=== PATIENT | male | born 1930 | race Caucasian/White ===

== ENCOUNTER 2016-09-18 09:52 | Inpatient (IN) | payer OTHER, MEDICARE ==
[~2016-09-18] VITALS: Ht 182.9 cm; Wt 139.9 kg
[~2016-09-18 09:52] MED LIST: ADVAIR 250-501 EACH INH; ALBUTEROL 3 ML3 ML INH; ASPIRIN EC81 M1 PO; ATROVENT HFA 121 PUF INH; AZITHROMYCIN500 MG PO; CALCIPOTRIENE60 G1 TOP; CLARITIN10 MG PO; DOVONEX0.0051 TD; FOLIC ACID1 M1 PO; HALOBETASOL PRO PO; HYDROXYZINE HCL25 M2 PO; LASIX20 MG PO; LASIX40 MG PO; MAGNESIUM OXID400 M1 PO; MEDROL4 M2 PO; MELOXICAM15 M1 PO; MELOXICAM15 MG PO; METHOTREXATE2.5 M1 PO; MOBIC 15MG15 MG PO; NAPROXEN500 MG PO; PREDNISONE10 MG PO; SIMVASTATIN40 M1 PO; TOPROL XL25 M1 PO; TOPROL XL50 MG PO; TRIAMCINOL0.1 %/453 TOP; TRIAMCINOLONE A15 G3 TOP; VENTOLIN HFA18 GM INH; VITAMIN D50000 IU PO; [UNRECOGNIZED DRUG - OTHER] PO
--- NOTE | 2016-09-18 10:16 | ED INFLUENZA/URI COMPLAINT ---
History of Present Illness General Chief Complaint: Upper Respiratory Sx/Fever Stated Complaint: URI Source: patient, family Exam Limitations: no limitations Vital Signs & Intake/Output Vital Signs & Intake/Output Vital Signs Date Time Temp Pulse Resp B/P Pulse O2 O2 Flow FiO2 Ox Delivery Rate 09/18 1431 120/84 09/18 1250 96.3 70 18 124/86 97 Room Air 09/18 1107 95 09/18 1015 98 09/18 1000 96.0 74 20 129/93 98 Room Air Allergies Coded Allergies: NO KNOWN ALLERGIES (12/23/15) Reconcile Medications Albuterol Sulfate (Ventolin Hfa) 18 GM HFA.AER.AD 2 PUF INH Q4-6 PRN PRN ASTHMA (Reported) Aspirin (Ecotrin) 81 MG TABLET.DR 1 TAB PO DAILY HEART HEALTH (Reported) Calcipotriene 60 GM CREAM..G. 1 CED TOP AD SKIN (Reported) FLUTICASONE/SALMETEROL (Advair 250-50 Diskus) 1 DSK DSK 1 PUFF INH BID BREATHING PROBLEMS (Reported) Folic Acid 1 MG TABLET 1 MG PO DAILY FOLIC ACID SUPPLEMENT (Reported) Furosemide (Lasix) 20 MG TAB 1 TAB PO DAILY CHF (Reported) Hydroxyzine HCl 25 MG TABLET 1 TAB PO Q8H itch Magnesium Oxide 400 MG TABLET 400 MG PO DAILY supplement Meloxicam 15 MG TABLET 1 TAB PO DAILY PAIN (Reported) Metoprolol Succ XL (Toprol XL) 25 MG TAB 25 MG PO DAILY heart Simvastatin 40 MG TABLET 1 TAB PO QPM CHOLESTEROL (Reported) Triamcinolone Acetonide 15 GM OINT...G. 1 CED TOP AD SKIN (Reported) apply to affected area(s) Triage Note: TRIAGE; PT TO ED C/O TIGHTNESS TO MIDSTERNAL REGION. HAS A HX OF ASTHMA. WENT TO PCP THE OTHER DAY AND TOLD IT MAY BE THE START OF A CHEST COLD. RA SAT 98% IN TRIAGE. PAIN IS NONRADIATING, FEELS SOB UPON EXERTION. USED NEBULIZER AT HOME TUBE MOLDER FIBERGLASS WITH SOME RELIEF. Triage Nurses Notes Reviewed? yes HPI: 85-year-old male arrives through triage to room 2 for evaluation of a cough that started last night. He has a history of asthma and has been using his inhalers since last night with no relief. He denies any fever or chills but definitely complains of chest pain, tightness and shortness of breath. He denies any abdominal pain, nausea, vomiting or diarrhea. He reports he has been eating and drinking well. He reports his cough is productive green sputum and he denies any recent illness or being around anybody that has been sick. He reports the chest pain is a tightness sensation around the top of his chest. Mild at this time. (TYSON TUCKER APRN) Past History Travel History Traveled to [place] past 21 day No Medical History Any Pertinent Medical History? see below for history Neurological: NONE EENT: PSORIASIS Cardiovascular: CAD, mitral stenosis Respiratory: asthma Gastrointestinal: NONE Hepatic: NONE Renal: NONE Musculoskeletal: gout, OSTEOARTHRITIS Psychiatric: NONE Endocrine: NONE Blood Disorders: NONE Cancer(s): NONE RECOVERY ADVOCATE/Reproductive: NONE Other Medical Hx: Psoriasis History of MRSA: No History of VRE: No History of CDIFF: No Influenza Vaccine: 05/08/16 Surgical History Surgical History: CABG Psychosocial History Who do you live with Patient/Self Services at Home Home Health Aide, Nursing What is your primary language Serbian Tobacco Use: Never used Family History Family History, If Any: SISTER FH: diabetes mellitus Hx Contributory? No ECHO Results (as available) EF% 55 (TYSON TUCKER APRN) Review of Systems Review of Systems Constitutional: Denies: no symptoms. EENTM: Denies: no symptoms. Respiratory: Reports: cough, short of breath, sputum production. Cardiovascular: Reports: see HPI, chest pain, edema. GI: Denies: no symptoms. Genitourinary: Denies: no symptoms. Musculoskeletal: Denies: no symptoms. Skin: Denies: no symptoms. Neurological/Psychological: Denies: no symptoms. Hematologic/Endocrine: Denies: no symptoms. Immunologic/Allergic: Denies: no symptoms. (TYSON TUCKER APRN) Physical Exam Physical Exam General Appearance: well developed/nourished, no apparent distress, alert, awake Head: atraumatic, normal appearance Eyes: Bilateral: normal appearance, PERRL, EOMI. Ears, Nose, Throat: normal ENT inspection, moist mucous membrane Neck: normal inspection, supple, full range of motion Respiratory: wheezing Cardiovascular: irregularly irregular Peripheral Pulses: 2+ radial (R), 2+ radial (L) Gastrointestinal: normal bowel sounds, soft, non-tender Back: normal inspection, normal range of motion Extremities: swelling (BILATERAL LOWER EXTREMITY SOFY) Neurologic/Psych: no motor/sensory deficits, awake, alert, oriented x 3, normal gait, normal mood/affect Skin: intact, normal color, warm/dry Core Measures Severe Sepsis Present: No Septic Shock Present: No (TYSON TUCKER APRN) Progress Differential Diagnosis: pneumonia, ami, copd EXACERBATION, ASTHMA EXACERBATION, BRONCHITIS, NEW ONSET a. FIB OR a. FIB Plan of Care: Orders Procedure Date/time Status CBC WITHOUT DIFFERENTIAL 09/19 0600 Active BASIC ELECTROLYTES PLUS BUN&CR 09/19 0600 Active Regular Diet 09/18 L Active LACTIC ACID 09/18 1732 Active TROPONIN LEVEL 09/18 1700 Active TROPONIN LEVEL 09/18 1432 Active LACTIC ACID 09/18 1432 Active CULTURE,URINE 09/18 1425 Active LOWER RESPIRATORY CULTURE 09/18 1425 Active URINALYSIS 09/18 1425 Active Vital Signs 09/18 1420 Active Teach/Educate 09/18 1420 Active Nutritional Intake, Monitor 09/18 1420 Active Isolation 09/18 1420 Active Intake & Output 09/18 1420 Active Patient Care Conference 09/18 1420 Active Activity/Ambulation 09/18 1420 Active TRC EVALUATION (GEN) 09/18 1328 Active Pathway - chart 09/18 1328 Active House Staff 09/18 1328 Active Patient Data 09/18 1328 Active Code Status 09/18 1328 Active Intake & Output 09/18 1248 Active Patient Data 09/18 1225 Active OXYGEN SETUP (GEN) 09/18 1222 Active Saline Lock 09/18 1222 Active Admit to inpatient 09/18 1222 Active Vital Signs 09/18 1222 Active Activity/Ambulation 09/18 1222 Active Code Status 09/18 1222 Complete Add-on Test (ER Only) 09/18 1055 Active AEROSOL (GEN) 09/18 1047 Complete Saline Lock 09/18 1026 Active Telemetry/District Wire Chief 09/18 1026 Active BLOOD CULTURE 09/18 1026 Active TROPONIN LEVEL 09/18 1026 Complete PARTIAL THROMBOPLASTIN TIME 09/18 1026 Complete PROTHROMBIN TIME 09/18 1026 Complete COMPREHENSIVE METABOLIC PANEL 09/18 1026 Complete CBC WITHOUT DIFFERENTIAL 09/18 1026 Complete B-TYPE NATRIURETIC PEP (BNP) 09/18 1026 Complete EKG 09/18 1026 Active Weight 09/18 UNK Active VTE Mechanical Prophylaxis 09/18 UNK Active Vital Signs 09/18 UNK Complete Telemetry/District Wire Chief 09/18 UNK Active Intake & Output 09/18 UNK Complete Current Medications Sig/Lissa Start time Last Medication Dose Stop Time Status Admin Azithromycin 500 MG DAILY@1230 09/19 1230 AC (Zithromax) Dextrose/Water 250 ML (D5W) Ceftriaxone Sodium 1,000 MG DAILY@1230 09/19 1230 AC (Rocephin) Prednisone 60 MG DAILY 09/19 1000 AC Acetaminophen 650 MG Q6 PRN 09/18 1330 AC (Tylenol) Oxycodone HCl 5 MG Q6P PRN 09/18 1330 AC (Roxicodone) Oxycodone/ 2 TAB Q6P PRN 09/18 1330 AC Acetaminophen (Percocet) Laboratory Tests 09/18/16 1444: Lactic Acid Pending, Troponin I Pending 09/18/16 1111: PT 11.5, INR 1.10, APTT 34 09/18/16 1100: Anion Gap 8, Estimated GFR > 60, BUN/Creatinine Ratio 19.0, Glucose 85, Calcium 8.2 L, Total Bilirubin 0.7, AST 35, ALT 44, Alkaline Phosphatase 76, Troponin I 0.04, Lcg-S-Bjfilwnxgoc Pept 4390 H, Total Protein 6.2 L, Albumin 3.5, Globulin 2.7, Albumin/Globulin Ratio 1.3, CBC w Diff NO MAN DIFF REQ, RBC 4.58 L, MCV 86.8, MCH 28.7, RDW 14.6 H, MPV 8.3, Gran % 69.6, Lymphocytes % 17.1 L, Monocytes % 9.2, Eosinophils % 4.0, Basophils % 0.1, Absolute Granulocytes 2.7, Absolute Lymphocytes 0.7 L, Absolute Monocytes 0.4, Absolute Eosinophils 0.2, Absolute Basophils 0, PUBS MCHC 33.1 Microbiology 09/18 1425 URINE ROUT: Urine Culture - ORD 09/18 1425 LOWER RESP: Respiratory Culture - ORD 09/18 1425 LOWER RESP: Gram Stain - ORD 09/18 1100 BLOOD: Blood Culture - RECD 09/18 1054 BLOOD: Blood Culture - RECD Diagnostic Imaging: Viewed by Me: Radiology Read. Discussed w/RAD: Radiology Read. 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 TECHNIQUE: 2 views of the chest were obtained. FINDINGS: Low lung volume is present bilaterally. Subtle airspace opacity is noted at right lung base likely represents hypoventilatory, atelectatic changes or subtle developing pneumonia. The remainder of the lung wells otherwise appear clear. The cardiomediastinal silhouette is mildly enlarged. Postop changes of sternotomy are present. Multilevel degenerative changes are noted in the spine. There is a prosthetic, likely aortic valve, visualized. There is no pleural effusion present. IMPRESSION: Low lung volume bilaterally with interval development of subtle airspace disease at right lung base, may represent hypoventilatory, atelectatic changes versus subtle developing pneumonia. Followup radiograph to resolution is recommended. No other significant change since 07/20/2016. DICTATED BY: GERALD TAMEZ MD DATE/TIME DICTATED:09/18/161111 GREEN BUILDING MATERIALS DESIGNER:JOAQUIN DATE/TIME TRANSCRIBED:09/18/161111 CONFIDENTIAL, DO NOT COPY WITHOUT APPROPRIATE AUTHORIZATION. <Electronically signed in Other Vendor System> SIGNED BY: GERALD TAMEZ MD 09/18/16 1125 12:16 PM spoke to patient and family about blood work, chest x-ray results and do ECG finding. Discussed the case with Dr. Diallo. Hospitalist was notified and will admit to telemetry for pneumonia with new onset atrial flutter. Did not start anticoagulation at this time, rate controlled and will discuss further with Dr. Lopez. 1:[address] Lopez we will start heparin drip with a bolus. Rectal exam negative. (GARRETT GRIMALDO,TYSON) Departure Departure Time of Disposition: 1217 Disposition: STILL A PATIENT Condition: Stable Clinical Impression Primary Impression: New onset atrial flutter Secondary Impressions: Pneumonia Qualifiers: Pneumonia type: due to unspecified organism Laterality: right Lung location: lower lobe of lung Qualified Code: J18.1 - Lobar pneumonia, unspecified organism Referrals: MARCELLA ENGLAND (PCP/Family) Departure Forms: Customer Survey General Discharge Information Admission Note Spoke With: DANNY MENDES MD Documentation of Exam: Documentation of any treatments & extenuating circumstances including Concerns Regarding Discharge (functional status, medication knowledge or non-compliance, living conditions, etc.) that warrant an admission rather than observation: Admission to telemetry for new onset atrial flutter, cardiology consult to Dr. Lopez. Also admission for pneumonia will need respiratory treatments, IV antibiotics, steroids. (TYSON TUCKER APRN) PA/NEWS PHOTOGRAPHER Co-Sign Statement Statement: ED Attending supervision documentation- x I saw and evaluated the patient. I have also reviewed all the pertinent lab results and diagnostic results. I agree with the findings and the plan of care as documented in the PA's/NEWS PHOTOGRAPHER's documentation. [] I have reviewed the ED Record and agree with the PA's/NEWS PHOTOGRAPHER's documentation. [] Additions or exceptions (if any) to the PAs/NEWS PHOTOGRAPHER's note and plan are summarized below: [] (DEB GAO,STEVE)
[2016-09-18 11:18] LABS: ABSOLUTE BASOPHIL COUNT 0 /CUMM (0.0-0.2); ABSOLUTE EOSINOPHIL COUNT 0.2 /CUMM (0.0-0.7); ABSOLUTE GRANULOCYTE CT 2.7 /CUMM (1.4-6.5); ABSOLUTE LYMPH COUNT 0.7 /CUMM (1.2-3.4); ABSOLUTE MONOCYTE COUNT 0.4 /CUMM (0.10-0.60); BASOPHIL % 0.1 % (0.0-2.0); GRANULOCYTE % 69.6 % (42.2-75.2); HEMATOCRIT 39.8 % (42-52); MEAN CORPUSCULAR HGB 28.7 PG (27.0-31.0); MEAN CORPUSCULAR HGB CONC 33.1 G/DL (33.0-37.0); MEAN CORPUSCULAR VOLUME 86.8 FL (80.0-94.0); MEAN PLATELET VOLUME 8.3 FL (7.4-10.4); PLATELET COUNT 115 /CUMM (130-400); RBC DISTRIBUTION WIDTH 14.6 % (11.5-14.5); RED BLOOD CELL CT 4.58 /CUMM (4.70-6.10)
--- NOTE | 2016-09-18 11:25 | RADIOLOGY REPORT ---
EXAMINATION: XR CHEST CLINICAL INFORMATION: Pneumonia COMPARISON: Chest done on 07/20/2016. TECHNIQUE: 2 views of the chest were obtained. FINDINGS: Low lung volume is present bilaterally. Subtle airspace opacity is noted at right lung base likely represents hypoventilatory, atelectatic changes or subtle developing pneumonia. The remainder of the lung wells otherwise appear clear. The cardiomediastinal silhouette is mildly enlarged. Postop changes of sternotomy are present. Multilevel degenerative changes are noted in the spine. There is a prosthetic, likely aortic valve, visualized. There is no pleural effusion present. IMPRESSION: Low lung volume bilaterally with interval development of subtle airspace disease at right lung base, may represent hypoventilatory, atelectatic changes versus subtle developing pneumonia. Followup radiograph to resolution is recommended. No other significant change since 07/20/2016.
[2016-09-18 11:28] LABS: PT 11.5 SEC (9.4-12.5); PTT 34 SEC (25-37)
[2016-09-18 16:21] VITALS: BP 126/70
--- NOTE | 2016-09-18 17:11 | History & Physical ---
CEM CHARLES 09/18/16 1710: General Information and HPI MD Statement: I have seen and personally examined LIZ PARSON and documented this H&P. The patient is a 85 year old M who presented with a patient stated chief complaint of [DYSPNEA]. Source of Information: patient Exam Limitations: no limitations History of Present Illness: This is 85 YO male with past medical history of CAD S/P CABG, aortic stenosis, psoriasis, osteoarthritis, gout came in today from home after chief complaints of shortness of breath and cought with greenish sputum. Apparently the patient was doing okay untill since last few days and especially since today mrmegan he started feeling shortenss of breath and productive cough with greenish sputum.He denied any chest pain, PND,fever, chiils, recent illness , any sick contact. He lives by himself and normally walks with a canem does all his IALDS himself. Allergies/Medications Allergies: Coded Allergies: NO KNOWN ALLERGIES (12/23/15) Home Med list Albuterol Sulfate (Ventolin Hfa) 18 GM HFA.AER.AD 2 PUF INH Q4-6 PRN PRN ASTHMA (Reported) Aspirin (Ecotrin) 81 MG TABLET.DR 1 TAB PO DAILY HEART HEALTH (Reported) Calcipotriene 60 GM CREAM..G. 1 CED TOP AD SKIN (Reported) FLUTICASONE/SALMETEROL (Advair 250-50 Diskus) 1 DSK DSK 1 PUFF INH BID BREATHING PROBLEMS (Reported) Folic Acid 1 MG TABLET 1 MG PO DAILY FOLIC ACID SUPPLEMENT (Reported) Furosemide (Lasix) 20 MG TAB 1 TAB PO DAILY CHF (Reported) Hydroxyzine HCl 25 MG TABLET 1 TAB PO Q8H itch Magnesium Oxide 400 MG TABLET 400 MG PO DAILY supplement Meloxicam 15 MG TABLET 1 TAB PO DAILY PAIN (Reported) Metoprolol Succ XL (Toprol XL) 25 MG TAB 25 MG PO DAILY heart Simvastatin 40 MG TABLET 1 TAB PO QPM CHOLESTEROL (Reported) Triamcinolone Acetonide 15 GM OINT...G. 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 Home Who Do You Live With? self Services at Home: Home Health Aide, Nursing Smoking Status: Never Smoked ETOH Use: occasional use Illicit Drug Use: denies illicit drug use Functional Ability ADLs Independent: dressing, eating, toileting, bathing. Ambulation: independent IADLs Independent: shopping, housework, finances, food prep, telephone, transportation , medication admin. Review of Systems Review of Systems Constitutional: Denies: chills, diaphoresis, fever, malaise, weakness. EENTM: Reports: no symptoms. Respiratory: Reports: cough, sputum production, wheezing. Denies: hemoptysis, orthopnea, short of breath. GI: Denies: abdominal pain, bloating, constipation, diarrhea, distention. Genitourinary: Denies: discharge, dysuria, frequency, hematuria. Musculoskeletal: Denies: back pain, gout, joint pain, joint swelling. Skin: Denies: cysts, change in skin color, change in hair/nails, dryness. Neurological/Psychological: Reports: no symptoms. Hematologic/Endocrine: Reports: no symptoms. Immunologic/Allergic: Reports: no symptoms. All Other Systems: Reviewed and Negative Exam & Diagnostic Data Last 24 Hrs of Vital Signs/I&O Vital Signs Date Time Temp Pulse Resp B/P Pulse O2 O2 Flow FiO2 Ox Delivery Rate 09/18 1621 97.5 72 18 126/70 95 Room Air 09/18 1511 97 Nasal 2.0L Cannula 09/18 1431 120/84 09/18 1250 96.3 70 18 124/86 97 Room Air 09/18 1107 95 09/18 1015 98 09/18 1000 96.0 74 20 129/93 98 Room Air Intake & Output 09/18 1600 09/18 0800 09/18 0000 Intake Total 250 Output Total 400 Balance -150 Intake, Oral 250 Output, Urine 400 Patient 144.696 kg Weight Physical Exam General Appearance Alert, Oriented X3, Cooperative, No Acute Distress Skin No Rashes, No Breakdown, No Significant Lesion HEENT Atraumatic, PERRLA, EOMI Neck Supple, No JVD, No thryomegaly Lymphatic B/L LOWER EXTREMITY EDEMA Cardiovascular Normal S1, Normal S2, No Murmurs Lungs B/L WHEEZING PRESENT Abdomen Normal Bowel Sounds, Soft, No Tenderness Neurological Strength at 5/5 X4 Ext, Normal Tone, Sensation Intact, Cranial Nerves 3-12 NL Extremities No Clubbing, No Cyanosis, No Edema, Normal Pulses Vascular Normal Pulses Last 24 Hrs of Labs/Harsh: Laboratory Tests 09/18/16 1815: Troponin I Pending 09/18/16 1815: Lactic Acid Pending 09/18/16 1455: Urine Color STRAW, Urine Clarity CLEAR, Urine pH 6.0, Ur Specific [place] <= 1.005, Urine Protein NEG, Urine Ketones NEG, Urine Nitrite NEG, Urine Bilirubin NEG, Urine Urobilinogen 1.0, Ur Leukocyte Esterase TRACE H, Ur Microscopic SEDIMENT EXAMINED, Urine WBC RARE, Ur Epithelial Cells RARE, Urine Hemoglobin NEG, Urine Glucose NEG 09/18/16 1444: Lactic Acid 1.5, Troponin I 0.04 09/18/16 1111: PT 11.5, INR 1.10, APTT 34 09/18/16 1100: Anion Gap 8, Estimated GFR > 60, BUN/Creatinine Ratio 19.0, Glucose 85, Calcium 8.2 L, Total Bilirubin 0.7, AST 35, ALT 44, Alkaline Phosphatase 76, Troponin I 0.04, Jav-P-Revmmnzxwjd Pept 4390 H, Total Protein 6.2 L, Albumin 3.5, Globulin 2.7, Albumin/Globulin Ratio 1.3, CBC w Diff NO MAN DIFF REQ, RBC 4.58 L, MCV 86.8, MCH 28.7, RDW 14.6 H, MPV 8.3, Gran % 69.6, Lymphocytes % 17.1 L, Monocytes % 9.2, Eosinophils % 4.0, Basophils % 0.1, Absolute Granulocytes 2.7, Absolute Lymphocytes 0.7 L, Absolute Monocytes 0.4, Absolute Eosinophils 0.2, Absolute Basophils 0, PUBS MCHC 33.1 Microbiology 09/18 1454 URINE ROUT: Urine Culture - RECD 02/11 1455 LOWER RESP: Respiratory Culture - RES 09/18 1455 LOWER RESP: Gram Stain - RES 09/18 1100 BLOOD: Blood Culture - RECD 09/18 1054 BLOOD: Blood Culture - RECD Diagnostic Data EKG Results will repeat EKG as the EKG was not good qualtiy CXR Results IMPRESSION: Low lung volume bilaterally with interval development of subtle airspace disease at right lung base, may represent hypoventilatory, atelectatic changes versus subtle developing pneumonia. Followup radiograph to resolution is recommended. No other significant change since 07/20/2016. Assessment/Plan Assessment: This is 85 YO male with past medical history of CAD S/P CABG, aortic stenosis, psoriasis, osteoarthritis, gout, MS,COPD not on home oxygen ( need to confirm with niece came in today from home after chief complaints of shortness of breath and cought with greenish sputum and substernal chest discomfort. Vitals : afebrile, normotensive, pulse - 70, rr - 20, 95% on 2 litres. Labs : white count - 4.0. h/h - 13.1/39.8, plt - 115 CXR : Low lung volume bilaterally with interval development of subtle airspace disease at right lung base, may represent hypoventilatory, atelectatic changes versus subtle developing pneumonia. Followup radiograph to resolution is recommended. 1st lactic acid < 2 , but secodn icnreased at 3, will check another with am labs to trend. WE will admit the patient to telemetry for continuos cardiac monitoring. Problem list alongwith assesment and plan : #1 substernal Chest discomfort/ rule out ACS * He descrined cheat pain which worsened with coughing, 3 to 4/10, denied pressure like pain or radiation. * Continue to monitor vitals every shift. * Continue telemetry monitoring, first set of troponin negatvie, continue to trend ekg and troponin. * The first EKF had lot of artifacts, therefore please repeat EKG. * Cardiology consulted. * We will continue home medication of metoprolol and aspirin. #2 Suspected Right Lower Lobe pnuemonia- * He is afebrile, no white count, however he complained of cough with green sputum. * Patient received one time ceftrixone and azithromycin. * continue to follow pancultures. * Ct azithromycin iv and ceftrixone for now, if cultures are negatvie and Mr. Lucero is stable, consider DC AX. #3 Atrial Flutter v/s fib? * initial EKF showed A fib, however it had lot of artifact * ? A fib * repeat EKG. * ER doctor talked to DR little and he was started on iv heaprin * Ct iv heparin * continue to folloe cardiology. #4 COPD Exacerbation * PAtient had b/l wheezind and soudned a little tigth in chest. * Ct TRC mebulisations. * He is not on home oxygen * ct o2 by nasal cannula * taper as tolerated. * Will treat with po prednisone 60 mg daily, ct to taper. * Ct home inhalers. #5 Hyperlipidemia * Ct statin at home dosage. #6 Psoriasis- * Ct hoem medication, calciptreione, triamcinolone for local application #7 Lower extremtiy edema * Ct lasix 20 mg Daily. FC DVT px : iv heaprin heart healthy diet As Ranked By This Provider Problem List: 1. Arthritis, wrist 2. Hypoxia 3. HTN (hypertension) 4. New onset atrial flutter 5. Hypotension Core Measures/Miscellaneous Acute Coronary Syndrome ACS Diagnosis: No Cerebrovascular Accident CVA/TIA Diagnosis: No Congestive Heart Failure CHF Diagnosis: No Venous Thromboembolism VTE Risk Factors: Age > 40 VTE Prophylaxis Ordered Inpt: [facility] d/t: No contraindications No VTE Pharm Prophylaxis d/t: No contraindications VTE Diagnosis: No VTE Type: NONE VTE Confirmed by (Test): NONE Severe Sepsis Severe Sepsis Present: No Septic Shock Septic Shock Present: No Miscellaneous Documentation Attending Case Discussed With: DANNY MENDES MD Primary Care Physician: MARCELLA ENGLAND Patient sees these Specialists cardio Level of Patient Care: Telemetry Resident Review Statement Resident Statement: admitted by DANNY Daniels MD 09/18/16 0854: Attending Review Statement Attending Statement Attending Statement: examined this patient, discuss w/resident/PA/REBAR FABRICATOR, agreed w/resident/PA/REBAR FABRICATOR, reviewed EMR data (avail), reviewed images, amended to note Attending Assessment/Plan: The patient is an 85 yo male with h/o psoriasis, HL, CAD (s/p CABG), obstructive lung disease, mitral stenosis, gout, and HTN who presented in the ED on the day of admission with complaint of cough and dyspnea with sudden onset today along with some substernal chest discomfort (associated with cough). Cough has been productive of some green sputum. EKG in the ED suggested ?atrial fibrillation with PVCs (poor tracing). He denied any fever, chills or palpitations. CXR showed possible RLL infiltrate/atelectasis. Physical Exam: VS: T 96, P 74, R 20, BP 129/93, PO 98% RA HEENT: eyes- PERRLA, EOMI chip- dry mucosa, w/o lesions Neck: No JVD or bruits Chest: + mild bilat wheeze with diminished BS and occasional rhonchi Cor: sl irreg rhythm, nl rate, nl S1, S2 w/o murm Abd: BS+, soft, NT, - HSM Ext: no edema, pulses 2+ Neuro: non-focal Labs/Tests: as above Impression/Plan: #Chest Pain/CAD- doubt ischemia pain as is atypical and associated with cough. Does have h/o CAD and is S/P CABG. Plan: Admit to telemetry. Check serial EKG's & troponins as per protocol. Cardiology consult- Dr. Lopez (cover for Dr. Hutchins). Continue Metoprolol and ASA. #Atrial Fibrillation- ? initial EKG read as afib which would be new for this patient. There is a great deal of baseline artifact. Plan: Repeat EKG and monitor on telemetry. IV heparin per Dr. Lopez. Continue Metoprolol. #Right Lower Lobe infiltrate- vs atelectasis. Patient with green sputum, however no fever or chills. Begun on Abx in ED. ? Community acquired pneumonia. Plan: Will culture sputum and follow exam. Ceftriaxone/Zithromax begun in ED. #COPD Exacerbation- some wheeze noted. Plan: Albuterol aerosol, po prednisone and follow exam. #Hyperlipidemia- on Simvastatin. Plan: Continue Simvastatin. #Psoriasis- on Calcipotriene Cream. Plan: Continue Cream.
--- NOTE | 2016-09-18 17:13 | Admission Certification ---
Admission Certification Certification Statement - As attending physician, I certify that at the time of - admission, based on clinical presentation, severity of - symptoms, need for further diagnostic testing and - therapeutic interventions, and risk of adverse outcomes - without in-hospital treatment, in my clinical assessment, - this patient requires an acute hospital stay for a minimum - of two nights or longer. I have also considered psychsocial - factors such as support system, advanced age, financial - issues, cognitive issues, and failed out-patient treatments, - past re-admission history, safety of patient, and lack of - compliance as applicable. Specific rationale supporting this admission is: The patient presents with chest pain and dyspnea with cough and green sputum. Possible bsilar infiltrate on CXR. ?Atrial flutter on EKG. Needs admit to telemetry floor. Cardiology consult Dr. Lopez. IV heparin, serial troponin levels. Will use po prednisone and antibiotics for possible community acquired pneumonia (Ceftriaxone/Zithromax).
--- NOTE | 2016-09-18 20:58 | Cons- Cardiology ---
General Information and HPI Consulting Request Date of Consult: 09/17/16 Requested By: DANNY MENDES MD Reason for Consult: A-Fib History of Present Illness: The patient is an 82-year-old male with history of CAD, status post CABG, hypertension, COPD who presents to the emergency department with complaint of cough and shortness of breath times one day. The cough has been practically greenish sputum. He also complained of substernal chest tightness H was not exertional and did not radiate. The discomfort was a 3-4 out of 10 in severity. In the emergency department he was found to be in new atrial fibrillation. He was also noted to have evidence of pneumonia. No diaphoresis. No syncope. No lightheadedness or dizziness. No nausea or vomiting. Allergies/Medications Allergies: Coded Allergies: NO KNOWN ALLERGIES (12/23/15) Home Med List: Albuterol Sulfate (Ventolin Hfa) 18 GM HFA.AER.AD 2 PUF INH Q4-6 PRN PRN ASTHMA (Reported) Apixaban (Eliquis) 5 MG TABLET 5 MG PO Q12H AF Aspirin (Ecotrin) 81 MG TABLET.DR 1 TAB PO DAILY HEART HEALTH (Reported) Calcipotriene 60 GM CREAM..G. 1 CED TOP AD SKIN (Reported) FLUTICASONE/SALMETEROL (Advair 250-50 Diskus) 1 DSK DSK 1 PUFF INH BID BREATHING PROBLEMS (Reported) Folic Acid 1 MG TABLET 1 MG PO DAILY FOLIC ACID SUPPLEMENT (Reported) Furosemide (Lasix) 20 MG TAB 1 TAB PO DAILY CHF (Reported) Hydroxyzine HCl 25 MG TABLET 1 TAB PO Q8H itch Magnesium Oxide 400 MG TABLET 400 MG PO DAILY supplement Meloxicam 15 MG TABLET 1 TAB PO DAILY PAIN (Reported) Metoprolol Succ XL (Toprol XL) 25 MG TAB 25 MG PO DAILY heart Prednisone 10 MG TABLET 1 TAB PO BID steroid taper On Take 09/21-09/23 3 tablets 09/24-09/25 2 tablets 09/26-09/27 1 tablets then stop Simvastatin 40 MG TABLET 1 TAB PO QPM CHOLESTEROL (Reported) Triamcinolone Acetonide 15 GM OINT...G. 1 CED TOP AD SKIN (Reported) apply to affected area(s) Current Medications: Current Medications Sig/Lissa Start time Last Medication Dose Route Stop Time Status Admin Acetaminophen 650 MG Q6 PRN 09/18 1330 AC PO Albuterol Sulfate 3 ML ONCE ONE 09/18 1030 DC 09/18 INH 09/18 1031 1046 Azithromycin 500 MG DAILY@1230 09/19 1230 AC Dextrose/Water 250 ML IV Azithromycin 500 MG ONCE ONE 09/18 1215 DC 09/18 Dextrose/Water 250 ML IV 09/18 1314 1233 Ceftriaxone Sodium 1,000 MG DAILY@1230 09/19 1230 AC IV Ceftriaxone Sodium 0 .STK-MED ONE 09/18 1220 DC .ROUTE Ceftriaxone Sodium 1,000 MG ONCE ONE 09/18 1215 DC 09/18 IV 09/18 1216 1227 Enoxaparin Sodium 30 MG DAILY 09/18 1327 DC SC Heparin Sodium 0 .STK-MED ONE 09/18 1350 DC (Porcine) .ROUTE Heparin Sodium 5,000 UNIT ONCE ONE 09/18 1345 DC 09/18 (Porcine) IV 09/18 1346 1423 N/A 1 UNIT Heparin Sodium/ 25,000 UNIT Q24H 09/18 1345 AC 09/18 Dextrose IV 1427 Dextrose/Water 500 ML Ipratropium [place] 2.5 ML ONCE ONE 09/18 1030 DC 09/18 INH 09/18 1031 1046 Oxycodone HCl 5 MG Q6P PRN 09/18 1330 AC PO Oxycodone/ 2 TAB Q6P PRN 09/18 1330 AC Acetaminophen PO Prednisone 60 MG DAILY 09/19 1000 AC PO Prednisone 0 .STK-MED ONE 09/18 1146 DC PO Prednisone 60 MG ONCE ONE 09/18 1145 DC 09/18 PO 09/18 1146 1147 Review of Systems Review of Systems: No rash. No tremor. No melena. No syncope. All other systems were reviewed, and were noted to be negative. 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 Home Who Do You Live With? self Services at Home: Home Health Aide, Nursing Smoking Status: Never Smoked ETOH Use: occasional use Illicit Drug Use: denies illicit drug use Functional Ability ADLs Independent: dressing, eating, toileting, bathing. Ambulation: independent IADLs Independent: shopping, housework, finances, food prep, telephone, transportation , medication admin. ECHO Results (as available) EF% 55 Exam & Diagnostic Data Vital Signs and I&O Vital Signs Date Time Temp Pulse Resp B/P Pulse O2 O2 Flow FiO2 Ox Delivery Rate 09/18 1621 97.5 72 18 126/70 95 Room Air 09/18 1511 97 Nasal 2.0L Cannula 09/18 1431 120/84 09/18 1250 96.3 70 18 124/86 97 Room Air 09/18 1107 95 09/18 1015 98 09/18 1000 96.0 74 20 129/93 98 Room Air Intake & Output 09/18 1600 09/18 0800 09/18 0000 09/17 1600 09/17 0800 09/17 0000 Intake Total 250 Output Total 400 Balance -150 Intake, Oral 250 Output, Urine 400 Patient 319 lb Weight Physical Exam: Gen: The patient is in no acute distress HEENT: Normal nose, ears, and oropharynx. Pupils equal bilaterally. Conjunctiva normal. Neck: Supple with no JVD, no masses, and no thyromegaly Lungs: Bilateral wheeze, scattered rhonchi with normal respiratory effort Heart: Irregularly irregular, S1, S2, no murmurs. No peripheral edema, 2+ pulses in the lower extremities bilaterally Abdomen: Soft, nontender, no masses. No hepatomegaly. No splenomegaly Extremities: No clubbing or cyanosis. Normal muscle strength in the upper and lower extremities Skin: Normal skin turgor with no skin ulcers or lesions noted. Neuro: Cranial nerves intact. Sensation intact Psych: Alert and oriented 3 with appropriate affect Labs/Harsh Results: Laboratory Tests 09/18 09/18 09/18 09/18 2045 1815 1815 1455 Chemistry Lactic Acid (0.7 - 2.1 mmol/L) 3.0 H Troponin I (<0.11 ng/ml) 0.03 Coagulation APTT (25 - 37 SEC) 71 H Urines Urine Color (YEL,AMB,STR) STRAW Urine Clarity (CLEAR) CLEAR Urine pH (5.0 - 8.0) 6.0 Ur Specific [place] (1.001 - 1.035) <= 1.005 Urine Protein (NEG,<30 MG/DL) NEG Urine Ketones (NEG) NEG Urine Nitrite (NEG) NEG Urine Bilirubin (NEG) NEG Urine Urobilinogen (0.1 - 1.0 EU/dl) 1.0 Ur Leukocyte Esterase (NEG) TRACE H Ur Microscopic SEDIMENT EXAMINED Urine WBC (0 - 2 /HPF) RARE Ur Epithelial Cells (NONE,FEW) RARE Urine Hemoglobin (NEG) NEG Urine Glucose (N MG/DL) NEG 09/18 09/18 09/18 1444 1111 1100 Chemistry Sodium (137 - 145 mmol/L) 144 Potassium (3.5 - 5.1 mmol/L) 4.1 Chloride (98 - 107 mmol/L) 107 Carbon Dioxide (22 - 30 mmol/L) 28 Anion Gap (5 - 16) 8 BUN (9 - 20 mg/dL) 19 Creatinine (0.7 - 1.2 mg/dL) 1.0 Estimated GFR (>60 ml/min) > 60 BUN/Creatinine Ratio (7 - 25 %) 19.0 Glucose (65 - 99 mg/dL) 85 Lactic Acid (0.7 - 2.1 mmol/L) 1.5 Calcium (8.4 - 10.2 mg/dL) 8.2 L Total Bilirubin (0.2 - 1.3 mg/dL) 0.7 AST (17 - 59 U/L) 35 ALT (21 - 72 U/L) 44 Alkaline Phosphatase (< 127 U/L) 76 Troponin I (<0.11 ng/ml) 0.04 0.04 Osc-X-Uqgfogysqzx Pept (<125 pg/mL) 4390 H Total Protein (6.3 - 8.2 g/dL) 6.2 L Albumin (3.5 - 5.0 g/dL) 3.5 Globulin (1.9 - 4.2 gm/dL) 2.7 Albumin/Globulin Ratio (1.1 - 2.2 %) 1.3 Coagulation PT (9.4 - 12.5 SEC) 11.5 INR (0.90 - 1.17) 1.10 APTT (25 - 37 SEC) 34 Hematology CBC w Diff NO MAN DIFF REQ WBC (4.8 - 10.8 /CUMM) 4.0 L RBC (4.70 - 6.10 /CUMM) 4.58 L Hgb (14.0 - 18.0 G/DL) 13.1 L Hct (42 - 52 %) 39.8 L MCV (80.0 - 94.0 FL) 86.8 MCH (27.0 - 31.0 PG) 28.7 RDW (11.5 - 14.5 %) 14.6 H Plt Count (130 - 400 /CUMM) 115 L MPV (7.4 - 10.4 FL) 8.3 Gran % (42.2 - 75.2 %) 69.6 Lymphocytes % (20.5 - 51.1 %) 17.1 L Monocytes % (1.7 - 9.3 %) 9.2 Eosinophils % (0 - 5 %) 4.0 Basophils % (0.0 - 2.0 %) 0.1 Absolute Granulocytes (1.4 - 6.5 /CUMM) 2.7 Absolute Lymphocytes (1.2 - 3.4 /CUMM) 0.7 L Absolute Monocytes (0.10 - 0.60 /CUMM) 0.4 Absolute Eosinophils (0.0 - 0.7 /CUMM) 0.2 Absolute Basophils (0.0 - 0.2 /CUMM) 0 PUBS MCHC (33.0 - 37.0 G/DL) 33.1 Diagnostic Data EKG Results EKG tracing is independently reviewed, and reveals atrial fibrillation with ventricular response of 107, premature ventricular complexes, right bundle branch block, left anterior fascicular block, possible lateral infarct, old CXR Results Chest x-ray: Low lung volume bilaterally with interval development of subtle airspace disease at right lung base, may represent hypoventilatory, atelectatic changes versus subtle developing pneumonia. Followup radiograph to resolution is recommended. No other significant change since 07/20/2016. Other Results Echocardiogram 06/05/16: 1. This was a technically difficult and very limited study due to the patient's body habitus. 2. The aortic valve was not well visualized. By doppler criteria, there is no evidence of valvular stenosis. 3. Significant thickening and calcification of the mitral leaflets is present with moderate to severe anular calcification. THere is moderate mitral stenosis present with an estimated valve area of 1.0 cm2 with minimal to mild mitral insufficiency and mild tomoderate left atrial enlargement. 4. No significant pericardial fluid was detected. 5. The left ventricular chamber size appears normal. Accurate wall motion assessment was not possible. THe ejection fraction appears normal. A followup study with the administration of IV contrast might be useful in this patient. MIld diastolic dysfunction is present. 6. THe right heart structures were not optimally assessed. The RV systolic pressure could not be assessed on this examination. Assessment/Plan Assessment/Plan Assessment: 1. CAD, status post CABG 2. History of moderate mitral stenosis 3. Community acquired pneumonia and COPD exacerbation 4. New-onset atrial fibrillation Recommendations: * IV heparin per protocol * Check serial troponin to rule out myocardial infarction * Agree with IV antibiotics * Continue. Metoprolol for rate control Consult Acknowledgment - Thank you for your consult request.
[2016-09-18 21:54] LABS: PTT 71 SEC (25-37)
[2016-09-18 22:00] VITALS: BP 100/80
[2016-09-19 08:12] LABS: ABSOLUTE BASOPHIL COUNT 0 /CUMM (0.0-0.2); ABSOLUTE EOSINOPHIL COUNT 0 /CUMM (0.0-0.7); ABSOLUTE GRANULOCYTE CT 3.8 /CUMM (1.4-6.5); ABSOLUTE LYMPH COUNT 0.9 /CUMM (1.2-3.4); ABSOLUTE MONOCYTE COUNT 0.6 /CUMM (0.10-0.60); BASOPHIL % 0.3 % (0.0-2.0); EOSINOPHIL % 0.6 % (0-5); GRANULOCYTE % 70.6 % (42.2-75.2); HEMATOCRIT 37.8 % (42-52); MEAN CORPUSCULAR HGB CONC 32.8 G/DL (33.0-37.0); MEAN CORPUSCULAR VOLUME 88.5 FL (80.0-94.0); MEAN PLATELET VOLUME 8.8 FL (7.4-10.4); PLATELET COUNT 112 /CUMM (130-400); RBC DISTRIBUTION WIDTH 14.5 % (11.5-14.5); RED BLOOD CELL CT 4.28 /CUMM (4.70-6.10); WHITE BLOOD CELL COUNT 5.3 /CUMM (4.8-10.8)
[2016-09-19 08:42] VITALS: BP 108/76
[2016-09-19 10:34] LABS: PTT 54 SEC (25-37)
--- NOTE | 2016-09-19 11:18 | PN- Housestaff ---
CARRIE GAO,[facility] 09/19/16 1118: Subjective Follow-up For: New onset atrial fibrillation Pneumonia Tele-Events Since Last Visit: Iris kwon heart rate 73-98 Subjective: Patient was seen and examined today, he is alert oriented to place and person. He reported cough with green sputum, culture was sent this morning. He denied any chest pain, shortness of breath, diaphoresis, lightheadedness. No overnight events reported by the nurse or the patient. Vital signs are stable Review of Systems Constitutional: Reports: see HPI. Objective Last 24 Hrs of Vital Signs/I&O Vital Signs Date Time Temp Pulse Resp B/P Pulse O2 O2 Flow FiO2 Ox Delivery Rate 09/19 1134 98 Nasal 2.0L Cannula 09/19 0942 65 110/62 09/19 0842 98.4 76 20 108/76 97 Nasal 2.0L Cannula 09/19 0800 Nasal 2.0L Cannula 09/19 0000 Nasal 2.0L Cannula 09/18 2259 Nasal 2.0L Cannula 09/18 2200 98.5 85 20 100/80 95 Nasal 2.0L Cannula 09/18 1621 97.5 72 18 126/70 95 Room Air 09/18 1511 97 Nasal 2.0L Cannula 09/18 1431 120/84 Intake & Output 09/19 1600 09/19 0800 09/19 0000 Intake Total 100 100 Output Total 500 900 Balance -400 -800 Intake, Oral 100 100 Output, Urine 500 900 Patient 140.84 kg Weight Physical Exam General Appearance: Alert, oriented 2 Skin: psoriatic lesions bilateral lower extremity HEENT: Atraumatic, PERRLA, EOMI, Mucous Membr. moist/pink Cardiovascular: irregular irregular Lungs: Clear to Auscultation, Normal Air Movement Abdomen: Normal Bowel Sounds, Soft, No Tenderness Neurological: Normal Speech, Strength at 5/5 X4 Ext, Normal Tone, Sensation Intact, Cranial Nerves 3-12 NL, Reflexes 2+ Extremities: No Clubbing, No Cyanosis, No Edema, Normal Pulses Assessment/Plan Assessment: This is 85 YO male with past medical history of CAD S/P CABG, aortic stenosis, psoriasis, osteoarthritis, gout, MS,COPD not on home oxygen ( need to confirm with niece came in today from home after chief complaints of shortness of breath and cought with greenish sputum and substernal chest discomfort. CXR : Low lung volume bilaterally with interval development of subtle airspace disease at right lung base, may represent hypoventilatory, atelectatic changes versus subtle developing pneumonia. Followup radiograph to resolution is recommended. Problem list #1 substernal Chest discomfort/ rule out ACS * Patient denied any chest pain, shortness of breath today * Cardiology consultation was obtained, thanks for recommendation * Continue IV heparin * Troponin trended down * Continue aspirin 81 daily #2 Suspected Right Lower Lobe pnuemonia- * Temperature 98.4 Tmax 97.5 * No leukocytosis * Culture pending * Ct azithromycin iv and ceftrixone for now, if cultures are negatvie and Mr. Lucero is stable, consider DC AX * Lactic acid trended down #3 Atrial Flutter v/s fib? * New onset A. fib, heart rate 51-89 * Ct iv heparin * Continue metoprolol succinate 25 mg by mouth daily #4 COPD Exacerbation * Ct TRC mebulisations. * 2 L with 97% saturation * Prednisone 60 mg daily, ct to taper * Ct home inhalers #5 Hyperlipidemia * Atorvastatin 40 daily #6 Psoriasis- * Ct hoem medication, calciptreione, triamcinolone for local application #7 Lower extremtiy edema * Ct lasix 20 mg Daily. FC DVT px : iv heaprin heart healthy diet Problem List: 1. New onset atrial flutter 2. Chest pain Pain Ratin Pain Location: None Pain Goal: Pain 4 or less Pain Plan: Mild pain pathway Tomorrow's Labs & Rationales: CBC MELISSA MENDES MD,DANNY 09/19/16 1252: Attending MD Review Statement Attending Statement Attending MD Statement: examined this patient, discuss w/resident/PA/ASIAN ART CURATOR, agreed w/resident/PA/ASIAN ART CURATOR, reviewed EMR data (avail), amended to note Attending Assessment/Plan: The patient was seen and discussed with house staff. Troponins negative thus far , no chest pain today. Afib on monitor with rate controlled. Appreciate Cardiology follow-up. Continue care as outlined.
--- NOTE | 2016-09-19 14:02 | PN- Cardiology ---
Subjective Subjective: Feeling well. No current chest pain. No shortness breath. No palpitations. He remains in atrial fibrillation with rate under control. Objective Vital Signs and I&Os Vital Signs Date Time Temp Pulse Resp B/P Pulse O2 O2 Flow FiO2 Ox Delivery Rate 09/19 1134 98 Nasal 2.0L Cannula 09/19 0942 65 110/62 09/19 0842 98.4 76 20 108/76 97 Nasal 2.0L Cannula 09/19 0800 Nasal 2.0L Cannula 09/19 0000 Nasal 2.0L Cannula 09/18 2259 Nasal 2.0L Cannula 09/18 2200 98.5 85 20 100/80 95 Nasal 2.0L Cannula 09/18 1621 97.5 72 18 126/70 95 Room Air 09/18 1511 97 Nasal 2.0L Cannula 09/18 1431 120/84 Intake & Output 09/19 1600 09/19 0800 09/19 0000 09/18 1600 09/18 0800 09/18 0000 Intake Total 100 100 250 Output Total 500 900 400 Balance -400 -800 -150 Intake, Oral 100 100 250 Output, Urine 500 900 400 Patient 311 lb 319 lb Weight Physical Exam: Gen: The patient is in no acute distress HEENT: Normal nose, ears, and oropharynx. Pupils equal bilaterally. Conjunctiva normal. Neck: Supple with no JVD, no masses, and no thyromegaly Lungs: Bilateral wheeze, scattered rhonchi with normal respiratory effort Heart: Irregularly irregular, S1, S2, no murmurs. No peripheral edema, 2+ pulses in the lower extremities bilaterally Abdomen: Soft, nontender, no masses. No hepatomegaly. No splenomegaly Extremities: No clubbing or cyanosis. Normal muscle strength in the upper and lower extremities Skin: Normal skin turgor with no skin ulcers or lesions noted. Neuro: Cranial nerves intact. Sensation intact Current Medications: Current Medications Sig/Lissa Start time Last Medication Dose Route Stop Time Status Admin Acetaminophen 650 MG Q6 PRN 09/18 1330 AC PO Albuterol Sulfate 3 ML Q4P PRN 09/18 2315 AC 09/19 INH 1130 Aspirin Buffered 81 MG DAILY 09/19 1000 AC 09/19 PO 0941 Atorvastatin Calcium 40 MG DAILY 09/19 1000 AC 09/19 PO 0942 Azithromycin 500 MG DAILY@1230 09/19 1230 AC 09/19 Dextrose/Water 250 ML IV 1239 Ceftriaxone Sodium 1,000 MG DAILY@1230 09/19 1230 AC 09/19 IV 1239 Enoxaparin Sodium 30 MG DAILY 09/18 1327 DC SC Folic Acid 1 MG DAILY 09/19 1000 AC 09/19 PO 0942 Furosemide 20 MG DAILY 09/19 1000 AC 09/19 PO 0942 Heparin Sodium 2,300 UNIT ONCE ONE 09/19 1140 DC 09/19 (Porcine) IV 09/19 1141 1238 Heparin Sodium/ 25,000 UNIT Q24H 09/18 1345 AC 09/18 Dextrose IV 1427 Dextrose/Water 500 ML Metoprolol Succinate 25 MG DAILY 09/19 1000 AC 09/19 PO 0942 Oxycodone HCl 5 MG Q6P PRN 09/18 1330 AC PO Oxycodone/ 2 TAB Q6P PRN 09/18 1330 AC Acetaminophen PO Prednisone 60 MG DAILY 09/19 1000 AC 09/19 PO 0942 Triamcinolone 1 CED TIDPRN PRN 09/19 0130 AC Acetonide TOP Results Last 48 Hrs of Labs/Mics: Laboratory Tests 09/19/16 0857: APTT 54 H 09/19/16 0742: Anion Gap 5, Estimated GFR > 60, BUN/Creatinine Ratio 21.0, Lactic Acid 0.9, CBC w Diff NO MAN DIFF REQ, RBC 4.28 L, MCV 88.5, MCH 29.0, RDW 14.5, MPV 8.8, Gran % 70.6, Lymphocytes % 17.4 L, Monocytes % 11.1 H, Eosinophils % 0.6, Basophils % 0.3, Absolute Granulocytes 3.8, Absolute Lymphocytes 0.9 L, Absolute Monocytes 0.6, Absolute Eosinophils 0, Absolute Basophils 0, PUBS MCHC 32.8 L 09/18/16 2045: APTT 71 H 09/18/16 1815: Troponin I 0.03 09/18/16 1815: Lactic Acid 3.0 H 09/18/16 1455: Urine Color STRAW, Urine Clarity CLEAR, Urine pH 6.0, Ur Specific [place] <= 1.005, Urine Protein NEG, Urine Ketones NEG, Urine Nitrite NEG, Urine Bilirubin NEG, Urine Urobilinogen 1.0, Ur Leukocyte Esterase TRACE H, Ur Microscopic SEDIMENT EXAMINED, Urine WBC RARE, Ur Epithelial Cells RARE, Urine Hemoglobin NEG, Urine Glucose NEG 09/18/16 1444: Lactic Acid 1.5, Troponin I 0.04 09/18/16 1111: PT 11.5, INR 1.10, APTT 34 09/18/16 1100: Anion Gap 8, Estimated GFR > 60, BUN/Creatinine Ratio 19.0, Glucose 85, Calcium 8.2 L, Total Bilirubin 0.7, AST 35, ALT 44, Alkaline Phosphatase 76, Troponin I 0.04, Ded-K-Muizwpuszuh Pept 4390 H, Total Protein 6.2 L, Albumin 3.5, Globulin 2.7, Albumin/Globulin Ratio 1.3, CBC w Diff NO MAN DIFF REQ, RBC 4.58 L, MCV 86.8, MCH 28.7, RDW 14.6 H, MPV 8.3, Gran % 69.6, Lymphocytes % 17.1 L, Monocytes % 9.2, Eosinophils % 4.0, Basophils % 0.1, Absolute Granulocytes 2.7, Absolute Lymphocytes 0.7 L, Absolute Monocytes 0.4, Absolute Eosinophils 0.2, Absolute Basophils 0, PUBS MCHC 33.1 Assessment/Plan Assessment/Plan Assessment: 1. CAD, status post CABG 2. History of moderate mitral stenosis 3. History of bioprosthetic aortic valve 4. Community acquired pneumonia and COPD exacerbation 5. New-onset atrial fibrillation Recommendations: * IV heparin per protocol. Change to oral anticoagulation (NOAC or warfarin) prior to discharge * Myocardial infarction ruled out with negative troponin 3 * Agree with IV antibiotics * Continue PO metoprolol for rate control. Continue telemetry? Yes
[2016-09-19 16:16] VITALS: BP 106/60
[2016-09-19 17:59] LABS: PTT 74 SEC (25-37)
[2016-09-20 00:06] VITALS: BP 100/70
--- NOTE | 2016-09-20 07:33 | PN- Housestaff ---
JUAN ANTONIO GAO,MIYA 09/20/16 0732: Subjective Follow-up For: New onset atrial fibrillation Pneumonia Complaints: complaining of difficulty in the breathing Tele-Events Since Last Visit: Atrial flutter and fibrillation, bundle branch block, PVCs, trigeminy, heart rate between 60-70 Subjective: Patient is seen and examined at the bedside. He was complaining of difficulty in breathing, especially during inspiration. He feels the air is stucking in his chest and he is also feeling wheezy. He denies of any chest pain, palpitation, bleeding from any site of his body. Review of Systems Constitutional: Reports: weakness. Denies: chills, diaphoresis, fever, malaise. EENTM: Denies: no symptoms. Cardiovascular: Denies: chest pain, edema, orthopena, palpitations, peripheral edema. Respiratory: Reports: short of breath, wheezing. Denies: cough, hemoptysis, orthopnea, sputum production, stridor. Gastrointestinal: Denies: abdominal pain, bloating, constipation, diarrhea, distention, bowel incontinence, melena, nausea, bloody stool. Genitourinary: Denies: no symptoms. Musculoskeletal: Reports: back pain. Skin: Denies: no symptoms. Neurological/Psychological: Reports: anxiety, depressed. Objective Last 24 Hrs of Vital Signs/I&O Vital Signs Date Time Temp Pulse Resp B/P Pulse O2 O2 Flow FiO2 Ox Delivery Rate 09/20 2052 97 Nasal 2.0L Cannula 09/20 1600 Nasal 2.0L Cannula 09/20 1533 97.7 72 20 122/70 96 Nasal 2.0L Cannula 09/20 1003 74 112/70 09/20 0929 96 Nasal 2.0L Cannula 09/20 0813 97.7 74 20 112/70 97 Nasal 2.0L Cannula 09/20 0006 98.2 67 20 100/70 94 Room Air 09/20 0000 Nasal 2.0L Cannula Intake & Output 09/20 1600 09/20 0800 09/20 0000 Intake Total 480 100 100 Output Total 700 150 Balance -220 100 -50 Intake, Oral 480 100 100 Output, Urine 700 150 Patient 141.181 kg Weight Physical Exam General Appearance: Alert, Oriented X3, Cooperative, No Acute Distress Skin: No Rashes, No Breakdown HEENT: Atraumatic, PERRLA, EOMI Neck: Supple, No JVD Cardiovascular: Normal S1, Normal S2, irregular Lungs: wheezing at the right side of upper chest Abdomen: Soft, No Tenderness Neurological: Normal Speech Extremities: No Clubbing, No Cyanosis, No Edema Vascular: Normal Pulses, Pulses Symmetrical Assessment/Plan Assessment: Patient is a 85 YO male with past medical history of CAD S/P CABG, aortic stenosis, psoriasis, osteoarthritis, gout, MS,COPD not on home oxygen with chief complaints of shortness of breath and cought with greenish sputum and substernal chest discomfort. CXR : Low lung volume bilaterally with interval development of subtle airspace disease at right lung base, may represent hypoventilatory, atelectatic changes versus subtle developing pneumonia. Followup radiograph to resolution is recommended. Chest x-ray 09/20/2016-does not shows any signs of pneumonia Problem list New onset atrial fibrillation COPD Hyperlipidemia Psoriasis Plan- * We will stop IV heparin drip * We will start patient on tab Eliquis 5 mgs PO twice a day * We will stop injection ceftriaxone and azithromycin * We will continue tab prednisone and taper it rapidly * We will continue aspirin 81 daily * We'll continue tablet Atorvastatin 40 daily * We will continue home medication, calciptreione, triamcinolone for local application * We'll continue tablet lasix 20 mg Daily. * We will continue tablet metoprolol succinate 25 mg by mouth daily * TRC/nebulization * We will get the oxygen to keep SPO2 more than 92% * CODE STATUS-full code * DVT prophylaxis-ALP S/heparin * Diet-heart healthy diet Problem List: 1. New onset atrial flutter 2. Chest pain 3. HLD (hyperlipidemia) 4. HTN (hypertension) 5. Psoriasis 6. COPD (chronic obstructive pulmonary disease) Pain Ratin Pain Location: Not applicable Pain Goal: Remain pain free Pain Plan: Mild Tomorrow's Labs & Rationales: none DVT/Prophylaxis: mechanical, pharmacological KRYSTINA THOMPSON MD 09/20/16 1200: Attending MD Review Statement Attending Statement Attending MD Statement: examined this patient, discuss w/resident/PA/GRAPHICS COORDINATOR, agreed w/resident/PA/GRAPHICS COORDINATOR, reviewed EMR data (avail) Attending Assessment/Plan: Patient still reports SOB and weakness on standing. His cough is persistent but improved, and he is producing thick yellow sputum. Afebrile, stable vitals. HR is now controlled. Plan - Discontinue heparin - Start Eliquis - Continue rate control - Discontinue Ceftriaxone - Continue Azithromycin - Decrease Prednisone to 40mg daily - Continue breathing treatments - Contineu home medications - PT evaluation - Anticipated discharge tomorrow
[2016-09-20 08:13] VITALS: BP 112/70
--- NOTE | 2016-09-20 09:21 | PN- Cardiology ---
Subjective Subjective: Nic Garcia is an 85-year-old man who I first met in 08/2011, referred from [facility] because of aortic stenosis identified on echocardiogram. His echo in 2011 showed a gradient of 55 mg peak and 32 mm of mean. He was followed along and developed shortness of breath in late 2011 which we thought was related to his aortic valve disease. He had cardiac catheterization in 05/2012, which showed severe aortic stenosis and single vessel LAD disease. He was referred to Dr. Dumont who did bioprosthetic aortic valve replacement and LAD graft and he ultimately did well. He had a saphenous vein graft to the LAD. Subsequently Nic has done pretty well. He has been basically asymptomatic from a cardiac standpoint. His echo in 10/2012 showed only a mild gradient across the valve of about 10 mmHg mean with good left ventricular systolic function. We repeated his echocardiogram in April 2016, which now showed moderate aortic stenosis on his bioprosthetic valve with a peak gradient of 46 mmHg and a mean gradient of 22 mmHg. He was also having some ventricular ectopy which was asymptomatic. However he's never had atrial fibrillation previously. The patient was admitted now with respiratory symptoms and was found to be in atrial fibrillation/flutter. He had a previous admission in May 2016 for chest pain which was negative. He was in sinus rhythm on that admission. He is on low-dose metoprolol with a controlled rate. He is also having some PVCs. However, these are asymptomatic. Objective Vital Signs and I&Os Vital Signs Date Time Temp Pulse Resp B/P Pulse O2 O2 Flow FiO2 Ox Delivery Rate 09/20 812 97.7 74 20 112/70 97 Nasal 2.0L Cannula 09/20 0006 98.2 67 20 100/70 94 Room Air 09/20 0000 Nasal 2.0L Cannula 09/19 2131 95 Nasal 2.0L Cannula 09/19 1616 98.6 70 20 106/60 95 Nasal 2.0L Cannula 09/19 1134 98 Nasal 2.0L Cannula 09/19 0942 65 110/62 Intake & Output 09/20 1600 09/20 0800 09/20 0000 09/19 1600 09/19 0800 09/19 0000 Intake Total 100 100 730 100 100 Output Total 150 650 500 900 Balance 100 -50 80 -400 -800 Intake, IV 250 Intake, Oral 100 100 480 100 100 Output, Urine 150 650 500 900 Patient 311 lb 311 lb Weight Physical Exam: He is in no distress sitting in a chair. HEENT exam is normal Chest reveals a few coarse rales in the bases and some very mild expiratory wheezing Heart reveals irregular rhythm with a grade 2 to 3/6 systolic ejection murmur at the base Abdomen is benign Extremities reveal trace edema and chronic stasis skin changes. Current Medications: Current Medications Sig/Lissa Start time Last Medication Dose Route Stop Time Status Admin Acetaminophen 650 MG Q6 PRN 09/18 1330 AC PO Albuterol Sulfate 3 ML Q4P PRN 09/18 2315 AC 09/19 INH 1130 Aspirin Buffered 81 MG DAILY 09/19 1000 AC 09/19 PO 0941 Atorvastatin Calcium 40 MG DAILY 09/19 1000 AC 09/19 PO 0942 Azithromycin 500 MG DAILY@1230 09/19 1230 AC 09/19 Dextrose/Water 250 ML IV 1239 Ceftriaxone Sodium 1,000 MG DAILY@1230 09/19 1230 AC 09/19 IV 1239 Folic Acid 1 MG DAILY 09/19 1000 AC 09/19 PO 0942 Furosemide 20 MG DAILY 09/19 1000 AC 09/19 PO 0942 Heparin Sodium 2,300 UNIT ONCE ONE 09/19 1140 DC 09/19 (Porcine) IV 09/19 1141 1238 Heparin Sodium/ 25,000 UNIT Q24H 09/18 1345 AC 09/20 Dextrose IV 0530 Dextrose/Water 500 ML Metoprolol Succinate 25 MG DAILY 09/19 1000 AC 09/19 PO 0942 Oxycodone HCl 5 MG Q6P PRN 09/18 1330 AC PO Oxycodone/ 2 TAB Q6P PRN 09/18 1330 AC Acetaminophen PO Prednisone 60 MG DAILY 09/19 1000 AC 09/19 PO 0942 Triamcinolone 1 CED TIDPRN PRN 09/19 0130 AC Acetonide TOP Results Last 48 Hrs of Labs/Mics: Laboratory Tests 09/20/16 0635: Sodium Pending, Potassium Pending, Chloride Pending, Carbon Dioxide Pending, Anion Gap Pending, BUN Pending, Creatinine Pending, BUN/Creatinine Ratio Pending , APTT Pending, CBC w Diff Pending, WBC Pending, RBC Pending, Hgb Pending, Hct Pending, MCV Pending, MCH Pending, RDW Pending, Plt Count Pending, MPV Pending, PUBS MCHC Pending 09/19/16 1725: APTT 74 H 09/19/16 0857: APTT 54 H 09/19/16 0742: Anion Gap 5, Estimated GFR > 60, BUN/Creatinine Ratio 21.0, Lactic Acid 0.9, CBC w Diff NO MAN DIFF REQ, RBC 4.28 L, MCV 88.5, MCH 29.0, RDW 14.5, MPV 8.8, Gran % 70.6, Lymphocytes % 17.4 L, Monocytes % 11.1 H, Eosinophils % 0.6, Basophils % 0.3, Absolute Granulocytes 3.8, Absolute Lymphocytes 0.9 L, Absolute Monocytes 0.6, Absolute Eosinophils 0, Absolute Basophils 0, [facility] MCHC 32.8 L 09/18/162044: APTT 71 H 09/18/161814: Troponin I 0.03 09/18/161814: Lactic Acid 3.0 H 09/18/16 1455: Urine Color STRAW, Urine Clarity CLEAR, Urine pH 6.0, Ur Specific [place] <= 1.005, Urine Protein NEG, Urine Ketones NEG, Urine Nitrite NEG, Urine Bilirubin NEG, Urine Urobilinogen 1.0, Ur Leukocyte Esterase TRACE H, Ur Microscopic SEDIMENT EXAMINED, Urine WBC RARE, Ur Epithelial Cells RARE, Urine Hemoglobin NEG, Urine Glucose NEG 09/18/16 1444: Lactic Acid 1.5, Troponin I 0.04 09/18/16 1111: PT 11.5, INR 1.10, APTT 34 09/18/16 1100: Anion Gap 8, Estimated GFR > 60, BUN/Creatinine Ratio 19.0, Glucose 85, Calcium 8.2 L, Total Bilirubin 0.7, AST 35, ALT 44, Alkaline Phosphatase 76, Troponin I 0.04, Qyo-Z-Eihnuyztqgo Pept 4390 H, Total Protein 6.2 L, Albumin 3.5, Globulin 2.7, Albumin/Globulin Ratio 1.3, CBC w Diff NO MAN DIFF REQ, RBC 4.58 L, MCV 86.8, MCH 28.7, RDW 14.6 H, MPV 8.3, Gran % 69.6, Lymphocytes % 17.1 L, Monocytes % 9.2, Eosinophils % 4.0, Basophils % 0.1, Absolute Granulocytes 2.7, Absolute Lymphocytes 0.7 L, Absolute Monocytes 0.4, Absolute Eosinophils 0.2, Absolute Basophils 0, PUBS MCHC 33.1 Assessment/Plan Assessment/Plan Nic presents with probable pneumonia and also was found to have "new onset" atrial fibrillation and ventricular ectopy with controlled response. He is now on IV heparin. He is on oral metoprolol. His rate is within the normal range. I think based on his previous echoes etc. it is unlikely Nic will be able to be gotten back to sinus rhythm. I recommend stopping heparin and starting him on Eliquis 5 mg twice daily. Hopefully we'll be able to take this in addition to his other medications when he goes home. Apparently his niece does pour his meds for him and and we will have to give her instructions regarding this. Continue telemetry? Yes
[2016-09-20 10:01] LABS: ABSOLUTE BASOPHIL COUNT 0 /CUMM (0.0-0.2); ABSOLUTE EOSINOPHIL COUNT 0 /CUMM (0.0-0.7); ABSOLUTE GRANULOCYTE CT 4.7 /CUMM (1.4-6.5); ABSOLUTE LYMPH COUNT 0.8 /CUMM (1.2-3.4); ABSOLUTE MONOCYTE COUNT 0.4 /CUMM (0.10-0.60); BASOPHIL % 0.3 % (0.0-2.0); EOSINOPHIL % 0 % (0-5); GRANULOCYTE % 79.4 % (42.2-75.2); HEMATOCRIT 39.1 % (42-52); MEAN CORPUSCULAR HGB CONC 32.9 G/DL (33.0-37.0); MEAN CORPUSCULAR VOLUME 88.1 FL (80.0-94.0); MEAN PLATELET VOLUME 9.4 FL (7.4-10.4); PLATELET COUNT 116 /CUMM (130-400); RBC DISTRIBUTION WIDTH 14.6 % (11.5-14.5); RED BLOOD CELL CT 4.44 /CUMM (4.70-6.10)
[2016-09-20 10:02] LABS: PTT 65 SEC (25-37)
[2016-09-20 10:11] LABS: PT 11.4 SEC (9.4-12.5)
--- NOTE | 2016-09-20 10:40 | RADIOLOGY REPORT ---
EXAMINATION: XR CHEST CLINICAL INFORMATION: Right lung base pneumonia. Need to confirm. Shortness of breath. COMPARISON: Several prior chest x-rays, most recent of which is dated 09/18/2016. TECHNIQUE: AP semierect sitting and lateral views of the chest were obtained. FINDINGS: The patient is status post median sternotomy and aortic valve replacement. The cardiomediastinal silhouette is enlarged, unchanged. Mitral annular calcifications are noted. No evolving consolidation is seen in the medial right lung base. There are persistent minimal linear opacities, most likely related to subsegmental atelectasis and volume loss. Remainder of lungs clear. No effusion or pneumothorax. Moderate vertebral endplate spurring again seen in mid and lower thoracic spine. IMPRESSION: 1. No evidence of evolving pneumonia. 2. Minimal linear opacities in medial right lung base most consistent with subsegmental atelectasis and volume loss. Clinical correlation requested.
[2016-09-20 15:33] VITALS: BP 122/70
[2016-09-20 23:31] VITALS: BP 120/68
[2016-09-21 08:11] VITALS: BP 126/70
--- NOTE | 2016-09-21 08:19 | PN- Housestaff ---
Subjective Follow-up For: new onset atrial fibrillation Tele-Events Since Last Visit: afib/aflutter HR 72-103 Subjective: seen and examined patient, offers no complaints. Feels well enough to be discharged today. Review of Systems Constitutional: Denies: chills, diaphoresis, fever, malaise, weakness, unexplained weight loss. Cardiovascular: Denies: chest pain, edema, orthopena, palpitations, peripheral edema, syncope. Respiratory: Denies: cough, hemoptysis, orthopnea, short of breath, sputum production, stridor, wheezing. Objective Last 24 Hrs of Vital Signs/I&O Vital Signs Date Time Temp Pulse Resp B/P Pulse O2 O2 Flow FiO2 Ox Delivery Rate 09/21 0822 97.5 62 20 126/70 09/21 0811 97.5 62 20 126/70 96 Nasal 2.0L Cannula 09/21 0800 96 Nasal 2.0L Cannula 09/21 0000 96 Nasal 2.0L Cannula 09/20 2331 98.1 64 20 120/68 97 Nasal Cannula 09/20 2053 97 Nasal 2.0L Cannula 09/20 1600 Nasal 2.0L Cannula 09/20 1533 97.7 72 20 122/70 96 Nasal 2.0L Cannula Intake & Output 09/21 1600 09/21 0800 09/21 0000 Intake Total 600 250 300 Output Total 1600 500 425 Balance -1000 -250 -125 Intake, IV 0 Intake, Oral 600 250 300 Number 0 0 Bowel Movements Output, Urine 1600 500 425 Patient 308 lb Weight Physical Exam General Appearance: Alert, Oriented X3, Cooperative, No Acute Distress Cardiovascular: Normal S1, Normal S2 Lungs: Normal Air Movement, b/l wheeze Extremities: +2 edema Current Medications: Current Medications Sig/Lissa Start time Last Medication Dose Route Stop Time Status Admin Acetaminophen 650 MG Q6 PRN 09/18 1330 AC PO Albuterol Sulfate 3 ML Q4P PRN 09/18 2315 AC 09/20 INH 0925 Apixaban 5 MG BID 09/28 1000 CAN PO Apixaban 5 MG Q12 09/21 1000 DC PO 09/27 2201 Apixaban 5 MG Q12H 09/21 0600 DC PO Apixaban 5 MG Q12H 09/21 0600 AC 09/21 PO 0645 Apixaban 5 MG BID 09/20 1327 DC 09/20 PO 1610 Aspirin Buffered 81 MG DAILY 09/19 1000 AC 09/21 PO 0823 Atorvastatin Calcium 40 MG DAILY 09/19 1000 AC 09/21 PO 0823 Folic Acid 1 MG DAILY 09/19 1000 AC 09/21 PO 0823 Furosemide 20 MG DAILY 09/19 1000 AC 09/21 PO 0823 Metoprolol Succinate 25 MG DAILY 09/19 1000 AC 09/21 PO 0822 Oxycodone HCl 5 MG Q6P PRN 09/18 1330 AC PO Oxycodone/ 2 TAB Q6P PRN 09/18 1330 AC Acetaminophen PO Patient Medication 1 ED .STK-MED ONE 09/21 1348 DC Teaching ED 09/21 1349 Prednisone 40 MG DAILY 09/21 1000 AC 09/21 PO 0822 Triamcinolone 1 CED TIDPRN PRN 09/19 0130 AC Acetonide TOP Last 24 Hrs of Lab/Harsh Results Last 24 Hrs of Labs/Mics: Laboratory Tests 09/20/16 1900: APTT Cancelled Assessment/Plan Assessment: 85 year old gentleman with past medical history of CAD S/P CABG, aortic stenosis , psoriasis, osteoarthritis, gout, MS,COPD not on home oxygen current admission for new onset afib and COPD exacerbation. Clinically improved and saturating well on RA. Problem list New onset atrial fibrillation COPD exacerbation Hyperlipidemia Psoriasis Plan- * on Eliquis 5 mgs PO twice a day, gave 30 day coupon to niece and informed her about starting eliquis and its adverse effects, advised to follow up with his internet marketer within two weeks * continue prednisone taper * We will continue aspirin 81 daily * We'll continue tablet Atorvastatin 40 daily * We will continue home medication, calciptreione, triamcinolone for local application * We'll continue tablet lasix 20 mg Daily. * We will continue tablet metoprolol succinate 25 mg by mouth daily * DVT prophylaxis-ALP S/heparin * Diet-heart healthy diet * discharge to home with home services today. * full code Problem List: 1. Atrial fibrillation 2. COPD (chronic obstructive pulmonary disease) Pain Ratin Pain Location: na Pain Goal: Pain 4 or less Pain Plan: current regimen Tomorrow's Labs & Rationales: none required
[2016-09-21 08:22] VITALS: BP 126/70
[2016-09-21] MEDS ORDERED: ELIQUIS5 M1 PO (09:39)
[2016-09-21] MEDS ORDERED: PREDNISONE20 M1 PO (09:39)
--- NOTE | 2016-09-21 09:46 | Patient Discharge Instructions ---
Discharge Instructions General Discharge Information You were seen/treated for: rapid heart rate, leding to shortness of breath - atrial fibrillation Special Instructions: please follow up with your nail cutter with in a week of discharge. please take medication as advised please follow up with PCP with in a week of discharge Diet Recommended Diet: Heart Healthy Activity Full Activity/No Limits: No (as tolerated) Activity Self Limited: No Acute Coronary Syndrome Inclusion Criteria At DC or during hospital stay patient has or had the following: ACS DIAGNOSIS No Discharge Core Measures Meds if any: Prescribed or Continued at Discharge Meds if any: NOT Prescribed or Continued at Discharge Congestive Heart Failure Inclusion Criteria At DC or during hospital stay patient has or had the following: CHF DIAGNOSIS No Discharge Core Measures Meds if any: Prescribed or Continued at Discharge Meds if any: NOT Prescribed or Continued at Discharge Cerebrovascular accident Inclusion Criteria At DC or during hospital stay patient has or had the following: CVA/TIA Diagnosis No Discharge Core Measures Meds if any: Prescribed or Continued at Discharge Meds if any: NOT Prescribed or Continued at Discharge Venous thromboembolism Inclusion Criteria VTE Diagnosis No VTE Type NONE VTE Confirmed by (Test) NONE Discharge Core Measures - Per Current guidelines, there needs to be overlap - treatment for the first 5 days of Warfarin therapy. - If discharged on Warfarin prior to 5 days of - overlap therapy, the patient will need to be - assessed for post discharge needs including - *Post discharge parental anticoagulation - *Warfarin and/or parental anticoagulation education - *Follow up date to check INR post discharge At least 5 days overlap therapy as Inpatient No Meds if any: Prescribed or Continued at Discharge Note: Overlap Therapy is Warfarin and Anticoagulant Meds if any: NOT Prescribed or Continued at Discharge
--- NOTE | 2016-09-21 09:48 | Discharge Summary ---
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 Vital signs at the time of admission-temperature 90.6, pulse 74, respiratory rate 20, blood pressure 129/93, SPO2 98% on room air. EKG showed-atrial fibrillation with PACs. New onset atrial fibrillation - As the patient presented with chest pain and EKG shows atrial fibrillation. We admitted the patient to telemetry and started on IV heparin drip. Also did serial EKG and troponins. Serial troponins were negative. We also took cardiology consultation and follow the recommendation. After 24 hours. We stopped the IV heparin drip and he started patient on the Eliquis 5mg BID. We discharged with advice to follow-up with the geriatric physical therapist within a week of discharge. COPD acute exacerbation, possible right lower lobe pneumonia Initially, patient was complaining of cough with expectoration and chest x-ray showed possible right lower lobe pneumonia so we started patient on ceftriaxone and azithromycin, and supported with steroid for COPD. Later follow-up chest x- ray was clear, without any evidence of pneumonia. So we stopped antibiotic and continued patient on tapering doses of prednisone. We discharged him with advice to follow-up with PCP within a week. Allergies: Coded Allergies: NO KNOWN ALLERGIES (12/23/15) Disposition Summary Disposition Principal Diagnosis: New onset atrial fibrillation COPD acute exacerbation Additional Diagnosis: Hyperlipidemia Hypertension Moderate mitral stenosis CAD (s/p CABG), COPD Psoriasis Gout Discharge Disposition: home or self care Discharge Instructions General Discharge Information Code Status: Full Code Patient's Diet: Heart healthy diet Patient's Activity: As tolerated Follow-Up Instructions/Appts: please follow up with your geriatric physical therapist with in a week of discharge. please take medication as advised please follow up with PCP with in a week of discharge Medications at Discharge Discharge Medications: Continue taking these medications: Aspirin (Ecotrin) 81 MG TABLET.DR 1 Tablet ORAL DAILY Simvastatin (Simvastatin) 40 MG TABLET 1 Tablet ORAL Every night Comments: Last Taken: 11/29/14 Time: 4 PM Folic Acid (Folic Acid) 1 MG TABLET 1 Milligram ORAL DAILY Comments: Last Taken: 11/30/14 Time: 9 AM FLUTICASONE/SALMETEROL (Advair 250-50 Diskus) 1 DSK DSK 1 PUFF Inhale through mouth TWICE DAILY Qty = 60 Furosemide (Lasix) 20 MG TAB 1 Tablet ORAL DAILY Comments: Last Taken: 11/30/14 Time: 9 AM Albuterol Sulfate (Ventolin Hfa) 18 GM HFA.AER.AD 2 Puff Inhale through mouth EVERY 4-6 HOURS NEEDED as needed for ASTHMA Comments: Last Taken:10/18/16 Time: 9:25A.M Meloxicam (Meloxicam) 15 MG TABLET 1 Tablet ORAL DAILY Qty = 30 Comments: Last Taken:NOT GIVEN THIS ADMISSION Time: Calcipotriene (Calcipotriene) 60 GM CREAM..G. 1 Application On the skin As Directed Qty = 120 Comments: Last Taken:NOT GIVEN THIS ADMISSION Time: Triamcinolone Acetonide (Triamcinolone Acetonide) 15 GM OINT...G. 1 Application On the skin As Directed Qty = 454 Instructions: apply to affected area(s) Comments: Last Taken:NOT GIVEN THIS ADMISSION Time: Hydroxyzine HCl (Hydroxyzine HCl) 25 MG TABLET 1 Tablet ORAL Q8H Qty = 12 Comments: Last Taken:NOT GIVEN THIS ADMISSION Time: Metoprolol Succ XL (Toprol XL) 25 MG TAB 25 Milligram ORAL DAILY Qty = 30 Comments: Last Taken:09/21/16 Time: 8:22A.M Magnesium Oxide (Magnesium Oxide) 400 MG TABLET 400 Milligram ORAL DAILY Qty = 4 Comments: Last Taken:NOT GIVEN THIS ADMISSION Time: Start taking the following new medications: Apixaban (Eliquis) 5 MG TABLET 5 Milligram ORAL Q12H Days = 30 No Refills Comments: Last Taken:09/21/16 Time: 6:45A.M Prednisone (Prednisone) 10 MG TABLET 1 Tablet ORAL TWICE DAILY Qty = 12 No Refills Instructions: On Take 09/21-09/23 3 tablets 09/24-09/25 2 tablets 2/ 1 tablets then stop Copies To: MARCELLA ENGLAND Attending MD Review Statement Documenting Attending: JAY GAO,KRYSTINA
[2016-09-21] MEDS ORDERED: PREDNISONE10 M2 PO (14:20)
== END 2016-09-21 15:00 | disposition home health service (06) | DRG 309 ==
LOC: ENRESERVTM → ENRESERVDT → ERH 09:52 → ERHI 12:22 → ENPENDDIS 12:22 → 1NO 12:22
PROVIDERS: Dermatology; Internal Medicine; Nurse Practitioner Family; Student in an Organized Health Care Education/Training Program; ADMIT Internal Medicine
DX: I48.91 Unspecified atrial fibrillation (principal); J44.1 Chronic obstructive pulmonary disease with (acute) exacerbation; I11.9 Hypertensive heart disease without heart failure; I05.0 Rheumatic mitral stenosis; I35.0 Nonrheumatic aortic (valve) stenosis; I48.92 Unspecified atrial flutter; Z95.2 Presence of prosthetic heart valve; I49.3 Ventricular premature depolarization; R00.8 Other abnormalities of heart beat; E78.5 Hyperlipidemia, unspecified; M81.0 Age-related osteoporosis without current pathological fracture; L40.9 Psoriasis, unspecified; I45.10 Unspecified right bundle-branch block; Z95.1 Presence of aortocoronary bypass graft; M19.90 Unspecified osteoarthritis, unspecified site; M10.9 Gout, unspecified; I25.10 Atherosclerotic heart disease of native coronary artery without angina pectoris
CPT/HCPCS: 1NSP; 36415; 81001; 82436; 87040; 87070; 87086; 93005; 93010; 97110-GO; 97116-GO; 97161-GP; 97530-GO; J0456; J0696; J1644; J3490; J7060

== ENCOUNTER 2016-11-13 15:02 | Emergency (ER) | payer OTHER, MEDICARE ==
[~2016-11-13] VITALS: Ht 182.9 cm; Wt 147.4 kg
[~2016-11-13 15:02] MED LIST changes: +ELIQUIS5 M1 PO; +PREDNISONE10 M2 PO; +PREDNISONE20 M1 PO
--- NOTE | 2016-11-13 16:50 | RADIOLOGY REPORT ---
EXAMINATION: XR KNEE, RIGHT CLINICAL INFORMATION: Right knee pain. Status post fall yesterday. COMPARISON: Right knee done on 10/25/2013. TECHNIQUE: Four views , 5 images of the right knee. FINDINGS: Marked decrease joint space, subchondral sclerosis, osteophyte formations, consistent with moderate to severe osteoarthrosis is present at the medial compartment. Mild to moderate osteoarthrosis is noted at the lateral and patellofemoral compartments. There is no joint effusion present. No significant change. IMPRESSION: Tricompartmental degenerative osteoarthrosis, appears stable since 10/25/2013.
--- NOTE | 2016-11-13 17:03 | ED UPPER/LOWER EXTREMITY COMPL ---
History of Present Illness General Chief Complaint: Lower Extremity Problems Stated Complaint: KNEE PAIN Source: patient Exam Limitations: no limitations Vital Signs & Intake/Output Vital Signs & Intake/Output Vital Signs Date Time Temp Pulse Resp B/P Pulse O2 O2 Flow FiO2 Ox Delivery Rate 11/13 1925 96.0 96 16 125/82 96 Room Air 11/13 1801 Room Air 11/13 1758 96.1 62 18 121/82 96 Room Air 11/13 1527 97.5 74 20 100/65 95 Room Air ED Intake and Output 11/14 0000 11/13 1200 Intake Total Output Total 200 Balance -200 Output, Urine 200 Patient 325 lb Weight Allergies Coded Allergies: No Known Allergies (11/13/16) Reconcile Medications Adalimumab (Humira Pen) (Unknown Strength) PEN.IJ.KIT (Unknown Dose) SC AD PSORIASIS (Reported) Albuterol Sulfate (Ventolin Hfa) 18 GM HFA.AER.AD 2 PUF INH Q4-6 PRN PRN ASTHMA (Reported) Apixaban (Eliquis) 5 MG TABLET 5 MG PO Q12H AF Aspirin (Ecotrin*) 81 MG TABLET.DR 1 TAB PO DAILY HEART/BLOOD (Reported) Calcipotriene 60 GM CREAM..G. 1 CED TOP AD SKIN (Reported) Cyanocobalamin (Vitamin B-12) (Cyanocobalamin Injection) 1,000 MCG/ML VIAL 1 ML IM Q30D SUPPLEMENT (Reported) Fluticasone/Salmeterol (Advair 250-50 Diskus) 250 MCG-50 MCG/DOSE BLST.W.DEV 1 PUF INH BID RESP. (Reported) Folic Acid 1 MG TABLET 1 TAB PO DAILY SUPPLEMENT (Reported) Furosemide 40 MG TABLET 1 TAB PO DAILY DIURETIC (Reported) Magnesium Oxide 400 MG TABLET 400 MG PO DAILY supplement Meloxicam 15 MG TABLET 1 TAB PO DAILY PAIN (Reported) Metoprolol Succinate (Unknown Strength) TAB (Unknown Dose) PO DAILY HEART/BP (Reported) Simvastatin (Simvastatin*) 40 MG TABLET 1 TAB PO QPM CHOLESTEROL (Reported) Triamcinolone Acetonide 15 GM OINT...G. 1 CED TOP AD SKIN (Reported) apply to affected area(s) Triage Note: TRIAGE: PT TO ER WITH NIECE C/C RT KNEE PAIN S/P FALL YESTERDAY. STATES HE WAS TYING HIS SHOES AND FELL ON KNEE. HAS NOT TAKEN ANY OTC PAIN RELIEVERS, STATES "I DON'T LIKE TYLENOL". NIECE STATES HE DOES TAKE TYLENOL PRN PAIN BUT HAS NOT HAD ANY SINCE FALLING. Triage Nurses Notes Reviewed? yes Onset: Abrupt Duration: constant Timing: single episode today Severity: severe Severity Numbers: 7 Pain/Injury Location: Right: Knee. Method of Injury: direct blow, incised HPI: Patient is a 86-year-old male with past medical history of CHF and chronic lower extremity edema, psoriasis and osteo-arthritis who is brought in by ambulance for concerns of mechanical fall in which patient lives in a private residence by himself where he was trying to tie his shoes in a bent over position patient subsequently in a standing position and fell forward landing on the right anterior aspect of his knee resulting in 7/10 localize right knee pain. No medications were administered prior to arrival. Patient usually walks with a cane for fall prevention assistance. Denies any preceding episode of lightheaded sensation or dizziness denies any head strike neck pain back pain ankle or hip pain. (PETER MCKEON) Past History Medical History Any Pertinent Medical History? see below for history Neurological: NONE EENT: PSORIASIS Cardiovascular: CAD, mitral stenosis Respiratory: asthma Gastrointestinal: NONE Hepatic: NONE Renal: NONE Musculoskeletal: gout, OSTEOARTHRITIS Psychiatric: NONE Endocrine: NONE Blood Disorders: NONE Cancer(s): NONE PULLER OUT/Reproductive: NONE Other Medical Hx: Psoriasis History of MRSA: No History of VRE: No History of CDIFF: No Influenza Vaccine: 05/08/16 Surgical History Surgical History: CABG Psychosocial History Who do you live with Patient/Self Services at Home Home Health Aide, Nursing What is your primary language Tajik Family History Family History, If Any: SISTER FH: diabetes mellitus Hx Contributory? No (PETER MCKEON) Review of Systems Review of Systems Constitutional: Reports: no symptoms. EENTM: Reports: no symptoms. Respiratory: Reports: no symptoms. Cardiovascular: Reports: no symptoms. Gastrointestinal/Abdominal: Reports: no symptoms. Genitourinary: Reports: no symptoms. Musculoskeletal: Reports: see HPI, joint pain. Skin: Reports: no symptoms. Neurological/Psychological: Reports: no symptoms. Hematologic/Endocrine: Reports: no symptoms. Immunological: Reports: no symptoms. All Other Systems: Reviewed and Negative (PETER MCKEON) Physical Exam Physical Exam General Appearance: no apparent distress, alert, comfortable Neurologic/Tendon: normal sensation, normal motor functions, normal tendon functions, responds to pain, no evidence tendon injury, no pulse deficit Skin: intact, normal color, warm/dry Comments: Well-developed well-nourished person in no acute distress HEENT: Normal EENT exam, Neck: Supple, no lymphadenopathy, normal range of motion without pain or tenderness Back: Nontender, no CVA tenderness. Cardiovascular: Regular rate and rhythms no murmurs rubs or gallops, normal JVP Respiratory: Chest nontender. No respiratory distress.breath sounds clear to auscultation bilaterally Abdomen: Soft, nontender nondistended, no appreciable organomegaly. Normal bowel sounds. No ascites Extremity: No edema, no calf tenderness to palpation, normal and equal pulses. Right hip nontender full active range of motion straight leg raise performed Right knee normal inspection full active range of motion anterior joint line point tenderness negative valgus stress test negative varus stress test negative anterior drawer test negative posterior drawer test Right ankle nontender full active range of motion Right lower extremity dermatomes intact pedal pulse +2 Neuro: Alert oriented x3, motor sensory normal, Skin: No appreciable rash on exposed skin, skin is warm and dry. Psych: Mood and affect is normal, memory and judgment is normal. (AGUILAR IZQUIERDO,PETER) Progress Differential Diagnosis: arterial insufficiency, compartment syndrome, contusion, dislocation, DVT, fracture, gout, septic arthritis, sprain, tendon injury Plan of Care: Patient had no osseous injuries noted on x-ray Patient declined pain medications when offered. Patient noted to be supervised with a walker showing normal steady gait in minimal assistance was needed using the walker Discussed patient with case management who will expand home health services I gave prescription of assisted walker to family members. I stressed importance of fall prevention with family member and patient Discussed disposition and plan with Dr. LAMBERT who agrees Diagnostic Imaging: Viewed by Me: Radiology Read. Radiology Impression: no fracture Comments: PATIENT: LIZ PARSON PRESENT AGE: 86 PATIENT ACCOUNT NO: [id number] : 32 LOCATION: [facility] ORDERING PHYSICIAN: PETER IZQUIERDO SERVICE DATE: 11/13/16-7003 EXAM TYPE: RAD - XRY-KNEE COMPLETE RIGHT EXAMINATION: XR KNEE, RIGHT CLINICAL INFORMATION: Right knee pain. Status post fall yesterday. COMPARISON: Right knee done on 10/25/2013. TECHNIQUE: Four views , 5 images of the right knee. FINDINGS: Marked decrease joint space, subchondral sclerosis, osteophyte formations, consistent with moderate to severe osteoarthrosis is present at the medial compartment. Mild to moderate osteoarthrosis is noted at the lateral and patellofemoral compartments. There is no joint effusion present. No significant change. IMPRESSION: Tricompartmental degenerative osteoarthrosis, appears stable since 10/25/2013. DICTATED BY: GERALD TAMEZ MD DATE/TIME DICTATED:11/13/161616 (PETER MCKEON) Departure Departure Disposition: HOME OR SELF CARE Condition: Stable Clinical Impression Primary Impression: Right knee pain Secondary Impressions: Fall Referrals: SEYMOUR GAO,MARCELLA REA (PCP/Family) Additional Instructions: As discussed please picker and packer the assisted walker prescription at a medical office manager [facility] AND begin to use at all times for fall prevention. YOU will also be evaluated and receive a phone call for expansion of home health services. Begin [id number] ibuprofen and/or Tylenol for pain. If no better in one week follow-up with orthopedic Dr. Richard. Continue all medications as directed Departure Forms: Customer Survey General Discharge Information (PETER MCKEON) PA/CLINICAL ACCOUNT LIAISON Co-Sign Statement Statement: ED Attending supervision documentation- [X] I saw and evaluated the patient. I have also reviewed all the pertinent lab results and diagnostic results. I agree with the findings and the plan of care as documented in the PA's/CLINICAL ACCOUNT LIAISON's documentation. [X] I have reviewed the ED Record and agree with the PA's/CLINICAL ACCOUNT LIAISON's documentation. [] Additions or exceptions (if any) to the PAs/CLINICAL ACCOUNT LIAISON's note and plan are summarized below: [] (PETRA GAO,MILTON)
[2016-11-13] MEDS ORDERED: FUROSEMIDE40 M1 PO (18:29)
[2016-11-13] MEDS ORDERED: METOPROLOL SUCC25 M1 PO (18:30)
[2016-11-13] MEDS ORDERED: CYANOCOBAL1000 MCG/2 IM (18:31)
[2016-11-13] MEDS ORDERED: HUMIRA PEN40 MG/0.8 SC (18:31)
[2016-11-13 19:25] VITALS: BP 125/82
== END 2016-11-13 19:40 ==
LOC: ERH 15:02
DX: M25.561 Pain in right knee (principal); W19.XXXA Unspecified fall, initial encounter; Y93.9 Activity, unspecified; Y92.009 Unspecified place in unspecified non-institutional (private) residence as the place of occurrence of the external cause
CPT/HCPCS: 73562-RT

== ENCOUNTER 2017-11-20 11:56 | Inpatient (IN) | payer OTHER, MEDICARE ==
[~2017-11-20] VITALS: Ht 182.9 cm; Wt 114.0 kg
[~2017-11-20 11:56] MED LIST changes: +CLOTRIMAZOLE15 GM TOP; +CYANOCOBAL1000 MCG/2 IM; +ERYTHROMYCIN1 GM OPH; +FUROSEMIDE40 M1 PO; +HUMIRA PEN40 MG/0.8 SC; +MACROBID 100 M100 MG PO; +METOPROLOL SUCC50 M2 PO; +SERTRALINE HCL50 MG PO
[2017-11-20 12:45] LABS: ABSOLUTE BASOPHIL COUNT 0 /CUMM (0.0-0.2); ABSOLUTE EOSINOPHIL COUNT 0 /CUMM (0.0-0.7); ABSOLUTE GRANULOCYTE CT 5.7 /CUMM (1.4-6.5); ABSOLUTE LYMPH COUNT 0.9 /CUMM (1.2-3.4); BASOPHIL % 0.4 % (0.0-2.0); EOSINOPHIL % 0.3 % (0-5); GRANULOCYTE % 74.4 % (42.2-75.2); HEMATOCRIT 41.5 % (42-52); MEAN CORPUSCULAR HGB CONC 32.6 G/DL (33.0-37.0); MEAN PLATELET VOLUME 8.5 FL (7.4-10.4); PLATELET COUNT 166 /CUMM (130-400); RBC DISTRIBUTION WIDTH 15.6 % (11.5-14.5); RED BLOOD CELL CT 4.67 /CUMM (4.70-6.10); WHITE BLOOD CELL COUNT 7.6 /CUMM (4.8-10.8)
[2017-11-20 12:54] LABS: PT 18.9 SEC (9.4-12.5); PTT 39 SEC (25-37)
--- NOTE | 2017-11-20 13:24 | ED MVC/FALL/TRAUMA COMPLAINT ---
History of Present Illness General Chief Complaint: Fall Stated Complaint: BIBA FOR FALL Source: patient, family, EMS Exam Limitations: poor historian Vital Signs & Intake/Output Vital Signs & Intake/Output Vital Signs Date Time Temp Pulse Resp B/P B/P Pulse O2 O2 Flow FiO2 Mean Ox Delivery Rate 11/20 1408 98.2 86 16 102/66 96 Room Air 11/20 1242 98 Room Air 11/20 1202 97.7 93 16 121/87 97 Room Air Allergies Coded Allergies: No Known Allergies (06/23/17) Reconcile Medications Adalimumab (Humira Pen) (Unknown Strength) PEN.IJ.KIT (Unknown Dose) SC AD PSORIASIS (Reported) Albuterol Sulfate (Ventolin Hfa) 18 GM HFA.AER.AD 2 PUF INH Q4-6 PRN PRN ASTHMA (Reported) Apixaban (Eliquis) 5 MG TABLET 5 MG PO Q12H AF Aspirin (Ecotrin*) 81 MG TABLET.DR 1 TAB PO DAILY HEART/BLOOD (Reported) Clotrimazole 1 % CREAM..G. 1 CED TOP QAMPM rash apply to affected area(s) Cyanocobalamin (Vitamin B-12) (Cyanocobalamin Injection) 1,000 MCG/ML VIAL 1 ML IM Q30D SUPPLEMENT (Reported) Erythromycin Base (Erythromycin) 5 MG/GRAM (0.5 %) OINT...G. 1 CED OPH 4XDP blepharitis apply 1 cm ribbon into the lower conjunctival sac Fluticasone/Salmeterol (Advair 250-50 Diskus) 250 MCG-50 MCG/DOSE BLST.W.DEV 1 PUF INH BID RESP. (Reported) Folic Acid 1 MG TABLET 1 TAB PO DAILY SUPPLEMENT (Reported) Furosemide 40 MG TABLET 1 TAB PO DAILY DIURETIC (Reported) Magnesium Oxide 400 MG TABLET 400 MG PO DAILY supplement Meloxicam 15 MG TABLET 1 TAB PO DAILY PAIN (Reported) Metoprolol Succinate 50 MG TAB.ER.24H 1 TAB PO DAILY HEART (Reported) Nitrofurantoin Monohyd/M-Cryst (Macrobid 100 MG Capsule) 100 MG CAPSULE 1 CAP PO BID uti with food Sertraline HCl 50 MG TABLET 1 TAB PO DAILY DEPRESSION (Reported) Simvastatin (Simvastatin*) 40 MG TABLET 1 TAB PO QPM CHOLESTEROL (Reported) Triage Note: PT TO ER BIBA: C/C RIGHT KNEE PAIN S/P UNWITNESSED FALL TODAY. HX OF AFIB TAKES COUMADIN PER DAUGHTER. PT'S DAUGHTER STATES PT FELL IN BATHROOM ONTO KNEE, WHEN CAREGIVER FOUND HIM HE WAS SITTING ON THE COUCH, UNABLE TO STATE HOW HE GOT THERE. WALKS WITH WALKER AT BASELINE. PT DENIES HEADSTRIKE. AOX2 (PERSON AND LOCATION). EVIDENCE OF BRUISING TO RIGHT HUMERUS AND LEFT SHOULDER ?OLD, PER DAUGHTER HAS HAD 2 RECENT FALLS AT [facility]. PAIN WITH PALATION TO RLE, LLE NOTED TO BE COLD FROM CALF TO TOES WITH DELAYED CAP REFILL. LOAN IZQUIERDO AWARE. Triage Nurses Notes Reviewed? yes Onset: Abrupt Duration: day(s): (1), constant, continues in ED Timing: recent history Severity: moderate, severe Injuries/Fall Location: lower extremity Method of Injury: fall Loss of Consciousness: unsure No Modifying Factors: none HPI: 87-year-old male past medical history of atrial fibrillation, mitral stenosis, coronary artery disease, osteoarthritis presents for evaluation after a fall. Patient's daughter reports that patient was found by his caregiver sitting on the couch this morning and patient stated that he fell last night. Patient reports that he thinks that he became dizzy lightheaded and fell onto his knees. He denies any head strike he denies loss of consciousness. No changes in vision or vomiting. He does take Coumadin. Patient states he then crawled to the couch. He is unsure exactly how long he was on the ground or when exactly the fall happened. According to the daughter he is usually able to walk around with a walker and lives by himself. Daughter reports that his mental status is at baseline currently. He is alert and oriented 2. Patient denies any chest pain or shortness of breath before the fall. He has fallen recently according to the daughter causing injuries to the left shoulder and left elbow. (Loan Foy) Past History Travel History Traveled to [place] past 21 day No Medical History Any Pertinent Medical History? see below for history Neurological: NONE EENT: PSORIASIS Cardiovascular: AFIB, CAD, mitral stenosis Respiratory: asthma Gastrointestinal: NONE Hepatic: NONE Renal: NONE Musculoskeletal: gout, OSTEOARTHRITIS Psychiatric: NONE Endocrine: NONE Blood Disorders: NONE Cancer(s): NONE STOPE MINER/Reproductive: NONE Other Medical Hx: Psoriasis History of MRSA: No History of VRE: No History of CDIFF: No Surgical History Surgical History: CABG Psychosocial History Who do you live with Patient/Self Services at Home Home Health Aide, Nursing What is your primary language Kazakh Tobacco Use: Never used Family History Family History, If Any: SISTER FH: diabetes mellitus Hx Contributory? No (Loan Foy) Review of Systems Review of Systems Constitutional: Reports: no symptoms. Eyes: Reports: no symptoms. Ears, Nose, Throat, Mouth: Reports: no symptoms. Respiratory: Reports: no symptoms. Cardiovascular: Reports: no symptoms. Gastrointestinal/Abdominal: Reports: no symptoms. Genitourinary: Reports: no symptoms. Musculoskeletal: Reports: see HPI, joint pain, muscle pain, muscle stiffness. Skin: Reports: no symptoms. Neurological/Psychological: Reports: no symptoms. All Other Systems: Reviewed and Negative (Loan Foy) Physical Exam Physical Exam General Appearance: well developed/nourished, no apparent distress, alert, awake Head: atraumatic, normal appearance, no scalp hematomas lacerations or abrasions Eyes: Bilateral: normal appearance, PERRL, EOMI, other (BILATERAL PTOSIS). Ears, Nose, Throat, Mouth: hearing grossly normal, moist mucous membrane, Tympanic normal Neck: normal inspection, supple, full range of motion, no midline tenderness Respiratory: normal breath sounds, chest non-tender, no respiratory distress, lungs clear Cardiovascular: regular rate/rhythm Peripheral Pulses: 2+ radial (R), 2+ radial (L), 2+ femoral (R), 2+ femoral (L), 1+ tibialis posterior (R), 0 tibialis posterior (L), 1+ dorsalis pedis (R), 0 dorsalis pedis (L) Gastrointestinal: normal bowel sounds, soft, no organomegaly, tenderness ( BILATERAL LOWER ABDOMEN) Back: normal inspection, normal range of motion, no vertebral tenderness Extremities: range of motion of the bilateral lower extremities is reduced due to pain. There is mild bruising and abrasions to bilateral knees. Tenderness to palpation of the bilateral knees. Patient is moving the bilateral ankles and feet without difficulty. He does have diffuse tenderness of the bilateral feet. Neurologic/Psych: no motor/sensory deficits, awake, alert, alert and oriented to person and place only Skin: intact, normal color, warm/dry Comments: There is a palpable right sided dorsalis pedis pulse. The left lower extremity dorsalis pedis pulse is not operable by DoppleR. The left posterior tibialis pulse is palpable by Doppler. Patient has intact sensation of the bilateral lower extremities. The left lower extremity is cold from the knee down. There is no change in skin tone. CAP Refill 3 or 4 seconds. Core Measures ACS in differential dx? No CVA/TIA Diagnosis No Sepsis Present: No Sepsis Focused Exam Completed? No (Tyron IZQUIERDO,Loan) Progress Differential Diagnosis: aoritic dissection, abd injury, C/T/L spine injury, ext injury, ICH, pelvis injury, spinal cord injury, DVT, peripheral vascular disease Diagnostic Imaging: Viewed by Me: CT Scan. Discussed w/RAD: CT Scan. Radiology Impression: PATIENT: LIZ PARSON PRESENT AGE: 87 PATIENT ACCOUNT NO: [id number] : 32 LOCATION: [facility] ORDERING PHYSICIAN: Loan IZQUIERDO SERVICE DATE: 11/20/17-1221 EXAM TYPE: CAT - CT ABD & PELVIS W/O IV CONTRAS; CT CHEST WO IV CONTRAST EXAMINATION: CT CHEST, ABDOMEN AND PELVIS WITHOUT CONTRAST CLINICAL INFORMATION: 87-year-old male, with unwitnessed fall. Patient is on Coumadin. COMPARISON: None. TECHNIQUE: Multidetector volumetric imaging was performed from the thoracic inlet through the pubic symphysis without administration of any contrast. FINDINGS: The evaluation is technically limited due to lack of intravenous contrast. VISUALIZED NECK: Unremarkable. LUNGS: There is a linear 2 to 3 mm opacity noted at left upper lobe anteriorly (see the hernandez images), may represent tiny atelectatic change versus nonspecific nodule. The remainder of the lungs wells otherwise appear clear. Mild hypoventilatory changes are noted at both lung bases. The tracheobronchial tree appeared patent. MEDIASTINUM: Significant atherosclerotic disease is noted within the aorta and its branches including mitral valve annular and aortic valve calcifications. Postoperative changes of sternotomy and CABG is noted. There is cardiomegaly present with predominant enlargement of the left atrium and left ventricle. PLEURA: There is no pleural effusion. No pleural mass or thickening. AXILLA: No lymphadenopathy LIVER, GALLBLADDER, BILIARY TREE: Unremarkable. PANCREAS: Unremarkable. SPLEEN: Unremarkable. ADRENAL GLANDS AND KIDNEYS: Both adrenal glands are unremarkable. There are multiple right renal cortical as well as extrahepatic hypodensities identified. Specifically, at the superior pole of the right kidney, there is a 3.2 cm cortical hypodensity present with Hounsfield value of 33. A well- circumscribed oval-shaped hypodense mass is noted at superior medial aspect of the right kidney likely represent an exophytic mass, measures 3.3 cm with Hounsfield value of 27. The largest bilobed mass is seen near the inferior pole, measures 5.4 cm at its maximum anteroposterior dimension with Hounsfield value varying between 15-22. These are not optimally characterized however likely represent minimally complicated cysts. Within the left kidney, there is an exophytic pericapsular hypodensity present measures 1.8 cm at its maximum dimension with Hounsfield value of 32, may represent minimally complicated cyst. Nonemergent follow-up ultrasound of both kidneys is recommended for further clarification. URETERS AND BLADDER: Both ureters appear decompressed. The urinary bladder is unremarkable. BOWEL LOOPS: Significant fecal residual is noted within the rectum and sigmoid colon. The appendix is visualized, appear unremarkable. The small bowel loops are decompressed. There is a small sliding hiatal hernia present. LYMPHOVASCULAR STRUCTURES: Diffuse atherosclerotic disease is noted within the aorta and its branches without aneurysm formation. There are no pathologically enlarged retroperitoneal, mesenteric, pelvic and/or inguinal, groin lymphadenopathy seen. PELVIS: There is no free fluid and/or free air present. There is no pelvic mass seen. BONES: No suspicious lytic or sclerotic abnormalities seen. There is no CT evidence of any compression fracture identified within the thoracic and lumbosacral spine. Multilevel moderate degenerative spondylosis however is noted throughout the entire visualized thoracic and lumbosacral spine. Specifically, there is no CT evidence of any intrathoracic, intra-abdominal and/or intrapelvic hematoma identified. IMPRESSION: 1. No acute intrathoracic, intra-abdominal and/or intrapelvic pathology is identified on this nonenhanced study. Specifically, no CT evidence of any hematoma identified within the chest abdomen and pelvis. 2. Incidental note is made of a tiny 2 to 3 mm linear opacity within the left upper lobe of the lung, may represent atelectatic changes versus tiny nodule. 3. Multiple right and solitary left renal focal abnormalities are identified, as described above, not optimally characterized. Follow-up nonemergent bilateral renal ultrasound is recommended for further clarification. According to the UPDATED 2017 Fleischner Society recommendations, the advised follow-up imaging for solid nodules < 6 mm is: LOW RISK PATIENT: No routine follow-up. HIGH RISK PATIENT: Optional CT at 12 months. DICTATED BY: Elliott Bailey MD DATE/TIME DICTATED:1407 BULB BRANDER:JOAQUIN DATE/TIME TRANSCRIBED:11/20/171407 CONFIDENTIAL, DO NOT COPY WITHOUT APPROPRIATE AUTHORIZATION. <Electronically signed in Other Vendor System> SIGNED BY: Elliott Bailey MD 11/20/17 1530 Initial ED EKG: AFIB (RATE 95), LBBB (Tyron IZQUIERDO,Loan) Plan of Care: Orders Procedure Date/time Status Heart Healthy Diet 11/21 B Active Patient Data 11/20 1642 Active Misc Message 11/20 1627 Active ED Holding Orders 11/20 1627 Active Admit to inpatient 11/20 1627 Active Vital Signs 11/20 1627 Active Code Status 11/20 1627 Active RAPID VIRAL INFLUENZA A 11/20 1624 Active LACTIC ACID 11/20 1521 Active US-DUPLEX SCAN LOWER EXT ARTER 11/20 1433 Active PARTIAL THROMBOPLASTIN TIME 11/20 1222 Complete PROTHROMBIN TIME 11/20 1222 Complete EKG 11/20 1222 Active URINALYSIS 11/20 1221 Complete TROPONIN LEVEL 11/20 1221 Complete LACTIC ACID 11/20 1221 Complete COMPREHENSIVE METABOLIC PANEL 11/20 1221 Complete CREATINE PHOSPHOKINASE 11/20 1221 Complete CBC WITHOUT DIFFERENTIAL 11/20 1221 Complete Laboratory Tests 11/20/17 1557: Lactic Acid Pending 11/20/17 1325: Urinalysis LIGHT H, Urine Color YEL, Urine Clarity CLEAR, Urine pH 6.0, Ur Specific [place] 1.025, Urine Protein TRACE H, Urine Ketones TRACE H, Urine Nitrite NEG, Urine Bilirubin NEG, Urine Urobilinogen 0.2, Ur Leukocyte Esterase NEG, Ur Microscopic SEDIMENT EXAMINED, Urine RBC 1-3, Urine WBC RARE, Ur Epithelial Cells MOD H, Urine Bacteria RARE H, Urine Mucus MOD H, Urine Hemoglobin NEG, Urine Glucose NEG 11/20/17 1237: Anion Gap 12, Estimated GFR > 60, BUN/Creatinine Ratio 31.1 H, Glucose 118 H, Lactic Acid 2.2 H, Calcium 9.1, Total Bilirubin 1.4 H, AST 29, ALT 22, Alkaline Phosphatase 82, Creatine Kinase 213 H, Troponin I 0.04, Total Protein 7.4, Albumin 4.2, Globulin 3.2, Albumin/Globulin Ratio 1.3, PT 18.9 H, INR 1.72 H, APTT 39 H, CBC w Diff NO MAN DIFF REQ, RBC 4.67 L, MCV 89.0, MCH 29.0, MCHC 32.6 L, RDW 15.6 H, MPV 8.5, Gran % 74.4, Lymphocytes % 11.7 L, Monocytes % 13.2 H, Eosinophils % 0.3, Basophils % 0.4, Absolute Granulocytes 5.7, Absolute Lymphocytes 0.9 L, Absolute Monocytes 1.0 H, Absolute Eosinophils 0, Absolute Basophils 0 Microbiology 11/20 1624 NASOPHARYN: Influenza Virus A & B Rapid Smear - ORD Patient seen and evaluated. He was brought in for evaluation after a possible fall. It is unclear if this was a mechanical fall versus a possible syncopal episode. Patient does report feeling dizzy and lightheaded before the fall. We 'll treat this as a syncopal episode. Additionally patient's left lower extremity is cold to touch from the knee down. There are no palpable pulses. The left posterior tibial pulse was found by Doppler. No skin color changes. Ultrasounds of the venous and arterial systems ordered. A CT scan of the head neck chest and pelvis was ordered to evaluate for trauma considering patient is on Coumadin with an unwitnessed fall. he'll monitored on telemetry. Blood work does not show any acute changes. No signs of infection. Patient has no chest pain. EKG appears similar to previous. Initial troponin is negative. No signs of trauma on CT scans. Venous ultrasound negative for DVT. Preliminary report on arterial ultrasound does not show any significant peripheral vascular disease in the left lower extremity. On reevaluation the left lower extremity is now warm to touch. X-rays of the knees are negative for fracture. Patient is still feeling very weak and is unable to ambulate. He is unable to get out of bed. He usually is able to walk with a walker. Additionally he needs further evaluation and possible syncopal episode. Patient will be admitted to the hospital for further evaluation and treatment. He'll require telemetry monitoring, serial labs, EKG, cardiology, physical therapy, case management, echocardiogram, case discussed with Dr. Martínez he agrees patient admitted to the hospital. (Tyron IZQUIERDO,Loan) (Vignesh Martínez MD) Departure Departure Disposition: STILL A PATIENT Condition: Stable Clinical Impression Primary Impression: Weakness Secondary Impressions: Syncope and collapse Referrals: Kat Alvarado APRN (PCP/Family) Departure Forms: Customer Survey General Discharge Information Admission Note Spoke With: Lela Cowart MD Documentation of Exam: Documentation of any treatments & extenuating circumstances including Concerns Regarding Discharge (functional status, medication knowledge or non-compliance, living conditions, etc.) that warrant an admission rather than observation: Patient had a questionable syncopal episode during a fall last night. He is currently unable to ambulate he usually walks and lives at home by himself. [ Telemetry, cardiology, echocardiogram, serial labs, serial EKGs, physical therapy, case management] (Loan Foy) PA/CARDIAC RN Co-Sign Statement Statement: ED Attending supervision documentation- [X] I saw and evaluated the patient. I have also reviewed all the pertinent lab results and diagnostic results. I agree with the findings and the plan of care as documented in the PA's/CARDIAC RN's documentation. Patient presents for evaluation of injury sustained status post fall sometime overnight. Physical examination reveals tenderness of the right lower extremity and coolness of the left leg compared to the right. There is also a decreased dorsalis pedis pulses on the left compared to the right. Aside from this however the patient's sensation remains intact and he wiggles his toes well. Capillary refill is delayed at 3-4 seconds. [] I have reviewed the ED Record and agree with the PA's/CARDIAC RN's documentation. [] Additions or exceptions (if any) to the PAs/CARDIAC RN's note and plan are summarized below: [] (Tanya GAO,Vignesh Rios)
--- NOTE | 2017-11-20 14:29 | CT SCAN REPORT ---
EXAMINATION: CT HEAD WITHOUT CONTRAST CT OF THE CERVICAL SPINE WITHOUT CONTRAST CLINICAL INFORMATION: 87-year-old male with unwitnessed fall. Patient is on Coumadin. COMPARISON: CT of the head and cervical spine done on 09/10/2015. TECHNIQUE: Noncontrast CT scan of the head and cervical spine, using standard protocol. Multiplanar reconstructed images are obtained. Multiplanar reconstructed images are also obtained. FINDINGS: CT OF THE HEAD: Age-appropriate moderate diffuse cortical atrophy is noted, unchanged since 09/10/2015. Mild chronic microvascular deep white matter ischemic changes are also present, unchanged. Specifically, no evidence of intra-axial mass, mass effect, extra-axial fluid collection, midline shift, acute intraparenchymal hemorrhage and/or acute infarction present. Both orbital globes, extraocular muscles, optic nerves appear bilaterally symmetric and are unremarkable. The bilateral mastoid air cells appear unremarkable. CT OF THE CERVICAL SPINE: Nonspecific straightening of the cervical spine is noted with underlying significant facet degenerative arthritic changes throughout the entire cervical spine (left greater than right). Moderate to severe multilevel degenerative spondylosis is also noted at C4-C5, C5-C6, C6-C7 and mild degenerative spondylosis within the remainder of the cervical spine. The C1-C2 alignment is intact. There is no prespinal soft tissue hematoma present. Both lung apices are clear. Incidental note is made of extensive atherosclerotic disease within the coronary arterial tree bilaterally, unchanged since prior study. No significant change since prior study dated 09/10/2015. IMPRESSION: 1. No acute intracranial pathology. 2. No CT evidence of any acute fracture no subluxation or dislocation or prespinal soft tissue hematoma present at the cervical spine. 3. No significant change since most recent prior CT of the head and cervical spine dated 09/10/2015. Specifically, no CT evidence of any acute intracranial hemorrhage is seen.
--- NOTE | 2017-11-20 14:45 | RADIOLOGY REPORT ---
EXAMINATION: XR KNEES, BILATERAL CLINICAL INFORMATION: Fall with bilateral knee pain COMPARISON: 11/13/2016 right knee radiograph and 01/10/2015 left knee radiograph TECHNIQUE: 4 views of each knee obtained. FINDINGS: Right knee: Moderate to large knee effusion. Moderate chronic medial compartment narrowing with tricompartmental osteophyte formation and chronic superior subluxation of the patella. No acute fracture or dislocation is seen. There is moderate soft tissue swelling. Vascular calcifications are present. Left knee: Moderate knee joint effusion. Severe chronic medial compartment narrowing, with tricompartmental degenerative changes and superior patellar subluxation, chronic. No acute fracture or acute dislocation is seen. There is soft tissue swelling and vascular calcification seen. IMPRESSION: Bilateral knee arthritis most notable in the medial compartments, left worse than right. No acute fracture or dislocation is seen. There are bilateral joint effusions and soft tissue swelling.
--- NOTE | 2017-11-20 15:26 | ULTRASOUND REPORT ---
EXAMINATION: US TRIPLEX OF LOWER EXTREMITIES, BILATERAL CLINICAL INFORMATION: Bilateral lower leg pain and swelling. Suspected DVT. COMPARISON: None TECHNIQUE: Color-flow triplex imaging with spectral analysis and compression Doppler were performed on the lower extremities. FINDINGS: Respiratory variation, normal compression and augmented flow are noted throughout the lower extremities. The visualized common femoral vein, superficial femoral vein, profunda femoral vein, popliteal vein and midcalf peroneal and posterior tibial venous segments show no evidence of deep venous thrombosis. Please note that the study is limited by patient body habitus and mobility; the right popliteal fossa was not evaluated. There is no Lucas's cyst. IMPRESSION: Normal triplex scan without evidence of deep venous thrombosis involving the lower extremities. The study is limited by patient body habitus and limited mobility. The right popliteal fossa is not evaluated. If there is a strong clinical concern regarding leg DVT, recommend follow-up study in 5-7 days time.
--- NOTE | 2017-11-20 15:30 | CT SCAN REPORT ---
EXAMINATION: CT CHEST, ABDOMEN AND PELVIS WITHOUT CONTRAST CLINICAL INFORMATION: 87-year-old male, with unwitnessed fall. Patient is on Coumadin. COMPARISON: None. TECHNIQUE: Multidetector volumetric imaging was performed from the thoracic inlet through the pubic symphysis without administration of any contrast. FINDINGS: The evaluation is technically limited due to lack of intravenous contrast. VISUALIZED NECK: Unremarkable. LUNGS: There is a linear 2 to 3 mm opacity noted at left upper lobe anteriorly (see the hernandez images), may represent tiny atelectatic change versus nonspecific nodule. The remainder of the lungs wells otherwise appear clear. Mild hypoventilatory changes are noted at both lung bases. The tracheobronchial tree appeared patent. MEDIASTINUM: Significant atherosclerotic disease is noted within the aorta and its branches including mitral valve annular and aortic valve calcifications. Postoperative changes of sternotomy and CABG is noted. There is cardiomegaly present with predominant enlargement of the left atrium and left ventricle. PLEURA: There is no pleural effusion. No pleural mass or thickening. AXILLA: No lymphadenopathy LIVER, GALLBLADDER, BILIARY TREE: Unremarkable. PANCREAS: Unremarkable. SPLEEN: Unremarkable. ADRENAL GLANDS AND KIDNEYS: Both adrenal glands are unremarkable. There are multiple right renal cortical as well as extrahepatic hypodensities identified. Specifically, at the superior pole of the right kidney, there is a 3.2 cm cortical hypodensity present with Hounsfield value of 33. A well-circumscribed oval-shaped hypodense mass is noted at superior medial aspect of the right kidney likely represent an exophytic mass, measures 3.3 cm with Hounsfield value of 27. The largest bilobed mass is seen near the inferior pole, measures 5.4 cm at its maximum anteroposterior dimension with Hounsfield value varying between 15-22. These are not optimally characterized however likely represent minimally complicated cysts. Within the left kidney, there is an exophytic pericapsular hypodensity present measures 1.8 cm at its maximum dimension with Hounsfield value of 32, may represent minimally complicated cyst. Nonemergent follow-up ultrasound of both kidneys is recommended for further clarification. URETERS AND BLADDER: Both ureters appear decompressed. The urinary bladder is unremarkable. BOWEL LOOPS: Significant fecal residual is noted within the rectum and sigmoid colon. The appendix is visualized, appear unremarkable. The small bowel loops are decompressed. There is a small sliding hiatal hernia present. LYMPHOVASCULAR STRUCTURES: Diffuse atherosclerotic disease is noted within the aorta and its branches without aneurysm formation. There are no pathologically enlarged retroperitoneal, mesenteric, pelvic and/or inguinal, groin lymphadenopathy seen. PELVIS: There is no free fluid and/or free air present. There is no pelvic mass seen. BONES: No suspicious lytic or sclerotic abnormalities seen. There is no CT evidence of any compression fracture identified within the thoracic and lumbosacral spine. Multilevel moderate degenerative spondylosis however is noted throughout the entire visualized thoracic and lumbosacral spine. Specifically, there is no CT evidence of any intrathoracic, intra-abdominal and/or intrapelvic hematoma identified. IMPRESSION: 1. No acute intrathoracic, intra-abdominal and/or intrapelvic pathology is identified on this nonenhanced study. Specifically, no CT evidence of any hematoma identified within the chest abdomen and pelvis. 2. Incidental note is made of a tiny 2 to 3 mm linear opacity within the left upper lobe of the lung, may represent atelectatic changes versus tiny nodule. 3. Multiple right and solitary left renal focal abnormalities are identified, as described above, not optimally characterized. Follow-up nonemergent bilateral renal ultrasound is recommended for further clarification. According to the UPDATED 2017 Fleischner Society recommendations, the advised follow-up imaging for solid nodules < 6 mm is: LOW RISK PATIENT: No routine follow-up. HIGH RISK PATIENT: Optional CT at 12 months.
--- NOTE | 2017-11-20 16:38 | History & Physical ---
General Information and HPI Allergies/Medications Allergies: Coded Allergies: No Known Allergies (06/23/17) Home Med list Adalimumab (Humira Pen) (Unknown Strength) PEN.IJ.KIT (Unknown Dose) SC AD PSORIASIS (Reported) Albuterol Sulfate (Ventolin Hfa) 18 GM HFA.AER.AD 2 PUF INH Q4-6 PRN PRN ASTHMA (Reported) Apixaban (Eliquis) 5 MG TABLET 5 MG PO Q12H AF Aspirin (Ecotrin*) 81 MG TABLET.DR 1 TAB PO DAILY HEART/BLOOD (Reported) Clotrimazole 1 % CREAM..G. 1 CED TOP QAMPM rash apply to affected area(s) Cyanocobalamin (Vitamin B-12) (Cyanocobalamin Injection) 1,000 MCG/ML VIAL 1 ML IM Q30D SUPPLEMENT (Reported) Erythromycin Base (Erythromycin) 5 MG/GRAM (0.5 %) OINT...G. 1 CED OPH 4XDP blepharitis apply 1 cm ribbon into the lower conjunctival sac Fluticasone/Salmeterol (Advair 250-50 Diskus) 250 MCG-50 MCG/DOSE BLST.W.DEV 1 PUF INH BID RESP. (Reported) Folic Acid 1 MG TABLET 1 TAB PO DAILY SUPPLEMENT (Reported) Furosemide 40 MG TABLET 1 TAB PO DAILY DIURETIC (Reported) Magnesium Oxide 400 MG TABLET 400 MG PO DAILY supplement Meloxicam 15 MG TABLET 1 TAB PO DAILY PAIN (Reported) Metoprolol Succinate 50 MG TAB.ER.24H 1 TAB PO DAILY HEART (Reported) Nitrofurantoin Monohyd/M-Cryst (Macrobid 100 MG Capsule) 100 MG CAPSULE 1 CAP PO BID uti with food Sertraline HCl 50 MG TABLET 1 TAB PO DAILY DEPRESSION (Reported) Simvastatin (Simvastatin*) 40 MG TABLET 1 TAB PO QPM CHOLESTEROL (Reported) Past History Travel History Traveled to [place] past 21 day No Medical History Neurological: NONE EENT: PSORIASIS Cardiovascular: AFIB, CAD, mitral stenosis Respiratory: asthma Gastrointestinal: NONE Hepatic: NONE Renal: NONE Musculoskeletal: gout, OSTEOARTHRITIS Psychiatric: NONE Endocrine: NONE Blood Disorders: NONE Cancer(s): NONE TELEPRINTER/Reproductive: NONE Other Medical Hx: Psoriasis History of MRSA: No History of VRE: No History of CDIFF: No Surgical History Surgical History: CABG Past Family/Social History Family History Relations & Conditions if any SISTER FH: diabetes mellitus Psychosocial History Who Do You Live With? self Services at Home: Home Health Aide, Nursing Functional Ability ADLs Independent: dressing, eating, toileting, bathing. Ambulation: independent IADLs Independent: shopping, housework, finances, food prep, telephone, transportation , medication admin.
--- NOTE | 2017-11-20 16:57 | History & Physical ---
James Rivers MD 11/20/17 5734: General Information and HPI MD Statement: I have seen and personally examined LIZ PARSON and documented this H&P. The patient is a 87 year old M who presented with a patient stated chief complaint of [unwitnessed fall]. Source of Information: patient, family Exam Limitations: poor historian History of Present Illness: Patient is a 87-year-old intellectually challenged male with an extensive past medical history significant for A. fib, mitral stenosis, CAD status post CABG and aortic valve replacement, COPD, gout, psoriasis, HTN, HLD, OA, who presents after suffering an unwitnessed fall while at home. Patient is a poor historian and much of the history was obtained from his niece who partakes in his care. Patient suffered a mechanical fall last week which was witnessed at an adult daycare center. He did not suffer any injuries that time. He was in his usual state of health until prior to admission he fell in his bathroom, he was able to crawl to bed however he continued to feel weak. He was found by his home health aide called 911. Patient states that he slipped and fell and that he lost consciousness for niece is not a reliable historian. He endorses lightheadedness preceding the fall. He denied any associated chest pain, shortness breath, vomiting, diaphoresis. Allergies/Medications Allergies: Coded Allergies: No Known Allergies (06/23/17) Home Med list Adalimumab (Humira Pen) 40 MG/0.8 ML PEN.IJ.KIT 40 MG SC Q2W PSORIASIS ( Reported) Albuterol Sulfate (Ventolin Hfa) 18 GM HFA.AER.AD 2 PUF INH Q4-6 PRN PRN ASTHMA (Reported) Albuterol Sulfate 2.5 MG/3 ML (0.083 %) VIAL.NEB 1 Vial INH/BILLIE TID PRN RESP. (Reported) Apixaban (Eliquis) 5 MG TABLET 5 MG PO Q12H AF Aspirin (Ecotrin*) 81 MG TABLET.DR 1 TAB PO DAILY HEART/BLOOD (Reported) Clotrimazole 1 % CREAM..G. 1 CED TOP QAMPM rash apply to affected area(s) Cyanocobalamin (Vitamin B-12) (Cyanocobalamin Injection) 1,000 MCG/ML VIAL 1 ML IM Q30D SUPPLEMENT (Reported) Docusate Sodium (Colace) 100 MG CAPSULE 1 CAP PO DAILY STOOL SOFTENER ( Reported) Ergocalciferol (Vitamin D2) (Vitamin D2) 50,000 UNIT CAPSULE 1 CAP PO Q30D SUPPLEMENT (Reported) Fluticasone/Salmeterol (Advair 250-50 Diskus) 250 MCG-50 MCG/DOSE BLST.W.DEV 1 PUF INH BID RESP. (Reported) Folic Acid 1 MG TABLET 1 TAB PO DAILY SUPPLEMENT (Reported) Furosemide 40 MG TABLET 1 TAB PO DAILY DIURETIC (Reported) Metoprolol Succinate 50 MG TAB.ER.24H 1 TAB PO DAILY HEART (Reported) Oxybutynin Chloride (Oxybutynin Chloride ER) (Unknown Strength) TAB.ER.24 ( Unknown Dose) PO DAILY UNKNOWN (Reported) Sennosides (Senna) 8.6 MG TABLET 2 TAB PO QHS GI (Reported) Sertraline HCl 50 MG TABLET 1 TAB PO DAILY DEPRESSION (Reported) Simvastatin (Simvastatin*) 40 MG TABLET 1 TAB PO QPM CHOLESTEROL (Reported) Tolterodine Tartrate (Detrol LA) 4 MG CAP.ER.24H 1 CAP PO DAILY BLADDER ( Reported) Triamcinolone Acetonide 0.1 % OINT...G. 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 Home Who Do You Live With? self Services at Home: Home Health Aide, Nursing Primary Language: Ethiopian Smoking Status: Never Smoked ETOH Use: former heavy use Illicit Drug Use: denies illicit drug use Functional Ability Ambulation: walker Review of Systems Review of Systems Constitutional: Denies: chills, fever. EENTM: Reports: no symptoms. Cardiovascular: Denies: chest pain, palpitations, syncope. Respiratory: Denies: cough, short of breath, sputum production. GI: Reports: no symptoms. Genitourinary: Reports: no symptoms. Musculoskeletal: Reports: no symptoms. Skin: Reports: no symptoms. Neurological/Psychological: Reports: no symptoms. Exam & Diagnostic Data Last 24 Hrs of Vital Signs/I&O Vital Signs Date Time Temp Pulse Resp B/P B/P Pulse O2 O2 Flow FiO2 Mean Ox Delivery Rate 11/20 1804 98.2 92 18 121/68 97 Room Air 11/20 1408 98.2 86 16 102/66 96 Room Air 11/20 1242 98 Room Air 11/20 1202 97.7 93 16 121/87 97 Room Air Intake & Output 11/20 1600 11/20 0800 11/20 0000 Intake Total Output Total 200 Balance -200 Output, Urine 200 Patient 250 lb Weight Weight Estimated Measurement Method Physical Exam General Appearance Alert, Cooperative, No Acute Distress, oriented to person, not time or place Skin Temp/Moisture Exam: Warm/Dry Sepsis Skin Exam (color): Normal for Ethnicity Cardiovascular distant heart sounds, irregularly irregular rhythm, systolic 2/6 murmur Lungs Clear to Auscultation, Normal Air Movement Abdomen Normal Bowel Sounds, Soft, No Tenderness Neurological Normal Speech, Normal Tone, Sensation Intact, Cranial Nerves 3-12 NL, patient was not compliant with lower extremity portion of neuro exam secondary to knee pain Extremities No Clubbing, No Cyanosis, 1-2 + BLE edema Last 24 Hrs of Labs/Harsh: Laboratory Tests 11/20/172033: Troponin I Pending 11/20/17 1557: Lactic Acid 2.0 11/20/17 1325: Urinalysis LIGHT H, Urine Color YEL, Urine Clarity CLEAR, Urine pH 6.0, Ur Specific Sa[place]emin 1.025, Urine Protein TRACE H, Urine Ketones TRACE H, Urine Nitrite NEG, Urine Bilirubin NEG, Urine Urobilinogen 0.2, Ur Leukocyte Esterase NEG, Ur Microscopic SEDIMENT EXAMINED, Urine RBC 1-3, Urine WBC RARE, Ur Epithelial Cells MOD H, Urine Bacteria RARE H, Urine Mucus MOD H, Urine Hemoglobin NEG, Urine Glucose NEG 11/20/17 1237: Anion Gap 12, Estimated GFR > 60, BUN/Creatinine Ratio 31.1 H, Glucose 118 H, Lactic Acid 2.2 H, Calcium 9.1, Phosphorus 3.4, Magnesium 2.3, Total Bilirubin 1.4 H, AST 29, ALT 22, Alkaline Phosphatase 82, Creatine Kinase 213 H, Troponin I 0.04, Total Protein 7.4, Albumin 4.2, Globulin 3.2, Albumin/Globulin Ratio 1.3, TSH 3.030, Free T4 1.17, PT 18.9 H, INR 1.72 H, APTT 39 H, CBC w Diff NO MAN DIFF REQ, RBC 4.67 L, MCV 89.0, MCH 29.0, MCHC 32.6 L, RDW 15.6 H , MPV 8.5, Gran % 74.4, Lymphocytes % 11.7 L, Monocytes % 13.2 H, Eosinophils % 0.3, Basophils % 0.4, Absolute Granulocytes 5.7, Absolute Lymphocytes 0.9 L, Absolute Monocytes 1.0 H, Absolute Eosinophils 0, Absolute Basophils 0 Microbiology 11/20 1624 NASOPHARYN: Influenza Virus A & B Rapid Smear - ORD Diagnostic Data EKG Results A fib, HR 95, QTc [address] OF THE HEAD: Age-appropriate moderate diffuse cortical atrophy is noted, unchanged since 09/10/2015. Mild chronic microvascular deep white matter ischemic changes are also present, unchanged. Specifically, no evidence of intra-axial mass, mass effect, extra-axial fluid collection, midline shift, acute intraparenchymal hemorrhage and/or acute infarction present. Both orbital globes, extraocular muscles, optic nerves appear bilaterally symmetric and are unremarkable. The bilateral mastoid air cells appear unremarkable. CT OF THE CERVICAL SPINE: Nonspecific straightening of the cervical spine is noted with underlying significant facet degenerative arthritic changes throughout the entire cervical spine (left greater than right). Moderate to severe multilevel degenerative spondylosis is also noted at C4-C5, C5-C6, C6-C7 and mild degenerative spondylosis within the remainder of the cervical spine. The C1-C2 alignment is intact. There is no prespinal soft tissue hematoma present. Both lung apices are clear. Incidental note is made of extensive atherosclerotic disease within the coronary arterial tree bilaterally, unchanged since prior study. No significant change since prior study dated 09/10/2015. IMPRESSION: 1. No acute intracranial pathology. 2. No CT evidence of any acute fracture no subluxation or dislocation or prespinal soft tissue hematoma present at the cervical spine. 3. No significant change since most recent prior CT of the head and cervical spine dated 09/10/2015. Specifically, no CT evidence of any acute intracranial hemorrhage is seen. VISUALIZED NECK: Unremarkable. LUNGS: There is a linear 2 to 3 mm opacity noted at left upper lobe anteriorly (see the hernandez images), may represent tiny atelectatic change versus nonspecific nodule. The remainder of the lungs wells otherwise appear clear. Mild hypoventilatory changes are noted at both lung bases. The tracheobronchial tree appeared patent. MEDIASTINUM: Significant atherosclerotic disease is noted within the aorta and its branches including mitral valve annular and aortic valve calcifications. Postoperative changes of sternotomy and CABG is noted. There is cardiomegaly present with predominant enlargement of the left atrium and left ventricle. PLEURA: There is no pleural effusion. No pleural mass or thickening. AXILLA: No lymphadenopathy LIVER, GALLBLADDER, BILIARY TREE: Unremarkable. PANCREAS: Unremarkable. SPLEEN: Unremarkable. ADRENAL GLANDS AND KIDNEYS: Both adrenal glands are unremarkable. There are multiple right renal cortical as well as extrahepatic hypodensities identified. Specifically, at the superior pole of the right kidney, there is a 3.2 cm cortical hypodensity present with Hounsfield value of 33. A well-circumscribed oval-shaped hypodense mass is noted at superior medial aspect of the right kidney likely represent an exophytic mass, measures 3.3 cm with Hounsfield value of 27. The largest bilobed mass is seen near the inferior pole, measures 5.4 cm at its maximum anteroposterior dimension with Hounsfield value varying between 15-22. These are not optimally characterized however likely represent minimally complicated cysts. Within the left kidney, there is an exophytic pericapsular hypodensity present measures 1.8 cm at its maximum dimension with Hounsfield value of 32, may represent minimally complicated cyst. Nonemergent follow-up ultrasound of both kidneys is recommended for further clarification. URETERS AND BLADDER: Both ureters appear decompressed. The urinary bladder is unremarkable. BOWEL LOOPS: Significant fecal residual is noted within the rectum and sigmoid colon. The appendix is visualized, appear unremarkable. The small bowel loops are decompressed. There is a small sliding hiatal hernia present. LYMPHOVASCULAR STRUCTURES: Diffuse atherosclerotic disease is noted within the aorta and its branches without aneurysm formation. There are no pathologically enlarged retroperitoneal, mesenteric, pelvic and/or inguinal, groin lymphadenopathy seen. PELVIS: There is no free fluid and/or free air present. There is no pelvic mass seen. BONES: No suspicious lytic or sclerotic abnormalities seen. There is no CT evidence of any compression fracture identified within the thoracic and lumbosacral spine. Multilevel moderate degenerative spondylosis however is noted throughout the entire visualized thoracic and lumbosacral spine. Specifically, there is no CT evidence of any intrathoracic, intra-abdominal and/or intrapelvic hematoma identified. IMPRESSION: 1. No acute intrathoracic, intra-abdominal and/or intrapelvic pathology is identified on this nonenhanced study. Specifically, no CT evidence of any hematoma identified within the chest abdomen and pelvis. 2. Incidental note is made of a tiny 2 to 3 mm linear opacity within the left upper lobe of the lung, may represent atelectatic changes versus tiny nodule. 3. Multiple right and solitary left renal focal abnormalities are identified, as described above, not optimally characterized. Follow-up nonemergent bilateral renal ultrasound is recommended for further clarification. XRay knees FINDINGS: Right knee: Moderate to large knee effusion. Moderate chronic medial compartment narrowing with tricompartmental osteophyte formation and chronic superior subluxation of the patella. No acute fracture or dislocation is seen. There is moderate soft tissue swelling. Vascular calcifications are present. Left knee: Moderate knee joint effusion. Severe chronic medial compartment narrowing, with tricompartmental degenerative changes and superior patellar subluxation, chronic. No acute fracture or acute dislocation is seen. There is soft tissue swelling and vascular calcification seen. IMPRESSION: Bilateral knee arthritis most notable in the medial compartments, left worse than right. No acute fracture or dislocation is seen. There are bilateral joint effusions and soft tissue swelling. Doppler LE US Respiratory variation, normal compression and augmented flow are noted throughout the lower extremities. The visualized common femoral vein, superficial femoral vein, profunda femoral vein, popliteal vein and midcalf peroneal and posterior tibial venous segments show no evidence of deep venous thrombosis. Please note that the study is limited by patient body habitus and mobility; the right popliteal fossa was not evaluated. There is no Lucas's cyst. IMPRESSION: Normal triplex scan without evidence of deep venous thrombosis involving the lower extremities. The study is limited by patient body habitus and limited mobility. The right popliteal fossa is not evaluated. Assessment/Plan Assessment: Patient is a 87-year-old intellectually challenged male with an extensive past medical history significant for A. fib, mitral stenosis, CAD status post CABG and aortic valve replacement, COPD, gout, psoriasis, HTN, HLD, OA, who presents after suffering an unwitnessed fall while at home. Vitals on admission: T 97.7, P 93, RR 16, BP 121/87, pulse ox 97% on room air Labs: CO2 31, BUN 28, glucose 118, lactic acid 2.2, T bili 1.4, creatinine kinase 213, TSH and free T4 normal, troponin 0.04, dirty UA with mucus, ketones, bacteria, epithelial cells Problem list #Unwitnessed fall, cannot rule out syncope given patient is a poor historian, radiologic imaging rule out any significant trauma #Chronic medical problems moving CAD, A. fib, patient, HLD, COPD Plan -Admit to telemetry -Continue sun she monitoring -Gentle IV hydration -Confirm medication list in a.m. with patient's visiting nursing service -PT evaluation -Follow-up B12 -Continue home medications -Bedside swallow eval was passed -Discussion was had over the phone with patient's niece Rose who was able to talk directly to the patient's sister/POA. As of this time that it was decided to be DNR/DNI and they also expressed a wish not to escalate care if the need should arise, with no ICU transfer or central line or pressors. Diet: Heart healthy diet DVT prophylaxis: Adrian Aquino CODE STATUS: DNR/DNI As Ranked By This Provider Problem List: 1. Syncope and collapse 2. Weakness Core Measures/Misc (04/24) Acute Coronary Syndrome ACS Diagnosis: No Congestive Heart Failure Congestive Heart Failure Diagnosis No Cerebrovascular Accident CVA/TIA Diagnosis: No VTE (View Protocol) VTE Risk Factors Age>40 No Mechanical VTE Prophylaxis d/t N/A MechProphylax Ordered No VTE Pharm Prophylaxis d/t NA PharmProphylax ordered Sepsis (View protocol) Sepsis Present: No Lela Cowart MD 11/20/17 1707: Attending MD Review Statement Attending Statement Attending MD Statement: examined this patient, discuss w/resident/PA/ASSISTANT NURSE MANAGER, agreed w/resident/PA/ASSISTANT NURSE MANAGER, reviewed EMR data (avail) Attending Assessment/Plan: 87M PMH hypertension, hyperlipidemia, moderate mitral stenosis, history of bioprosthetic aortic valve replacement and LAD graft,coronary artery disease, status post CABG, COPD, gout, psoriasis, psoriatic arthritis was found by his caregiver this morning sitting on the couch instead of in bed, telling her he fell sometime during the night and dragged himself to the couch, and was too weak to get back to bed. He reports dizziness prior to fall, but did not lose consciousness or hit his head, though he is not absolutely certain of this. His only complaint at this time is generalized weakness and diffuse myalgia. Imaging was normal. Labs show mildly increased lactate and bili. Neuro exam normal. Plan: Admit to general medicine, gentle IV hydration, PT eval, TSH, B12 level, continue home meds, DVT PPx Matt Zelaya 11/20/174: Resident Review Statement Resident Statement: examined this patient, discussed with internal medicine specialist, agreed with internal medicine specialist, discussed with family, reviewed EMR data (avail), discussed with nursing , discussed with case mgmt, reviewed images, amended to note Other Findings: Patient is a 87-year-old male with medical history of hypertension, hyperlipidemia, moderate mitral stenosis, history of bioprosthetic aortic valve replacement and LAD graft,coronary artery disease, status post CABG, COPD not on Home O2, gout, psoriasis, psoriatic arthritis, atrial fibrillation on Eliquis. Presented to the emergency department as the patient was found by his caregiver sitting on the couch this morning and patient stated that he fell last night. Patient reports that he thinks that he became dizzy lightheaded and fell on to his knees. Patient suffered a mechanical fall last week which was witnessed at an adult daycare center. He did not suffer any injuries that time. He was in his usual state of health until prior to admission he fell in his bathroom, he was able to crawl to bed however he continued to feel weak. On presentation due to a concern off lower extremity arterial and venous insufficiency according to the ED staff the Doppler study came back negative for DVT and arterial study was within acceptable limits. Hernandez CT scan of the patient head, chest, abdomen, pelvis was done in the ED that showed incidental 2-3 mm linear opacity within the left upper lobe of the lung, no signs for fractures. Patient received 1 L of IV fluid normal saline as his CK and lactic acid was slightly elevated. Physical examination, lab and imaging as above. Problem list: -Unwitnessed Fall/Syncope -Unstable gait, generalized weakness -Lactic acidosis Plan: -Admit patient to telemetry floor -Vitas every shift, NIH, high fall risk precaution -Serial troponin and EKG -Echocardiogram -Bilateral carotid ultrasound -Obtain orthostatic -Obtain TSH, free T4, vitamin B12 -Trend lactic acid -TRC nebs as needed -Continue home medication, need to confirm CMR in a.m. -Physical therapy consultation in a.m. -Heart healthy diet -Pain pathway -DVT prophylaxis: Eliquis -DNI DNR -Pain pathway -DVT prophylaxis: Eliquis -DNI DNR
[2017-11-20] MEDS ORDERED: ALBUTEROL2.5 MG/3 M INH/SOL (17:29)
[2017-11-20] MEDS ORDERED: COLACE100 M1 PO (17:30)
[2017-11-20] MEDS ORDERED: EUCERIN CREME454 GM TOP (17:31)
[2017-11-20] MEDS ORDERED: SENNA8.6 M3 PO (17:32)
[2017-11-20] MEDS ORDERED: VITAMIN D250000 UNIT PO (17:33)
[2017-11-20] MEDS ORDERED: TRIAMCINOLONE A15 G3 TOP (17:33)
[2017-11-20] MEDS ORDERED: TOVIAZ4 MG PO (17:34)
[2017-11-20] MEDS ORDERED: DETROL LA4 M1 PO (17:34)
[2017-11-20] MEDS ORDERED: OXYBUTYNIN CHLO15 M1 PO (17:38)
[2017-11-21 03:32] VITALS: BP 122/71
[2017-11-21 05:08] LABS: ABSOLUTE BASOPHIL COUNT 0 /CUMM (0.0-0.2); ABSOLUTE EOSINOPHIL COUNT 0 /CUMM (0.0-0.7); ABSOLUTE GRANULOCYTE CT 4.6 /CUMM (1.4-6.5); ABSOLUTE LYMPH COUNT 0.7 /CUMM (1.2-3.4); BASOPHIL % 0.1 % (0.0-2.0); EOSINOPHIL % 0.2 % (0-5); GRANULOCYTE % 72.2 % (42.2-75.2); MEAN CORPUSCULAR HGB 28.9 PG (27.0-31.0); MEAN CORPUSCULAR HGB CONC 32.6 G/DL (33.0-37.0); MEAN CORPUSCULAR VOLUME 88.6 FL (80.0-94.0); MEAN PLATELET VOLUME 9.5 FL (7.4-10.4); PLATELET COUNT 121 /CUMM (130-400); RED BLOOD CELL CT 3.76 /CUMM (4.70-6.10); WHITE BLOOD CELL COUNT 6.3 /CUMM (4.8-10.8)
[2017-11-21 05:13] LABS: HEMATOCRIT 33.3 % (42-52)
--- NOTE | 2017-11-21 07:38 | PN- Housestaff ---
Harvey Quan 11/21/17 0738: Subjective Follow-up For: Syncope Generalized weakness Lactic acidosis resolved Complaints: pain scale (0-10) Tele-Events Since Last Visit: Tele events uneventful Atrial fibrillation, rate varying between 80-90, QTC 488 Subjective: Patient was seen and examined this morning. He is alert awake and oriented to time place and person. No acute events noticed. Patient denies any further episodes of syncope, dizzy or lightheadedness. Denies loss of consciousness. No chest pain, short of breath, fever, chills, palpitations. Telemetry events noticed, uneventful Vitals afebrile, heart rate 90, respiratory 16, blood pressure 120/87, saturating at 97 on room air Review of Systems Constitutional: Reports: see HPI. Objective Last 24 Hrs of Vital Signs/I&O Vital Signs Date Time Temp Pulse Resp B/P B/P Pulse O2 O2 Flow FiO2 Mean Ox Delivery Rate 11/21 0332 96 Room Air 11/21 0332 98.3 87 19 122/71 96 Room Air 11/21 0224 97.3 85 18 125/70 96 Room Air 11/20 2044 98.0 97 18 103/70 95 Room Air 11/20 1804 98.2 92 18 121/68 97 Room Air 11/20 1408 98.2 86 16 102/66 96 Room Air 11/20 1242 98 Room Air 11/20 1202 97.7 93 16 121/87 97 Room Air Intake & Output 11/21 1600 11/21 0800 11/21 0000 Intake Total 456 500 Output Total 200 Balance 456 300 Intake, IV 216 500 Intake, Oral 240 Output, Urine 200 Patient 124.5 kg Weight Weight Bed scale Measurement Method Physical Exam General Appearance: Alert, Oriented X3, Cooperative Other Physical Findings: General Appearance Alert, Cooperative, No Acute Distress, oriented to person, not time or place Skin Temp/Moisture Exam: Warm/Dry Sepsis Skin Exam (color): Normal for Ethnicity Cardiovascular distant heart sounds, irregularly irregular rhythm, systolic 2/6 murmur Lungs Clear to Auscultation, Normal Air Movement Abdomen Normal Bowel Sounds, Soft, No Tenderness Neurological Normal Speech, Normal Tone, Sensation Intact, Cranial Nerves 3-12 NL, patient was not compliant with lower extremity portion of neuro exam secondary to knee pain Extremities No Clubbing, No Cyanosis, 1-2 + BLE edema Last 24 Hrs of Labs/Harsh: Current Medications: Current Medications Sig/Lissa Start time Last Medication Dose Route Stop Time Status Admin Acetaminophen 650 MG Q6P PRN 11/20 1715 AC PO Albuterol Sulfate 2 PUF Q4-6 PRN PRN 11/20 1830 AC INH Apixaban 5 MG BID 11/21 0900 AC 11/21 PO 0910 Apixaban 5 MG Q12H 11/20 1830 DC 11/20 PO 2329 Aspirin Buffered 81 MG DAILY 11/21 1108 AC PO Atorvastatin Calcium 20 MG 1700 11/21 1700 AC PO Budesonide/ 2 PUF BID 11/20 2100 AC 11/21 Formoterol Fumarate INH 0911 Docusate Sodium 100 MG DAILY 11/21 0900 AC 11/21 PO 0909 Hydrocodone Bitart/ 1 TAB Q8P PRN 11/20 1730 AC 11/21 Acetaminophen PO 0515 Metoprolol Succinate 50 MG DAILY 11/22 0900 AC PO Oxybutynin Chloride 5 MG TID 11/22 0900 AC PO Sertraline HCl 50 MG DAILY 11/20 1817 AC 11/21 PO 0909 Sodium Chloride 1,000 ML Q13H 11/20 2115 DC 11/20 IV 11/21 1014 2352 Sodium Chloride 500 ML BOLUS ONE 11/20 1430 DC 11/20 IV 11/20 1529 1518 Last 24 Hrs of Lab/Harsh Results Last 24 Hrs of Labs/Mics: Laboratory Tests 11/21/17 0416: Anion Gap 8, Estimated GFR > 60, BUN/Creatinine Ratio 28.9 H, CBC w Diff NO MAN DIFF REQ, RBC 3.76 L, MCV 88.6, MCH 28.9, MCHC 32.6 L, RDW 15.0 H, MPV 9.5, Gran % 72.2, Lymphocytes % 11.4 L, Monocytes % 16.1 H, Eosinophils % 0.2, Basophils % 0.1, Absolute Granulocytes 4.6, Absolute Lymphocytes 0.7 L, Absolute Monocytes 1.0 H, Absolute Eosinophils 0, Absolute Basophils 0 11/21/17 0223: Troponin I 0.06 11/20/17 2034: Troponin I 0.05, Vitamin B12 712 11/20/17 1557: Lactic Acid 2.0 11/20/17 1325: Urinalysis LIGHT H, Urine Color YEL, Urine Clarity CLEAR, Urine pH 6.0, Ur Specific [place] 1.025, Urine Protein TRACE H, Urine Ketones TRACE H, Urine Nitrite NEG, Urine Bilirubin NEG, Urine Urobilinogen 0.2, Ur Leukocyte Esterase NEG, Ur Microscopic SEDIMENT EXAMINED, Urine RBC 1-3, Urine WBC RARE, Ur Epithelial Cells MOD H, Urine Bacteria RARE H, Urine Mucus MOD H, Urine Hemoglobin NEG, Urine Glucose NEG 11/20/17 1237: Anion Gap 12, Estimated GFR > 60, BUN/Creatinine Ratio 31.1 H, Glucose 118 H, Lactic Acid 2.2 H, Calcium 9.1, Phosphorus 3.4, Magnesium 2.3, Total Bilirubin 1.4 H, AST 29, ALT 22, Alkaline Phosphatase 82, Creatine Kinase 213 H, Troponin I 0.04, Total Protein 7.4, Albumin 4.2, Globulin 3.2, Albumin/Globulin Ratio 1.3, TSH 3.030, Free T4 1.17, PT 18.9 H, INR 1.72 H, APTT 39 H, CBC w Diff NO MAN DIFF REQ, RBC 4.67 L, MCV 89.0, MCH 29.0, MCHC 32.6 L, RDW 15.6 H , MPV 8.5, Gran % 74.4, Lymphocytes % 11.7 L, Monocytes % 13.2 H, Eosinophils % 0.3, Basophils % 0.4, Absolute Granulocytes 5.7, Absolute Lymphocytes 0.9 L, Absolute Monocytes 1.0 H, Absolute Eosinophils 0, Absolute Basophils 0 Microbiology 11/21 0323 UPPER RESP: Surveillance Culture - RECD 11/21 0323 GI: Surveillance Culture - RECD 11/20 2300 NASOPHARYN: Influenza Virus A & B Rapid Smear - COMP Assessment/Plan Assessment: Patient is a 87-year-old intellectually challenged male with an extensive past medical history significant for A. fib on eliqus, heart failure with reduced ejection fraction, mitral stenosis, prosthetic aortic valve, CAD status post CABG and aortic valve replacement, COPD/asthma, gout, osteoarthritis, psoriasis, HTN, HLD, OA, who presents after suffering an unwitnessed fall while at home. Vitals on admission: T 97.7, P 93, RR 16, BP 121/87, pulse ox 97% on room air Labs: CO2 31, BUN 28, glucose 118, lactic acid 2.2, T bili 1.4, creatinine kinase 213, TSH and free T4 normal, troponin 0.04, dirty UA with mucus, ketones, bacteria, epithelial cells echo May 2016 No obvious regional wall motion abnormalities. Normal left ventricular ejection fraction estimated at 55-60%. Left ventricular wall thickness increased. Lower extremity venous Doppler negative for DVT Arterial ultrasound lower extremity no peripheral arterial disease Head CT and cervical spine CT no acute abnormality was found Knee x-ray- Bilateral knee arthritis most notable in the medial compartments, left worse than right. No acute fracture or dislocation is seen. There are bilateral joint effusions and soft tissue swelling. Chest CT - Incidental note is made of a tiny 2 to 3 mm linear opacity within the left upper lobe of the lung, may represent atelectatic changes versus tiny nodule. Problem list #Unwitnessed fall, cannot rule out syncope given patient is a poor historian, radiologic imaging rule out any significant trauma #Chronic medical problems moving Iris ROWE, patient, HLD, COPD Unwitnessed fall/questionable syncope patient presents after suffering an unwitnessed fall while at home. Patient is a poor historian and much of the history was obtained from his niece who participates in his care. Patient suffered a mechanical fall last week which was witnessed at an adult daycare center. He did not suffer any injuries that time. He was in his usual state of health until prior to admission he fell in his bathroom, he was able to crawl to bed however he continued to feel weak. He was found by his home health aide called 911. Patient states that he slipped and fell and that he lost consciousness for niece is not a reliable historian. He endorses lightheadedness preceding the fall. He denied any associated chest pain, shortness breath, vomiting, diaphoresis. * Tele hold in ICU * Continuous telemetry monitoring * Monitor vitals every shift * Serial troponin and EKG negative * EKG showed atrial fibrillation, rate under control no acute ST-T wave changes * No arrhythmias were found other than his atrial fibrillation * Will follow up orthostatic vitals * Ruled out vasovagal syncope * No hypoglycemic episodes * No history of seizures * We will continue gentle IV hydration * Physical therapy on board Generalized weakness Patient and his family reports generalized weakness. Physical therapy on board Recommended short-term rehabilitation B12 and thyroid numbers were normal Of note patient is getting vitamin D 50,000 international unit capsule every month and vitamin B12 injection every month Lactic acidosis Lactic acid 2.2 at the time of admission Resolved with gentle hydration History of coronary artery disease continue baby aspirin Hyperlipidemia continue simvastatin History of atrial fibrillation continue eliqus 5 twice daily and metoprolol succinate 50 daily Hypertension continue metoprolol succinate with holding parameters Chronic heart failure with reduced ejection fraction Hold Lasix for now given syncopal episode Psoriasis gets adalimumab 40 mg injection every 2 weeks Asthma continue TRC nebs Overactive bladder continue oxybutynin Depression continue Zoloft Bedside swallow eval was passed Discussion was had over the phone with patient's niece Rose who is able to talk directly to the patient's sister/POA. As of this time that it was decided to be DNR/DNI and they also expressed a wish not to escalate care if the need should arise, with no ICU transfer or central line or pressors. Diet: Heart healthy diet DVT prophylaxis: Adrian Aquino CODE STATUS: DNR/DNI Problem List: 1. Syncope and collapse 2. Weakness Pain Ratin Pain Location: b/l knee Pain Goal: Remain pain free Pain Plan: tylinol Tomorrow's Labs & Rationales: cbc bep Lela Cowart MD 11/21/17 1117: Attending MD Review Statement Attending Statement Attending MD Statement: examined this patient, discuss w/resident/PA/COIL TIER, agreed w/resident/PA/COIL TIER, reviewed EMR data (avail) Attending Assessment/Plan: 87M PMH hypertension, hyperlipidemia, moderate mitral stenosis, history of bioprosthetic aortic valve replacement and LAD graft,coronary artery disease, status post CABG, COPD, gout, psoriasis, psoriatic arthritis was found by his caregiver this morning sitting on the couch instead of in bed, telling her he fell sometime during the night and dragged himself to the couch, and was too weak to get back to bed. He reports dizziness prior to fall, but did not lose consciousness or hit his head, though he is not absolutely certain of this. His only complaint at this time is generalized weakness and diffuse myalgia. Imaging was normal. Labs show mildly increased lactate and bili. Neuro exam normal. Still weak today but no active complaints. No telemetry events. Lactate normalized. 1. Unwitnessed fall 2. Lactic acidosis 3. Dehydration Plan - Continue on telemetry - Continue gentle hydration - Follow cardiology recommendations - Repeat echocardiogram - Follow urine culture - PT eval - Continue home medications - DVT PPx
[2017-11-21 08:00] VITALS: BP 120/76
--- NOTE | 2017-11-21 08:15 | ULTRASOUND REPORT ---
EXAMINATION: NONINVASIVE ASSESSMENT OF THE ARTERIES OF BOTH LOWER EXTREMITIES INTERPRETING VASCULAR \T\ INTERVENTIONAL RADIOLOGIST: Luis Alberto Ochoa D.O. CLINICAL INFORMATION: 87-year-old male with cold left leg in delayed cap refill. TECHNIQUE: Left lower extremity duplex ultrasound was performed with velocity measurements and waveform analysis in the common femoral arteries, profunda femoris arteries, proximal mid and distal superficial femoral arteries, popliteal arteries and tibial vessels. This study was performed only at rest. COMPARISON: None FINDINGS: Multiphasic waveforms are seen throughout the left lower extremity arterial system with the exception of the dorsalis pedis artery, where monophasic waveforms are present. Velocities in cm/sec and phasicity as well as the presence of plaque are reported below. LEFT LEG (cm/s): Common Femoral: 77 Profunda Femoris: 49 Proximal SFA: 73 Mid SFA: 54 Distal SFA: 65 Popliteal: 51 Anterior Tibial: 17 Posterior tibial: 39 Dorsalis pedis: 66 IMPRESSION: There is no evidence of any hemodynamically significant lower extremity arterial disease rest. Greater sensitivity and specificity can be obtained with pre-and post exercise PVRs with TESFAYE calculations.
--- NOTE | 2017-11-21 11:58 | ULTRASOUND REPORT ---
EXAMINATION: DUPLEX BILATERAL CAROTID ULTRASOUND CLINICAL INFORMATION: This is an 87-year-old male with history of syncope. Carotid artery disease. COMPARISON: None. TECHNIQUE: Real-time ultrasound and Doppler techniques (integrating B-mode 2D vascular images, Doppler spectral analysis and color flow Doppler imaging) were utilized to interrogate the extracranial carotid and vertebral arteries bilaterally. The degree of stenosis determined by criteria similar to NASCET. FINDINGS: Right side: 1. Severe amount of heterogeneous plaque is seen in the ECA/ICA region. 2. The common carotid artery velocity is 94 cm/s. 3. The internal carotid artery velocities is not present consistent with complete occlusion. 4. The external carotid artery velocity is 50 cm/s. Left side: 1. Moderate amount of heterogeneous plaque is seen in the ECA/ICA region. 2. The common carotid artery velocity is 48 cm/s. 3. The internal carotid artery velocities are 66 cm/s systolic and 18 cm/s diastolic. 4. The external carotid artery velocity is 134 cm/s. ADDITIONAL FINDINGS: 1. The vertebral arteries show antegrade flow. 2. There is an arrhythmia present. IMPRESSION: 1. 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 2. LEFT: Minimal, nonhemodynamically significant stenosis of the proximal left internal carotid artery corresponding to a 0-49% stenosis by velocity criteria. 3. No evidence for hemodynamically significant stenosis in the external carotid arteries.
[2017-11-21 13:57] LABS: ABSOLUTE BASOPHIL COUNT 0 /CUMM (0.0-0.2); ABSOLUTE EOSINOPHIL COUNT 0 /CUMM (0.0-0.7); ABSOLUTE GRANULOCYTE CT 4.3 /CUMM (1.4-6.5); ABSOLUTE MONOCYTE COUNT 0.9 /CUMM (0.10-0.60); BASOPHIL % 0.2 % (0.0-2.0); EOSINOPHIL % 0.6 % (0-5); GRANULOCYTE % 68.6 % (42.2-75.2); HEMATOCRIT 34.8 % (42-52); MEAN CORPUSCULAR HGB 28.9 PG (27.0-31.0); MEAN CORPUSCULAR HGB CONC 32.6 G/DL (33.0-37.0); MEAN CORPUSCULAR VOLUME 88.5 FL (80.0-94.0); MEAN PLATELET VOLUME 8.9 FL (7.4-10.4); PLATELET COUNT 128 /CUMM (130-400); RBC DISTRIBUTION WIDTH 15.4 % (11.5-14.5); RED BLOOD CELL CT 3.93 /CUMM (4.70-6.10); WHITE BLOOD CELL COUNT 6.3 /CUMM (4.8-10.8)
[2017-11-21 16:00] VITALS: BP 116/68
--- NOTE | 2017-11-21 18:19 | Event Note ---
Event Note Event Note: This is an 87-year-old male with admitted with syncope. As a part of syncope workup, carotid vertebral Doppler ultrasound was done this afternoon which showed 1. 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 2. LEFT: Minimal, nonhemodynamically significant stenosis of the proximal left internal carotid artery corresponding to a 0-49% stenosis by velocity criteria. 3. No evidence for hemodynamically significant stenosis in the external carotid arteries. * Notified Dr. Cowart. * vascular surgery was contacted. * Requested stat call back. * Spoke with Dr. Jane vascular surgeon over phone regarding complete occlusion of right carotid artery. * CAT scan head was done on 11/20/2017, no acute intracranial pathology no acute infarcts were found. Specifically, no evidence of intra-axial mass, mass effect, extra-axial fluid collection, midline shift, acute intraparenchymal hemorrhage and/or acute infarction present. * Given no stroke, Dr. Jane recommended to follow-up closely for now with no acute interventions * Vascular surgeon is going to follow-up with him tomorrow.
--- NOTE | 2017-11-21 21:47 | Cons- Cardiology ---
General Information and HPI Consulting Request Date of Consult: 11/21/17 Requested By: Lela Cowart MD History of Present Illness: patient sustained a fall from his elena at home, without trauma, possibly preceded by lightheadedness and possibly involving loss of consciousness, both of which are unclear given the patient's difficulty recounting the events. He is followed by cardiology for a history of atrial fibrillation anticoagulated with apixaban, and aortic valve stenosis s/p bioprosthetic valve, which showed moderate stenosis on last echo in 2017, with a mean gradient of 22 mmHg. Allergies/Medications Allergies: Coded Allergies: No Known Allergies (06/23/17) Home Med List: Adalimumab (Humira Pen) 40 MG/0.8 ML PEN.IJ.KIT 40 MG SC Q2W PSORIASIS ( Reported) Albuterol Sulfate (Ventolin Hfa) 18 GM HFA.AER.AD 2 PUF INH Q4-6 PRN PRN ASTHMA (Reported) Albuterol Sulfate 2.5 MG/3 ML (0.083 %) VIAL.NEB 1 Vial INH/BILLIE TID PRN RESP. (Reported) Apixaban (Eliquis) 5 MG TABLET 5 MG PO Q12H AF Aspirin (Ecotrin*) 81 MG TABLET.DR 1 TAB PO DAILY HEART/BLOOD (Reported) Clotrimazole 1 % CREAM..G. 1 CED TOP QAMPM rash apply to affected area(s) Cyanocobalamin (Vitamin B-12) (Cyanocobalamin Injection) 1,000 MCG/ML VIAL 1 ML IM Q30D SUPPLEMENT (Reported) Docusate Sodium (Colace) 100 MG CAPSULE 1 CAP PO DAILY STOOL SOFTENER ( Reported) Ergocalciferol (Vitamin D2) (Vitamin D2) 50,000 UNIT CAPSULE 1 CAP PO Q30D SUPPLEMENT (Reported) Fluticasone/Salmeterol (Advair 250-50 Diskus) 250 MCG-50 MCG/DOSE BLST.W.DEV 1 PUF INH BID RESP. (Reported) Folic Acid 1 MG TABLET 1 TAB PO DAILY SUPPLEMENT (Reported) Furosemide 40 MG TABLET 1 TAB PO DAILY DIURETIC (Reported) Metoprolol Succinate 50 MG TAB.ER.24H 1 TAB PO DAILY HEART (Reported) Oxybutynin Chloride (Oxybutynin Chloride ER) (Unknown Strength) TAB.ER.24 ( Unknown Dose) PO DAILY UNKNOWN (Reported) Sennosides (Senna) 8.6 MG TABLET 2 TAB PO QHS GI (Reported) Sertraline HCl 50 MG TABLET 1 TAB PO DAILY DEPRESSION (Reported) Simvastatin (Simvastatin*) 40 MG TABLET 1 TAB PO QPM CHOLESTEROL (Reported) Tolterodine Tartrate (Detrol LA) 4 MG CAP.ER.24H 1 CAP PO DAILY BLADDER ( Reported) Triamcinolone Acetonide 0.1 % OINT...G. 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 Home Who Do You Live With? self Services at Home: Home Health Aide, Nursing Primary Language: Icelandic Smoking Status: Never Smoked ETOH Use: former heavy use Illicit Drug Use: denies illicit drug use Functional Ability Ambulation: walker Exam & Diagnostic Data Vital Signs and I&O Vital Signs Date Time Temp Pulse Resp B/P B/P Pulse O2 O2 Flow FiO2 Mean Ox Delivery Rate 11/21 1600 96 Room Air 11/21 1600 98.7 85 18 116/68 96 Room Air 11/21 1435 Room Air 11/21 0800 98.5 80 18 120/76 97 Room Air 11/21 0800 97 Room Air 11/21 0332 96 Room Air 11/21 0332 98.3 87 19 122/71 96 Room Air 11/21 0224 97.3 85 18 125/70 96 Room Air Intake & Output 11/21 1600 16 0800 /16 0000 11/20 1600 11/20 0800 11/20 0000 Intake Total 837 456 500 Output Total 475 200 200 Balance 362 456 300 -200 Intake, IV 537 216 500 Intake, Oral 300 240 Number 1 Bowel Movements Output, Urine 475 200 200 Patient 274 lb 250 lb Weight Weight Bed scale Estimated Measurement Method Physical Exam: General Appearance Alert, Cooperative, No Acute Distress, oriented to person only HEENT: mucosa pink and moist, neck: trachea midline, neck supple, no JVD Cardiovascular: irregularly irregular rhythm, systolic 2/6 murmur best heard at the base Lungs Clear to Auscultation, Normal Air Movement Abdomen Normal Bowel Sounds, Soft, No Tenderness Extremities No Clubbing, No Cyanosis, good capillary refill. 1-2 + BLE edema Labs/Harsh Results: Laboratory Tests 11/21 11/21 1342 0416 Chemistry Sodium (137 - 145 mmol/L) 139 Potassium (3.5 - 5.1 mmol/L) 4.0 Chloride (98 - 107 mmol/L) 102 Carbon Dioxide (22 - 30 mmol/L) 29 Anion Gap (5 - 16) 8 BUN (9 - 20 mg/dL) 26 H Creatinine (0.7 - 1.2 mg/dL) 0.9 Estimated GFR (>60 ml/min) > 60 BUN/Creatinine Ratio (7 - 25 %) 28.9 H Uric Acid (3.5 - 8.5 mg/dL) 6.1 Hematology CBC w Diff NO MAN DIFF REQ NO MAN DIFF REQ WBC (4.8 - 10.8 /CUMM) 6.3 6.3 RBC (4.70 - 6.10 /CUMM) 3.93 L 3.76 L Hgb (14.0 - 18.0 G/DL) 11.4 L 10.9 L Hct (42 - 52 %) 34.8 L 33.3 L MCV (80.0 - 94.0 FL) 88.5 88.6 MCH (27.0 - 31.0 PG) 28.9 28.9 MCHC (33.0 - 37.0 G/DL) 32.6 L 32.6 L RDW (11.5 - 14.5 %) 15.4 H 15.0 H Plt Count (130 - 400 /CUMM) 128 L 121 L MPV (7.4 - 10.4 FL) 8.9 9.5 Gran % (42.2 - 75.2 %) 68.6 72.2 Lymphocytes % (20.5 - 51.1 %) 15.4 L 11.4 L Monocytes % (1.7 - 9.3 %) 15.2 H 16.1 H Eosinophils % (0 - 5 %) 0.6 0.2 Basophils % (0.0 - 2.0 %) 0.2 0.1 Absolute Granulocytes (1.4 - 6.5 /CUMM) 4.3 4.6 Absolute Lymphocytes (1.2 - 3.4 /CUMM) 1.0 L 0.7 L Absolute Monocytes (0.10 - 0.60 /CUMM) 0.9 H 1.0 H Absolute Eosinophils (0.0 - 0.7 /CUMM) 0 0 Absolute Basophils (0.0 - 0.2 /CUMM) 0 0 11/21 11/20 11/20 11/20 0223 2034 1557 1325 Chemistry Lactic Acid (0.7 - 2.1 mmol/L) 2.0 Troponin I (<0.11 ng/ml) 0.06 0.05 Vitamin B12 (239 - 931 pg/mL) 712 Urines Urinalysis LIGHT H Urine Color (YEL,AMB,STR) YEL Urine Clarity (CLEAR) CLEAR Urine pH (5.0 - 8.0) 6.0 Ur Specific [place] (1.001 - 1.035) 1.025 Urine Protein (NEG,<30 MG/DL) TRACE H Urine Ketones (NEG) TRACE H Urine Nitrite (NEG) NEG Urine Bilirubin (NEG) NEG Urine Urobilinogen (0.1 - 1.0 EU/dl) 0.2 Ur Leukocyte Esterase (NEG) NEG Ur Microscopic SEDIMENT EXAMINED Urine RBC (0 - 5 /HPF) 1-3 Urine WBC (0 - 2 /HPF) RARE Ur Epithelial Cells (NONE,FEW) MOD H Urine Bacteria (NEG/NONE) RARE H Urine Mucus (FEW,NONE) MOD H Urine Hemoglobin (NEG) NEG Urine Glucose (N MG/DL) NEG 11/20 1237 Chemistry Sodium (137 - 145 mmol/L) 143 Potassium (3.5 - 5.1 mmol/L) 4.1 Chloride (98 - 107 mmol/L) 99 Carbon Dioxide (22 - 30 mmol/L) 31 H Anion Gap (5 - 16) 12 BUN (9 - 20 mg/dL) 28 H Creatinine (0.7 - 1.2 mg/dL) 0.9 Estimated GFR (>60 ml/min) > 60 BUN/Creatinine Ratio (7 - 25 %) 31.1 H Glucose (65 - 99 mg/dL) 118 H Lactic Acid (0.7 - 2.1 mmol/L) 2.2 H Calcium (8.4 - 10.2 mg/dL) 9.1 Phosphorus (2.5 - 4.5 mg/dL) 3.4 Magnesium (1.6 - 2.3 mg/dL) 2.3 Total Bilirubin (0.2 - 1.3 mg/dL) 1.4 H AST (17 - 59 U/L) 29 ALT (21 - 72 U/L) 22 Alkaline Phosphatase (< 127 U/L) 82 Creatine Kinase (55 - 170 U/L) 213 H Troponin I (<0.11 ng/ml) 0.04 Total Protein (6.3 - 8.2 g/dL) 7.4 Albumin (3.5 - 5.0 g/dL) 4.2 Globulin (1.9 - 4.2 gm/dL) 3.2 Albumin/Globulin Ratio (1.1 - 2.2 %) 1.3 TSH (0.270 - 4.200 uIU/mL) 3.030 Free T4 (0.85 - 1.93 ng/dL) 1.17 Coagulation PT (9.4 - 12.5 SEC) 18.9 H INR (0.90 - 1.17) 1.72 H APTT (25 - 37 SEC) 39 H Hematology CBC w Diff NO MAN DIFF REQ WBC (4.8 - 10.8 /CUMM) 7.6 RBC (4.70 - 6.10 /CUMM) 4.67 L Hgb (14.0 - 18.0 G/DL) 13.5 L Hct (42 - 52 %) 41.5 L MCV (80.0 - 94.0 FL) 89.0 MCH (27.0 - 31.0 PG) 29.0 MCHC (33.0 - 37.0 G/DL) 32.6 L RDW (11.5 - 14.5 %) 15.6 H Plt Count (130 - 400 /CUMM) 166 MPV (7.4 - 10.4 FL) 8.5 Gran % (42.2 - 75.2 %) 74.4 Lymphocytes % (20.5 - 51.1 %) 11.7 L Monocytes % (1.7 - 9.3 %) 13.2 H Eosinophils % (0 - 5 %) 0.3 Basophils % (0.0 - 2.0 %) 0.4 Absolute Granulocytes (1.4 - 6.5 /CUMM) 5.7 Absolute Lymphocytes (1.2 - 3.4 /CUMM) 0.9 L Absolute Monocytes (0.10 - 0.60 /CUMM) 1.0 H Absolute Eosinophils (0.0 - 0.7 /CUMM) 0 Absolute Basophils (0.0 - 0.2 /CUMM) 0 Assessment/Plan Assessment/Plan Fall without trauma in unclear circumstances. Patient anticoagulated for afib. no event on monitor thus far explaining syncope (jeffery, pause, sustained tachycardia). s/p bioprosthetic aortic valce replacement, which now shows moderate stenosis on last echocardiography. I would repeat the echo while the patient is still in hospital, to evaluate if acceleration of stenosis... will maintain on telemetry another 24hrs. no change in meds for the moment. Consult Acknowledgment - Thank you for your consult request.
[2017-11-22] VITALS: BP 110/00
[2017-11-22 05:18] LABS: ABSOLUTE BASOPHIL COUNT 0 /CUMM (0.0-0.2); ABSOLUTE EOSINOPHIL COUNT 0 /CUMM (0.0-0.7); ABSOLUTE GRANULOCYTE CT 3.6 /CUMM (1.4-6.5); ABSOLUTE LYMPH COUNT 1.1 /CUMM (1.2-3.4); ABSOLUTE MONOCYTE COUNT 0.7 /CUMM (0.10-0.60); BASOPHIL % 0.1 % (0.0-2.0); EOSINOPHIL % 0.8 % (0-5); GRANULOCYTE % 65.4 % (42.2-75.2); HEMATOCRIT 31.3 % (42-52); MEAN CORPUSCULAR HGB 28.4 PG (27.0-31.0); MEAN CORPUSCULAR VOLUME 88.7 FL (80.0-94.0); MEAN PLATELET VOLUME 8.7 FL (7.4-10.4); PLATELET COUNT 121 /CUMM (130-400); RBC DISTRIBUTION WIDTH 14.5 % (11.5-14.5); RED BLOOD CELL CT 3.53 /CUMM (4.70-6.10); WHITE BLOOD CELL COUNT 5.4 /CUMM (4.8-10.8)
[2017-11-22 07:00] VITALS: BP 110/90
--- NOTE | 2017-11-22 07:38 | PN- Housestaff ---
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 He is alert awake and oriented to time place and person. No acute events noticed. Patient denies any further episodes of syncope, dizzy or lightheadedness. Denies loss of consciousness. No chest pain, short of breath, fever, chills, palpitations. Patient reports bilateral knee pain, 10 out of 10. Knee x-ray was reviewed, showing bilateral knee effusion and soft tissue swelling. Not allowing us to touch his knee. He couldn't raise his leg above the bed because of severe pain. Telemetry events noticed- uneventful Vitals afebrile, heart rate 80, respiratory 16, blood pressure 120/87, saturating at 97 on room air Review of Systems Constitutional: Reports: see HPI. Objective Last 24 Hrs of Vital Signs/I&O Vital Signs Date Time Temp Pulse Resp B/P B/P Pulse O2 O2 Flow FiO2 Mean Ox Delivery Rate 11/22 0932 98.7 64 24 110/90 11/22 0700 98.7 78 24 110/90 95 Room Air 11/22 0000 96 Room Air 11/22 0000 99.7 76 18 110/00 96 Room Air 11/21 2120 95 Room Air Room Air 11/21 1600 96 Room Air 11/21 1600 98.7 85 18 116/68 96 Room Air 11/21 1435 Room Air Intake & Output 11/22 1600 11/22 0800 11/22 0000 Intake Total 708 1180 Output Total 200 250 Balance 508 930 Intake, IV 468 460 Intake, Oral 240 720 Number 0 Bowel Movements Output, Stool 0 Output, Urine 200 250 Patient 130.748 kg Weight Weight Bed scale Measurement Method Physical Exam General Appearance: Alert, Oriented X3, Cooperative, No Acute Distress Other Physical Findings: Cardiovascular distant heart sounds, irregularly irregular rhythm, systolic 2/6 murmur Lungs Clear to Auscultation, Normal Air Movement Abdomen Normal Bowel Sounds, Soft, No Tenderness Neurological Normal Speech, Sensation Intact, patient was not allowing to do lower extremity neuro exam secondary to knee pain. Very tender to touch. Warmth over b/l knees and bilateral lower extremities. Extremities No Clubbing, No Cyanosis, 1+ BLE edema Current Medications: Current Medications Sig/Lissa Start time Last Medication Dose Route Stop Time Status Admin Acetaminophen 650 MG Q6P PRN 11/20 1715 AC PO Albuterol Sulfate 2 PUF Q4-6 PRN PRN 11/20 1830 AC INH Apixaban 5 MG BID 11/21 0900 AC 11/22 PO 0930 Aspirin Buffered 81 MG DAILY 11/21 1108 AC 11/22 PO 0930 Atorvastatin Calcium 20 MG 1700 11/21 1700 AC 11/21 PO 1646 Budesonide/ 2 PUF BID 11/20 2100 AC 11/22 Formoterol Fumarate INH 0931 Docusate Sodium 100 MG DAILY 11/21 0900 AC 11/22 PO 0942 Hydrocodone Bitart/ 1 TAB Q8P PRN 11/20 1730 AC 11/21 Acetaminophen PO 0515 Metoprolol Succinate 50 MG DAILY 11/22 0900 AC 11/22 PO 0932 Oxybutynin Chloride 5 MG TID 11/22 09 AC 11/22 PO 0929 Sertraline HCl 50 MG DAILY 11/20 1817 AC 11/22 PO 0932 Sodium Chloride 1,000 ML Q13H 11/21 1230 DC 11/21 IV 11/22 0129 1335 Last 24 Hrs of Lab/Harsh Results Last 24 Hrs of Labs/Mics: Laboratory Tests 11/22/17 0450: Anion Gap 10, Estimated GFR > 60, BUN/Creatinine Ratio 31.4 H, CBC w Diff NO MAN DIFF REQ, RBC 3.53 L, MCV 88.7, MCH 28.4, MCHC 32.0 L, RDW 14.5, MPV 8.7, Gran % 65.4, Lymphocytes % 20.0 L, Monocytes % 13.7 H, Eosinophils % 0.8, Basophils % 0.1, Absolute Granulocytes 3.6, Absolute Lymphocytes 1.1 L, Absolute Monocytes 0.7 H, Absolute Eosinophils 0, Absolute Basophils 0 Assessment/Plan Assessment: Patient is a 87-year-old male with an extensive past medical history significant for A. fib on eliqus, heart failure with reduced ejection fraction, mitral stenosis, prosthetic aortic valve, CAD status post CABG and aortic valve replacement, COPD/asthma, gout, osteoarthritis, psoriasis, HTN, HLD, OA, who presents after suffering an unwitnessed fall while at home. Vitals on admission: T 97.7, P 93, RR 16, BP 121/87, pulse ox 97% on room air Labs: CO2 31, BUN 28, glucose 118, lactic acid 2.2, T bili 1.4, creatinine kinase 213, TSH and free T4 normal, troponin 0.04, dirty UA with mucus, ketones, bacteria, epithelial cells echo May 2016 No obvious regional wall motion abnormalities. Normal left ventricular ejection fraction estimated at 55-60%. Left ventricular wall thickness increased. Lower extremity venous Doppler negative for DVT Arterial ultrasound lower extremity no peripheral arterial disease Head CT and cervical spine CT no acute abnormality was found Knee x-ray- Bilateral knee arthritis most notable in the medial compartments, left worse than right. No acute fracture or dislocation is seen. There are bilateral joint effusions and soft tissue swelling. Chest CT - Incidental note is made of a tiny 2 to 3 mm linear opacity within the left upper lobe of the lung, may represent atelectatic changes versus tiny nodule. carotid doppler- 1. 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 2. LEFT: Minimal, nonhemodynamically significant stenosis of the proximalleft internal carotid artery corresponding to a 0-49% stenosis by velocity criteria. 3. No evidence for hemodynamically significant stenosis in the external carotid arteries. Unwitnessed fall/questionable syncope patient presents after suffering an unwitnessed fall while at home. Patient is a poor historian and much of the history was obtained from his niece who participates in his care. Patient suffered a mechanical fall last week which was witnessed at an adult daycare center. He did not suffer any injuries that time. He was in his usual state of health until prior to admission he fell in his bathroom, he was able to crawl to bed however he continued to feel weak. He was found by his home health aide called 911. Patient states that he slipped and fell and that he lost consciousness He endorses lightheadedness preceding the fall. He denied any associated chest pain, shortness breath, vomiting, diaphoresis. * Tele hold in ICU * Continuous telemetry monitoring * Monitor vitals every shift * Serial troponin and EKG negative * EKG showed atrial fibrillation, rate under control no acute ST-T wave changes * No arrhythmias were found other than his atrial fibrillation * orthostatic vitals- didnt allow to do * Ruled out vasovagal syncope * No hypoglycemic episodes * No history of seizures * gentle IV hydration 1 bag NS * Physical therapy on board-recommended short-term rehabilitation * Shell Grader on board. * Patient has history of bioprosthetic aortic valve. Echocardiogram is pending. We'll evaluate for severity of aortic stenosis Generalized weakness Patient has generalized weakness. Physical therapy on board Recommended short-term rehabilitation B12 and thyroid numbers were normal Of note patient is getting vitamin D 50,000 international unit capsule every month and vitamin B12 injection every month Lactic acidosis Lactic acid 2.2 at the time of admission Resolved with gentle hydration Bilateral knee pain Patient reports 10 out of 10 bilateral knee pain, tender to touch. Bilateral knee x-ray was done which showed Bilateral knee arthritis most notable in the medial compartments, left worse than right. No acute fracture or dislocation is seen. There are bilateral joint effusions and soft tissue swelling. * He has no fever, leukocytosis. However given his history of psoriasis, being on adalimumab we cannot really rely on his fever or leukocytosis trend. Uric acid was 6.1. Less likely gout. * Most possibly bilateral knee osteoarthritis, end-stage, flare up from recent fall s/p crawling on the floor with his knees. * Orthopedic consult was recommended to rule out any septic joint. * We will continue Tylenol, Vicodin for pain management as needed Right carotid artery complete occlusion carotid doppler- 1. 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 2. LEFT: Minimal, nonhemodynamically significant stenosis of the proximalleft internal carotid artery corresponding to a 0-49% stenosis by velocity criteria. 3. No evidence for hemodynamically significant stenosis in the external carotid arteries. * Vascular surgery on board given his history of syncope and carotid occlusion * Family doesn't want any further escalation of care. Additionally in the setting of carotid occlusion no surgical intervention is recommended. * Recommended outpatient follow-up for surveillance of left internal carotid artery * Will continue baby aspirin Bruise back of left thigh Patient has Bruise on the back of his left thigh status post fall. The borders were marked and has remained stable. We'll continue to monitor H&H. Will get CAT scan of by if hemoglobin drops to look for any hematoma History of coronary artery disease continue baby aspirin Hyperlipidemia continue simvastatin History of atrial fibrillation continue eliqus 5 twice daily and metoprolol succinate 50 daily Hypertension continue metoprolol succinate with holding parameters Chronic heart failure with reduced ejection fraction Hold Lasix for now given syncopal episode Psoriasis gets adalimumab 40 mg injection every 2 weeks Asthma continue TRC nebs Overactive bladder continue oxybutynin Depression continue Zoloft Bedside swallow eval was passed Discussion was had over the phone with patient's niece Rose who is able to talk directly to the patient's sister/POA. As of this time that it was decided to be DNR/DNI and they also expressed a wish not to escalate care if the need should arise, with no ICU transfer or central line or pressors. Diet: Heart healthy diet DVT prophylaxis: Adrian Aquino CODE STATUS: DNR/DNI Problem List: 1. Weakness 2. Syncope and collapse 3. Dehydration Pain Ratin Pain Location: b/l knee Pain Goal: Remain pain free Pain Plan: tylenol Tomorrow's Labs & Rationales: cbc bep Bel GAO,Ángela 11/22/17 1523: Attending MD Review Statement Attending Statement Attending MD Statement: examined this patient, discuss w/resident/PA/SLIP COVER MAKER, agreed w/resident/PA/SLIP COVER MAKER, reviewed EMR data (avail), discussed with nursing, reviewed images Attending Assessment/Plan: 87-year-old male past medical history of A. fib on Eliquis, bioprosthetic aortic valve for aortic stenosis who is here with an unwitnessed fall and possible syncope. He has complete right carotid occlusion and was evaluated by surgery and right now no intervention is planned. My worry is that he's complaining of this lower extremity pain and knee pain. He appears to have more on the right side than on the left side although he has edema of both his lower extremities. He doesn't have a fever and doesn't have a white count, I don't think this is acute cellulitis but given the knee effusion ,the Eliquis and the pain ,I think he does deserve an orthopedic evaluation. If orthopedics is unrevealing then we 'll have to consider other etiologies for this lower extremity pain.
--- NOTE | 2017-11-22 08:23 | Cons- Vascular Surgery ---
General Information and HPI Consulting Request Date of Consult: 11/22/17 Requested By: Lela Cowart MD Reason for Consult: Syncope Source of Information: patient, old records Exam Limitations: poor historian History of Present Illness: 87-year-old male with multiple medical problems who was brought into the hospital with complaint of syncope. Patient is also reporting pain and discomfort when moving his lower extremities. He does recall the event and states that this is the first time occurred. He is currently being worked up for syncope and carotid ultrasonography demonstrates a R. carotid occlusion in addition to mild L. carotid stenosis. He denies any visual changes or aphasia. Allergies/Medications Allergies: Coded Allergies: No Known Allergies (06/23/17) Home Med List: Adalimumab (Humira Pen) 40 MG/0.8 ML PEN.IJ.KIT 40 MG SC Q2W PSORIASIS ( Reported) Albuterol Sulfate (Ventolin Hfa) 18 GM HFA.AER.AD 2 PUF INH Q4-6 PRN PRN ASTHMA (Reported) Albuterol Sulfate 2.5 MG/3 ML (0.083 %) VIAL.NEB 1 Vial INH/BILLIE TID PRN RESP. (Reported) Apixaban (Eliquis) 5 MG TABLET 5 MG PO Q12H AF Aspirin (Ecotrin*) 81 MG TABLET.DR 1 TAB PO DAILY HEART/BLOOD (Reported) Clotrimazole 1 % CREAM..G. 1 CED TOP QAMPM rash apply to affected area(s) Cyanocobalamin (Vitamin B-12) (Cyanocobalamin Injection) 1,000 MCG/ML VIAL 1 ML IM Q30D SUPPLEMENT (Reported) Docusate Sodium (Colace) 100 MG CAPSULE 1 CAP PO DAILY STOOL SOFTENER ( Reported) Ergocalciferol (Vitamin D2) (Vitamin D2) 50,000 UNIT CAPSULE 1 CAP PO Q30D SUPPLEMENT (Reported) Fluticasone/Salmeterol (Advair 250-50 Diskus) 250 MCG-50 MCG/DOSE BLST.W.DEV 1 PUF INH BID RESP. (Reported) Folic Acid 1 MG TABLET 1 TAB PO DAILY SUPPLEMENT (Reported) Furosemide 40 MG TABLET 1 TAB PO DAILY DIURETIC (Reported) Metoprolol Succinate 50 MG TAB.ER.24H 1 TAB PO DAILY HEART (Reported) Oxybutynin Chloride (Oxybutynin Chloride ER) (Unknown Strength) TAB.ER.24 ( Unknown Dose) PO DAILY UNKNOWN (Reported) Sennosides (Senna) 8.6 MG TABLET 2 TAB PO QHS GI (Reported) Sertraline HCl 50 MG TABLET 1 TAB PO DAILY DEPRESSION (Reported) Simvastatin (Simvastatin*) 40 MG TABLET 1 TAB PO QPM CHOLESTEROL (Reported) Tolterodine Tartrate (Detrol LA) 4 MG CAP.ER.24H 1 CAP PO DAILY BLADDER ( Reported) Triamcinolone Acetonide 0.1 % OINT...G. 1 CED TOP AD SKIN (Reported) Current Medications: Current Medications Sig/Lissa Start time Last Medication Dose Route Stop Time Status Admin Acetaminophen 650 MG Q6P PRN 11/20 1715 AC PO Albuterol Sulfate 2 PUF Q4-6 PRN PRN 11/20 1830 AC INH Apixaban 5 MG BID 11/21 0900 AC 11/21 PO 2036 Aspirin Buffered 81 MG DAILY 11/21 1108 AC 11/21 PO 1334 Atorvastatin Calcium 20 MG 1700 11/21 1700 AC 11/21 PO 1646 Budesonide/ 2 PUF BID 11/20 2100 AC 11/21 Formoterol Fumarate INH 2036 Docusate Sodium 100 MG DAILY 11/21 0900 AC 11/21 PO 0909 Hydrocodone Bitart/ 1 TAB Q8P PRN 11/20 1730 AC 11/21 Acetaminophen PO 0515 Metoprolol Succinate 50 MG DAILY 11/22 0900 AC PO Oxybutynin Chloride 5 MG TID 11/22 0900 AC PO Sertraline HCl 50 MG DAILY 11/20 1817 AC 11/21 PO 0909 Sodium Chloride 1,000 ML Q13H 11/21 1230 DC 11/21 IV 11/22 0129 1335 Sodium Chloride 1,000 ML Q13H 11/20 2115 DC 11/20 IV 11/21 1014 2352 Past History Medical History Blood Transfusion Hx: No Neurological: NONE EENT: PSORIASIS Cardiovascular: AFIB, CAD, mitral stenosis Respiratory: asthma Gastrointestinal: NONE Hepatic: NONE Renal: NONE Musculoskeletal: gout, OSTEOARTHRITIS Psychiatric: NONE Endocrine: NONE Blood Disorders: NONE Cancer(s): NONE 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 Home Who Do You Live With? self Services at Home: Home Health Aide, Nursing Primary Language: Kuwaiti Smoking Status: Never Smoked ETOH Use: former heavy use Illicit Drug Use: denies illicit drug use Functional Ability Ambulation: walker Review of Systems Review of Systems: Significant for bilateral lower extremity discomfort. Exam & Diagnostic Data Vital Signs and I&O Vital Signs Date Time Temp Pulse Resp B/P B/P Pulse O2 O2 Flow FiO2 Mean Ox Delivery Rate 11/22 0000 96 Room Air 11/22 0000 99.7 76 18 110/00 96 Room Air 11/21 2120 95 Room Air Room Air 11/21 1600 96 Room Air 11/21 1600 98.7 85 18 116/68 96 Room Air 11/21 1435 Room Air Intake & Output 11/22 1600 11/22 0800 11/22 0000 11/21 1600 11/21 0800 11/21 0000 Intake Total 708 1180 837 456 500 Output Total 200 250 475 200 Balance 508 930 362 456 300 Intake, IV 468 460 537 216 500 Intake, Oral 240 720 300 240 Number 0 1 Bowel Movements Output, Stool 0 Output, Urine 200 250 475 200 Patient 288 lb 274 lb Weight Weight Bed scale Bed scale Measurement Method Physical Exam: Bilateral lower extremities are perfused and warm. He does have pain on palpation. There is significant edema. There is no evidence of ischemia. It does appear to be weakness of both lower extremities. Last 24 Hours of Labs: Laboratory Tests 11/22 11/21 0450 1342 Chemistry Sodium (137 - 145 mmol/L) 138 Potassium (3.5 - 5.1 mmol/L) 3.9 Chloride (98 - 107 mmol/L) 103 Carbon Dioxide (22 - 30 mmol/L) 25 Anion Gap (5 - 16) 10 BUN (9 - 20 mg/dL) 22 H Creatinine (0.7 - 1.2 mg/dL) 0.7 Estimated GFR (>60 ml/min) > 60 BUN/Creatinine Ratio (7 - 25 %) 31.4 H Hematology CBC w Diff NO MAN DIFF REQ NO MAN DIFF REQ WBC (4.8 - 10.8 /CUMM) 5.4 6.3 RBC (4.70 - 6.10 /CUMM) 3.53 L 3.93 L Hgb (14.0 - 18.0 G/DL) 10.0 L 11.4 L Hct (42 - 52 %) 31.3 L 34.8 L MCV (80.0 - 94.0 FL) 88.7 88.5 MCH (27.0 - 31.0 PG) 28.4 28.9 MCHC (33.0 - 37.0 G/DL) 32.0 L 32.6 L RDW (11.5 - 14.5 %) 14.5 15.4 H Plt Count (130 - 400 /CUMM) 121 L 128 L MPV (7.4 - 10.4 FL) 8.7 8.9 Gran % (42.2 - 75.2 %) 65.4 68.6 Lymphocytes % (20.5 - 51.1 %) 20.0 L 15.4 L Monocytes % (1.7 - 9.3 %) 13.7 H 15.2 H Eosinophils % (0 - 5 %) 0.8 0.6 Basophils % (0.0 - 2.0 %) 0.1 0.2 Absolute Granulocytes (1.4 - 6.5 /CUMM) 3.6 4.3 Absolute Lymphocytes (1.2 - 3.4 /CUMM) 1.1 L 1.0 L Absolute Monocytes (0.10 - 0.60 /CUMM) 0.7 H 0.9 H Absolute Eosinophils (0.0 - 0.7 /CUMM) 0 0 Absolute Basophils (0.0 - 0.2 /CUMM) 0 0 Assessment/Plan Assessment/Plan 87-year-old male with a history of syncope and a carotid occlusion. 1.) It appears from the notes that the family does not want any further escalation of care-in the setting- Addiditionaly in the setting of a carotid occlusion no surgical intervention is warranted 2.) Would recommend neurology/neurosurgery evaluation for leg weakness 3.) Recommend antiplatelet/anticoagulation as per neurology/medical evaluation 4.) Continue care as per primary team. 5.) May follow up as outpatient for surveillance of the left ICA. Consult Acknowledgment - Thank you for your consult request.
--- NOTE | 2017-11-22 13:27 | PN- Cardiology ---
Subjective Subjective: No acute events. No complaints today. Monitor shows afib with good rate control 80-100, no episodes of sustained bradycardia or tahcycardia. Objective Vital Signs and I&Os Vital Signs Date Time Temp Pulse Resp B/P B/P Pulse O2 O2 Flow FiO2 Mean Ox Delivery Rate 11/22 0932 98.7 64 24 110/90 11/22 0700 98.7 78 24 110/90 95 Room Air 11/22 0000 96 Room Air 11/22 0000 99.7 76 18 110/00 96 Room Air 11/21 2120 95 Room Air Room Air 11/21 1600 96 Room Air 11/21 1600 98.7 85 18 116/68 96 Room Air 11/21 1435 Room Air Intake & Output 11/22 1600 11/22 0800 11/22 0000 11/21 1600 11/21 0800 11/21 0000 Intake Total 708 1180 837 456 500 Output Total 200 250 475 200 Balance 508 930 362 456 300 Intake, IV 468 460 537 216 500 Intake, Oral 240 720 300 240 Number 0 1 Bowel Movements Output, Stool 0 Output, Urine 200 250 475 200 Patient 288 lb 274 lb Weight Weight Bed scale Bed scale Measurement Method Physical Exam General Appearance: well developed/nourished, no apparent distress, alert, comfortable Neck: supple, trachea mid line (no JVD) Respiratory: normal breath sounds, lungs clear Cardiovascular: normal peripheral pulses, systolic murmur, irregularly irregular Abdomen: normal bowel sounds, soft, non-tender, no organomegaly Extremities: normal capillary refill, no edema Assessment/Plan Assessment/Plan Fall with possible loss of consciousness preceding... History of stenotic aortic valve bioprosthesis. dehydration resolved. echocardiogram to evaluate severity of aortic stenosis. maintain on telemetry. Continue telemetry? Yes
[2017-11-22 16:00] VITALS: BP 120/80
--- NOTE | 2017-11-22 19:05 | Discharge Summary ---
Visit Information Visit Dates Admission Date: 11/20/17 Discharge Date: 11/25/2017 Hospital Course Course Attending Physician: Primary Care Physician: Kat Alvarado APRN Hospital Course: Patient is a 87-year-old male with an extensive past medical history significant for A. fib on eliqus, heart failure with reduced ejection fraction, mitral stenosis, prosthetic aortic valve, CAD status post CABG and aortic valve replacement, COPD/asthma, gout, osteoarthritis, psoriasis, HTN, HLD, OA, presented after suffering an unwitnessed fall while at home. Vitals on admission: T 97.7, P 93, RR 16, BP 121/87, pulse ox 97% on room air Labs: CO2 31, BUN 28, glucose 118, lactic acid 2.2, T bili 1.4, creatinine kinase 213, TSH and free T4 normal, troponin 0.04, dirty UA with mucus, ketones, bacteria, epithelial cells Echo May 2016 No obvious regional wall motion abnormalities. Normal left ventricular ejection fraction estimated at 55-60%. Left ventricular wall thickness increased. Lower extremity venous Doppler negative for DVT Arterial ultrasound lower extremity no peripheral arterial disease Head CT and cervical spine CT no acute abnormality was found Knee x-ray- Bilateral knee arthritis most notable in the medial compartments, left worse than right. No acute fracture or dislocation is seen. There are bilateral joint effusions and soft tissue swelling. Chest CT - Incidental note is made of a tiny 2 to 3 mm linear opacity within the left upper lobe of the lung, may represent atelectatic changes versus tiny nodule. Carotid doppler- 1. 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 2. LEFT: Minimal, nonhemodynamically significant stenosis of the proximalleft internal carotid artery corresponding to a 0-49% stenosis by velocity criteria. 3. No evidence for hemodynamically significant stenosis in the external carotid arteries. #Unwitnessed fall/questionable syncope: The patient presented after suffering an unwitnessed fall while at home. Patient is a poor historian and much of the history was obtained from his niece who participates in his care. Patient suffered a mechanical fall last week which was witnessed at an adult daycare center. He did not suffer any injuries that time. He was in his usual state of health until prior to admission he fell in his bathroom, he was able to crawl to bed however he continued to feel weak. He was found by his home health aide called 911. Patient stated that he slipped and fell and that he lost consciousness He endorsed lightheadedness preceding the fall. He denied any associated chest pain, shortness breath, vomiting, diaphoresis. He was monitored on telemetry. No arrhythmia expect baseline atrial fibrillation. Vitals remained stable throughout the hospital stay. Serial troponin and EKG were negative. EKG showed atrial fibrillation, rate under control, no acute ST-T wave changes. #Generalized weakness: Physical therapy consult was placed who recommended short -term rehabilitation. B12 and thyroid numbers were normal. Of note patient is on vitamin D 50,000 international unit capsule every month and vitamin B12 injection every month as an outpatient. #Lactic acidosis: Lactic acid 2.2 at the time of admission which resolved with gentle hydration. #Bilateral knee pain: Patient reported 10 out of 10 bilateral knee pain, tender to touch. Bilateral knee x-ray was done which showed Bilateral knee arthritis most notable in the medial compartments, left worse than right. No acute fracture or dislocation is seen. There are bilateral joint effusions and soft tissue swelling.He has no fever, leukocytosis. However given his history of psoriasis, being on adalimumab we cannot really rely on his fever or leukocytosis trend. Uric acid was 6.1. Less likely gout. Most possibly bilateral knee osteoarthritis, end-stage, flare up from recent fall s/p crawling on the floor with his knees. Orthopedic consult was recommended to rule out any septic joint. continued Tylenol scheduled for pain management. The patient underwent arthrocentesis on 11/23/2017, which revealed hemarthrosis, samples were sent for cultures(negative), crystals, and cell count. 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 They recommended Gait training with a walker (WBA T). #Hemarthrosis: Noted per patient underwent bilateral arthrocentesis, both cardiology and neurology were consulted and were in agreement to stop anticoagulation(Apixaban) and maintain the patient on aspirin only. #Right carotid artery complete occlusion: carotid doppler- 1. 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 2. LEFT: Minimal, nonhemodynamically significant stenosis of the proximalleft internal carotid artery corresponding to a 0-49% stenosis by velocity criteria. 3. No evidence for hemodynamically significant stenosis in the external carotid arteries. Vascular surgery was consulted given his history of syncope and carotid occlusion. Family doesn't want any further escalation of care. Additionally in the setting of carotid occlusion no surgical intervention is recommended. Recommended outpatient follow-up for surveillance of left internal carotid artery #Bruise back of left thigh: Patient has Bruise on the back of his left thigh status post fall. The borders were marked and has remained stable. continued to monitor H&H. #History of coronary artery disease Continued baby aspirin #Hyperlipidemia: Continued on statin #History of atrial fibrillation: Discontinued apixaban as above. Continued metoprolol succinate 50 daily #Hypertension: Continued metoprolol succinate with holding parameters Chronic heart failure with reduced ejection fraction: Initially Lasix was held given syncopal episode. The patient was restarted on Lasix 20 mg twice a day per cardiology recommendations on 11/24/2017. #Psoriasis: On adalimumab 40 mg injection every 2 weeks #Overactive bladder: Continued oxybutynin #Depression: Continued Zoloft Allergies: Coded Allergies: No Known Allergies (06/23/17) Significant Procedures: Arthrocentesis on 11/23/2017, ruled out joint. Echocardiogram 11/21/2017: FINDINGS Left Ventricle LVH, no regional wall motion abnormalities. apex not well visualized. EF estimated 55%. Right Ventricle normal size and function. Right Atrium normal dimension. Left Atrium At least moderately dilated. interatrial septum not well visualized but no apparent PFO. Mitral Valve calcification of annulus and leaflets. good excursion of leaflets. minimal gradient across mitral valve. trace MR. Aortic Valve Sclerosis without significant stenosis, no significant transaortic gradient. No leak visualized with limitation of poor view. Tricuspid Valve normal morphologhy, no TR appreciated. Pulmonic Valve Normal morphology, no AL appreciated. Pericardium no pericardial effusion. Great Vessels visualized segments appear normal. CONCLUSIONS LVH, no regional wall motion abnormalities. [place] not well visualized. EF estimated 55%. Normal size and function of right ventricle. At least moderately dilated left atrium. severe calcification of mitral annulus and leaflets. Good excursion of mitral leaflets. Minimal gradient across mitral valve. trace MR. aortic valve sclerosis without significant stenosis, no significant transaortic gradient. Martha Purdy M.D. (Electronically Signed) Final Date: 22 November 2017 Carotid Doppler ultrasound:11/21/17 FINDINGS: Right side: 1. Severe amount of heterogeneous plaque is seen in the ECA/ICA region. 2. The common carotid artery velocity is 94 cm/s. 3. The internal carotid artery velocities is not present consistent with complete occlusion. 4. The external carotid artery velocity is 50 cm/s. Left side: 1. Moderate amount of heterogeneous plaque is seen in the ECA/ICA region. 2. The common carotid artery velocity is 48 cm/s. 3. The internal carotid artery velocities are 66 cm/s systolic and 18 cm/s diastolic. 4. The external carotid artery velocity is 134 cm/s. ADDITIONAL FINDINGS: 1. The vertebral arteries show antegrade flow. 2. There is an arrhythmia present. IMPRESSION: 1. 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 2. LEFT: Minimal, nonhemodynamically significant stenosis of the proximal left internal carotid artery corresponding to a 0-49% stenosis by velocity criteria. 3. No evidence for hemodynamically significant stenosis in the external carotid arteries. Pertinent Lab Results: Arterial Doppler IMPRESSION: There is no evidence of any hemodynamically significant lower extremity arterial disease rest. Greater sensitivity and specificity can be obtained with pre-and post exercise PVRs with TESFAYE calculations. ---- FINDINGS: Right knee: Moderate to large knee effusion. Moderate chronic medial compartment narrowing with tricompartmental osteophyte formation and chronic superior subluxation of the patella. No acute fracture or dislocation is seen. There is moderate soft tissue swelling. Vascular calcifications are present. Left knee: Moderate knee joint effusion. Severe chronic medial compartment narrowing, with tricompartmental degenerative changes and superior patellar subluxation, chronic. No acute fracture or acute dislocation is seen. There is soft tissue swelling and vascular calcification seen. IMPRESSION: Bilateral knee arthritis most notable in the medial compartments, left worse than right. No acute fracture or dislocation is seen. There are bilateral joint effusions and soft tissue swelling. head CT and cervical spine CT IMPRESSION: 1. No acute intracranial pathology. 2. No CT evidence of any acute fracture no subluxation or dislocation or prespinal soft tissue hematoma present at the cervical spine. 3. No significant change since most recent prior CT of the head and cervical spine dated 09/10/2015. Specifically, no CT evidence of any acute intracranial hemorrhage is seen. IMPRESSION: 1. No acute intrathoracic, intra-abdominal and/or intrapelvic pathology is identified on this nonenhanced study. Specifically, no CT evidence of any hematoma identified within the chest abdomen and pelvis. 2. Incidental note is made of a tiny 2 to 3 mm linear opacity within the left upper lobe of the lung, may represent atelectatic changes versus tiny nodule. 3. Multiple right and solitary left renal focal abnormalities are identified, as described above, not optimally characterized. Follow-up nonemergent bilateral renal ultrasound is recommended for further clarification. According to the UPDATED 2017 Fleischner Society recommendations, the advised follow-up imaging for solid nodules < 6 mm is: LOW RISK PATIENT: No routine follow-up. HIGH RISK PATIENT: Optional CT at 12 months. --- Laboratory Tests 11/24 0615 Chemistry Sodium (137 - 145 mmol/L) 135 L Potassium (3.5 - 5.1 mmol/L) 4.3 Chloride (98 - 107 mmol/L) 98 Carbon Dioxide (22 - 30 mmol/L) 28 Anion Gap (5 - 16) 9 BUN (9 - 20 mg/dL) 20 Creatinine (0.7 - 1.2 mg/dL) 0.8 Estimated GFR (>60 ml/min) > 60 BUN/Creatinine Ratio (7 - 25 %) 25.0 Magnesium (1.6 - 2.3 mg/dL) 2.2 Hematology CBC w Diff NO MAN DIFF REQ WBC (4.8 - 10.8 /CUMM) 5.4 RBC (4.70 - 6.10 /CUMM) 3.40 L Hgb (14.0 - 18.0 G/DL) 10.1 L Hct (42 - 52 %) 30.2 L MCV (80.0 - 94.0 FL) 88.7 MCH (27.0 - 31.0 PG) 29.5 MCHC (33.0 - 37.0 G/DL) 33.3 RDW (11.5 - 14.5 %) 14.5 Plt Count (130 - 400 /CUMM) 154 MPV (7.4 - 10.4 FL) 9.6 Gran % (42.2 - 75.2 %) 70.1 Lymphocytes % (20.5 - 51.1 %) 17.3 L Monocytes % (1.7 - 9.3 %) 10.8 H Eosinophils % (0 - 5 %) 1.2 Basophils % (0.0 - 2.0 %) 0.6 Absolute Granulocytes (1.4 - 6.5 /CUMM) 3.8 Absolute Lymphocytes (1.2 - 3.4 /CUMM) 0.9 L Absolute Monocytes (0.10 - 0.60 /CUMM) 0.6 Absolute Eosinophils (0.0 - 0.7 /CUMM) 0.1 Absolute Basophils (0.0 - 0.2 /CUMM) 0 Disposition Summary Disposition Principal Diagnosis: Syncope Generalized weakness 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 -Please follow up with vascular surgeon, Dr. Levy in 1 week after discharge. -Please follow-up with transportation technician, Dr. Purdy in 1 week after discharge. -Please follow-up with orthopedics Dr. Rivera in 1 week after discharge. -Please follow up with Neurologist, Dr. Sanabria in 1 week after discharge. Medications at Discharge Discharge Medications: Stop taking the following medications: Magnesium Oxide (Magnesium Oxide) 400 MG TABLET ORAL DAILY Qty = 4 Apixaban (Eliquis) 5 MG TABLET ORAL Q12H Days = 30 Furosemide (Furosemide) 40 MG TABLET ORAL DAILY Qty = 90 Lanolin Alcohol/Mo/W.pet/[place] (Eucerin Creme) 454 GM CREAM..G. On the skin as needed for SKIN Fesoterodine Fumarate (Toviaz) 4 MG TAB.ER.24H ORAL DAILY Continue taking these medications: Aspirin (Ecotrin*) 81 MG TABLET. 1 Tablet ORAL DAILY Comments: Last Taken:11/25/17 Time:8 AM Simvastatin (Simvastatin*) 40 MG TABLET 1 Tablet ORAL Every night Comments: Last Taken:11/25/17 Time:3 PM Folic Acid (Folic Acid) 1 MG TABLET 1 Tablet ORAL DAILY Comments: Last Taken:NOT GIVEN IN HOSPITAL Time: Fluticasone/Salmeterol (Advair 250-50 Diskus) 250 MCG-50 MCG/DOSE BLST.W.DEV 1 Puff Inhale through mouth TWICE DAILY Comments: Last Taken:11/25/17 Time:8 AM SYMBICORT GIVEN IN THE HOSPITAL Albuterol Sulfate (Ventolin Hfa) 18 GM HFA.AER.AD 2 Puff Inhale through mouth EVERY 4-6 HOURS NEEDED as needed for ASTHMA Comments: Last Taken:10/18/16 Time: 9:25A.M Metoprolol Succinate (Metoprolol Succinate) 50 MG TAB.ER.24H 1 Tablet ORAL DAILY Comments: Last Taken:11/25/17 Time:8 AM Adalimumab (Humira Pen) 40 MG/0.8 ML PEN.IJ.KIT 40 Milligram Inject into fatty tissue EVERY 2 WEEKS Qty = 4 Cyanocobalamin (Vitamin B-12) (Cyanocobalamin Injection) 1,000 MCG/ML VIAL 1 Milliliters INTRAMUSC ONCE A MONTH Comments: Last Taken:NOT GIVEN IN THE HOSPITAL Time: Sertraline HCl (Sertraline HCl) 50 MG TABLET 1 Tablet ORAL DAILY Qty = 30 Comments: Last Taken:11/25/17 Time:8 AM Clotrimazole (Clotrimazole) 1 % CREAM..G. 1 Application On the skin Every Morning-Night Qty = 15 Instructions: apply to affected area(s) Comments: Last Taken:NOT GIVEN IN THE HOSPITAL Time: Albuterol Sulfate (Albuterol Sulfate) 2.5 MG/3 ML (0.083 %) VIAL.NEB 1 Vial Inhale Solution THREE TIMES DAILY as needed for RESP. Comments: Last Taken:NOT GIVEN IN THE HOSPITAL Time: Docusate Sodium (Colace) 100 MG CAPSULE 1 Capsule ORAL DAILY Comments: Last Taken:11/25/17 Time:8 AM Sennosides (Senna) 8.6 MG TABLET 2 Tablet ORAL TAKE AT BEDTIME Comments: Last Taken:NOT GIVEN IN THE HOSPITAL Time: Triamcinolone Acetonide (Triamcinolone Acetonide) 0.1 % OINT...G. 1 Application On the skin As Directed Comments: Last Taken:NOT GIVEN IN THE HOSPITAL Time: Ergocalciferol (Vitamin D2) (Vitamin D2) 50,000 UNIT CAPSULE 1 Capsule ORAL ONCE A MONTH Comments: Last Taken:NOT GIVEN IN THE HOSPITAL Time: Tolterodine Tartrate (Detrol LA) 4 MG CAP.ER.24H 1 Capsule ORAL DAILY Comments: Last Taken:NOT GIVN IN THE HOSPITAL Time: Oxybutynin Chloride (Oxybutynin Chloride ER) 15 MG TAB.ER.24 1 Tablet ORAL DAILY Qty = 30 Comments: Last Taken:11/25/17 Time:1 PM Start taking the following new medications: Acetaminophen (Tylenol) 325 MG TABLET 2 Tablet ORAL EVERY SIX HOURS Qty = 40 No Refills Comments: Last Taken:11/25/17 Time:12 NOON Furosemide (Furosemide) 20 MG TABLET 1 Tablet ORAL 7:30AM & 4:30PM Qty = 60 No Refills Comments: Last Taken:11/25/17 Time:3 PM Copies To: Kat Alvarado APRN Attending MD Review Statement Documenting Attending: Jessica GAO,Jason
--- NOTE | 2017-11-22 20:32 | ECHOCARDIOGRAM REPORT ---
LIZ PARSON Age: 87 : 1930 Gender: M Exam Date: 11/21/2017 11:50 Exam Location: [facility] Ht (in): 71 Wt (lb): 274 BSA: 2.54 BP: 142 / 76 Ordering Physician: Matt Zelaya MD Referring Physician: Matt Zelaya MD Technologist: Jermaine Teresa [facility] Room Number: 108-1 Indications: PRESYNCOPE/SYNCOPE Rhythm: Atrial fibrillation Technical Quality: technically difficult FINDINGS Left Ventricle LVH, no regional wall motion abnormalities. apex not well visualized. EF estimated 55%. Right Ventricle normal size and function. Right Atrium normal dimension. Left Atrium At least moderately dilated. interatrial septum not well visualized but no apparent PFO. Mitral Valve calcification of annulus and leaflets. good excursion of leaflets. minimal gradient across mitral valve. trace MR. Aortic Valve Sclerosis without significant stenosis, no significant transaortic gradient. No leak visualized with limitation of poor view. Tricuspid Valve normal morphologhy, no TR appreciated. Pulmonic Valve Normal morphology, no RI appreciated. Pericardium no pericardial effusion. Great Vessels visualized segments appear normal. CONCLUSIONS LVH, no regional wall motion abnormalities. [place] not well visualized. EF estimated 55%. Normal size and function of right ventricle. At least moderately dilated left atrium. severe calcification of mitral annulus and leaflets. Good excursion of mitral leaflets. Minimal gradient across mitral valve. trace MR. aortic valve sclerosis without significant stenosis, no significant transaortic gradient. Martha Purdy M.D. (Electronically Signed) Final Date: 22 November 2017 20:31 MEASUREMENTS (Male / Female) Normal Values DOPPLER AV Peak Velocity 141.0 cm/s AV Peak Gradient 8.0 mmHg LVOT Peak Velocity 116.0 cm/s LVOT Peak Gradient 5.4 mmHg MV Peak Velocity 165.0 cm/s MV Peak Gradient 10.9 mmHg MV Mean Velocity 88.3 cm/s MV Mean Gradient 4.0 mmHg
[2017-11-23] VITALS: BP 166/64
[2017-11-23 01:33] VITALS: BP 122/60
[2017-11-23 05:54] VITALS: BP 110/62
[2017-11-23 08:19] LABS: ABSOLUTE BASOPHIL COUNT 0 /CUMM (0.0-0.2); ABSOLUTE EOSINOPHIL COUNT 0.1 /CUMM (0.0-0.7); ABSOLUTE GRANULOCYTE CT 3.1 /CUMM (1.4-6.5); ABSOLUTE LYMPH COUNT 1.2 /CUMM (1.2-3.4); ABSOLUTE MONOCYTE COUNT 0.7 /CUMM (0.10-0.60); BASOPHIL % 0.5 % (0.0-2.0); EOSINOPHIL % 1.5 % (0-5); GRANULOCYTE % 61.7 % (42.2-75.2); HEMATOCRIT 31.1 % (42-52); MEAN CORPUSCULAR HGB 29.2 PG (27.0-31.0); MEAN CORPUSCULAR HGB CONC 32.7 G/DL (33.0-37.0); MEAN CORPUSCULAR VOLUME 89.2 FL (80.0-94.0); MEAN PLATELET VOLUME 9.1 FL (7.4-10.4); PLATELET COUNT 134 /CUMM (130-400); RBC DISTRIBUTION WIDTH 15.1 % (11.5-14.5); RED BLOOD CELL CT 3.49 /CUMM (4.70-6.10)
--- NOTE | 2017-11-23 09:50 | Cons- Orthopedic ---
General Information and HPI Consulting Request Date of Consult: 11/23/17 Requested By: Lela Cowart MD History of Present Illness: 87 yr old male with bilateral knee pain and effusions s/p fall d/t syncopal episode. patient is poor historian. x-rays of bilateral knees show extensive djd /oa. no fracture no dislocation. states has extreme pain with motion. patient is on eliquis. Allergies/Medications Allergies: Coded Allergies: No Known Allergies (06/23/17) Home Med List: Adalimumab (Humira Pen) 40 MG/0.8 ML PEN.IJ.KIT 40 MG SC Q2W PSORIASIS ( Reported) Albuterol Sulfate (Ventolin Hfa) 18 GM HFA.AER.AD 2 PUF INH Q4-6 PRN PRN ASTHMA (Reported) Albuterol Sulfate 2.5 MG/3 ML (0.083 %) VIAL.NEB 1 Vial INH/BILLIE TID PRN RESP. (Reported) Apixaban (Eliquis) 5 MG TABLET 5 MG PO Q12H AF Aspirin (Ecotrin*) 81 MG TABLET.DR 1 TAB PO DAILY HEART/BLOOD (Reported) Clotrimazole 1 % CREAM..G. 1 CED TOP QAMPM rash apply to affected area(s) Cyanocobalamin (Vitamin B-12) (Cyanocobalamin Injection) 1,000 MCG/ML VIAL 1 ML IM Q30D SUPPLEMENT (Reported) Docusate Sodium (Colace) 100 MG CAPSULE 1 CAP PO DAILY STOOL SOFTENER ( Reported) Ergocalciferol (Vitamin D2) (Vitamin D2) 50,000 UNIT CAPSULE 1 CAP PO Q30D SUPPLEMENT (Reported) Fluticasone/Salmeterol (Advair 250-50 Diskus) 250 MCG-50 MCG/DOSE BLST.W.DEV 1 PUF INH BID RESP. (Reported) Folic Acid 1 MG TABLET 1 TAB PO DAILY SUPPLEMENT (Reported) Furosemide 40 MG TABLET 1 TAB PO DAILY DIURETIC (Reported) Metoprolol Succinate 50 MG TAB.ER.24H 1 TAB PO DAILY HEART (Reported) Oxybutynin Chloride (Oxybutynin Chloride ER) (Unknown Strength) TAB.ER.24 ( Unknown Dose) PO DAILY UNKNOWN (Reported) Sennosides (Senna) 8.6 MG TABLET 2 TAB PO QHS GI (Reported) Sertraline HCl 50 MG TABLET 1 TAB PO DAILY DEPRESSION (Reported) Simvastatin (Simvastatin*) 40 MG TABLET 1 TAB PO QPM CHOLESTEROL (Reported) Tolterodine Tartrate (Detrol LA) 4 MG CAP.ER.24H 1 CAP PO DAILY BLADDER ( Reported) Triamcinolone Acetonide 0.1 % OINT...G. 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 Home Who Do You Live With? self Services at Home: Home Health Aide, Nursing Primary Language: [place] Smoking Status: Never Smoked ETOH Use: former heavy use Illicit Drug Use: denies illicit drug use Functional Ability Ambulation: walker Review of Systems Review of Systems: see chart Exam & Diagnostic Data Vital Signs and I&O Vital Signs Date Time Temp Pulse Resp B/P B/P Pulse O2 O2 Flow FiO2 Mean Ox Delivery Rate 11/23 0554 98.2 74 20 110/62 97 Room Air 11/23 0133 98.3 76 20 122/60 97 Room Air 11/23 0000 94 Room Air 11/23 0000 98.7 70 18 166/64 94 Room Air 11/22 1600 100.1 80 19 120/80 93 Room Air Intake & Output 11/23 1600 11/23 0800 11/23 0000 11/22 1600 11/22 0800 11/22 0000 Intake Total 176 800 5132 708 1180 Output Total 300 450 450 200 250 Balance -190 -210 900 508 930 Intake, IV 10 750 468 460 Intake, Oral 100 240 600 240 720 Number 0 Bowel Movements Output, Stool 0 Output, Urine 300 450 450 200 250 Patient 273 lb 288 lb Weight Weight Bed scale Measurement Method Physical Exam: +2 effusion of bilateral knees. no warmth no erythema of bilateral knees. full extension of bilateral knees. unable to flex bilateral knees d/t pain. bilateral knees aspirated and with 60cc of sanguinous fluid on right and 60cc of serosanguious fluid aspirated on left. x-rays of bilateral knees show djd/oa. no fractures noted. Assessment/Plan Assessment/Plan bilateral knee effusions bilateral knee djd/oa -wbat with walker -synovial fluid sent for culture, crystals and cell count -patient has no signs of infection in bilateral knees. most likely effusions coming from djd/oa and trauma especially in presence of hemearthrosis and patient on eliquis Consult Acknowledgment - Thank you for your consult request.
--- NOTE | 2017-11-23 13:42 | PN- Housestaff ---
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 He underwent bilateral knee joint arthrocentesis this morning which revealed sanguinous fluid. Reports pain at the location of arthrocentesis, mentions that now he can move his left toe. Denies any headache, n/v/dizziness, lightheadedness, CP, SOB. VSS. Review of Systems Constitutional: Denies: chills, diaphoresis, fever, malaise, weakness, unexplained weight loss. Objective Last 24 Hrs of Vital Signs/I&O Vital Signs Date Time Temp Pulse Resp B/P B/P Pulse O2 O2 Flow FiO2 Mean Ox Delivery Rate 11/23 1527 98.0 95 20 110/60 98 Room Air 11/23 1423 Room Air 11/23 1357 82 116/70 11/23 0554 98.2 74 20 110/62 97 Room Air 11/23 0133 98.3 76 20 122/60 97 Room Air 11/23 0000 94 Room Air 11/23 0000 98.7 70 18 166/64 94 Room Air Intake & Output 11/23 1600 11/23 0800 11/23 0000 Intake Total 480 110 240 Output Total 700 300 450 Balance -220 -190 -210 Intake, IV 10 Intake, Oral 480 100 240 Output, Urine 700 300 450 Patient 273 lb Weight Physical Exam General Appearance: Alert, Oriented X3, Cooperative, No Acute Distress Skin: No Rashes HEENT: Atraumatic, PERRLA, EOMI, Mucous Membr. moist/pink Neck: Supple Lymphatic: Cervical nl Cardiovascular: Irregularly irregular Lungs: Clear to Auscultation, Normal Air Movement Abdomen: Normal Bowel Sounds, Soft, No Tenderness, No Hepatospenomegaly, No Masses Neurological: Normal Speech, Normal Tone, ROM, strength intact in UE, unable to test LEs given severe pain Extremities: b/l LE edema, knees tenderness to palpation Vascular: Pulses Symmetrical Current Medications: Current Medications Sig/Lissa Start time Last Medication Dose Route Stop Time Status Admin Acetaminophen 650 MG Q6P PRN 11/20 1715 AC PO Albuterol Sulfate 2 PUF Q4-6 PRN PRN 11/20 1830 AC INH Apixaban 5 MG BID 11/21 0900 DC 11/22 PO 2127 Aspirin Buffered 81 MG DAILY 11/21 1108 AC 11/23 PO 1037 Atorvastatin Calcium 20 MG 1700 11/21 1700 AC 11/23 PO 1722 Budesonide/ 2 PUF BID 11/20 2100 AC 11/23 Formoterol Fumarate INH 1043 Docusate Sodium 100 MG DAILY 11/21 0900 AC 11/23 PO 1037 Hydrocodone Bitart/ 1 TAB Q8P PRN 11/20 1730 AC 11/23 Acetaminophen PO 1036 Metoprolol Succinate 50 MG DAILY 11/22 0900 AC 11/23 PO 1357 Oxybutynin Chloride 5 MG TID 11/22 0900 AC 11/23 PO 1357 Sertraline HCl 50 MG DAILY 11/20 1817 AC 11/23 PO 1037 Last 24 Hrs of Lab/Harsh Results Last 24 Hrs of Labs/Mics: Laboratory Tests 11/23/17 0915: Lymphocytes 4, % Normal PMNs 86, Misc Hematology Test 9, Fluid WBC 6336 H, Fld Total RBCs Counted [id number] H 11/23/17 09: Lymphocytes 1, % Normal PMNs 92, Misc Hematology Test 7, Fluid WBC 3608 H, Fld Total RBCs Counted 72004 H, Sodium Urate Crystals RARE 11/23/17 0706: Anion Gap 7, Estimated GFR > 60, BUN/Creatinine Ratio 23.8, CBC w Diff NO MAN DIFF REQ, RBC 3.49 L, MCV 89.2, MCH 29.2, MCHC 32.7 L, RDW 15.1 H, MPV 9.1, Gran % 61.7, Lymphocytes % 23.0, Monocytes % 13.3 H, Eosinophils % 1.5, Basophils % 0.5, Absolute Granulocytes 3.1, Absolute Lymphocytes 1.2, Absolute Monocytes 0.7 H, Absolute Eosinophils 0.1, Absolute Basophils 0 Microbiology 11/23 1320 BLOOD: Blood Culture - RECD 11/23 1300 BLOOD: Blood Culture - RECD 11/23 914 BODY FLUID: Body Fluid Culture - RES 11/23 914 BODY FLUID: Gram Stain - RES 11/23 914 BODY FLUID: Body Fluid Culture - RES 11/23 914 BODY FLUID: Gram Stain - RES Assessment/Plan Assessment: This is a 87-year-old male with past medical history significant for A. fib on apixaban, heart failure with reduced ejection fraction, mitral stenosis, prosthetic aortic valve, CAD status post CABG and aortic valve replacement, COPD /asthma, gout, osteoarthritis, psoriasis, HTN, HLD, OA, who presents after suffering an unwitnessed fall while at home. #Unwitnessed fall/questionable syncope: Patient is a poor historian and much of the history was obtained from his niece on admission who participates in his care. 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 * Per cardio stop apixaban for 24 hours now that sanguinus fluid noted on joint aspiration. * Patient has history of bioprosthetic aortic valve. Echocardiogram is pending. #Generalized weakness: * c/w PT #Bilateral knee pain: * No fever, leukocytosis. However history of psoriasis, on adalimumab * Uric acid was 6.1. Less likely gout. * Most possibly bilateral knee osteoarthritis, end-stage, flare up from recent fall * Knee joint aspiration revealed bilateral sanguinous fluid. * Orthopedic consult appreciated; follow recs * Per cardio hold apixaban until 9pm tomorrow. * Neuro recs to stop AC all together; will consult cardio regarding this tomorrow. * c/w current pain mx regimen #Right carotid artery complete occlusion carotid doppler- 1. 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 2. LEFT: Minimal, nonhemodynamically significant stenosis of the proximalleft internal carotid artery corresponding to a 0-49% stenosis by velocity criteria. 3. No evidence for hemodynamically significant stenosis in the external carotid arteries. * Vascular surgery following. * Family doesn't want any further escalation of care. Additionally in the setting of carotid occlusion no surgical intervention is recommended. * Recommended outpatient follow-up for surveillance of left internal carotid artery * Will continue baby aspirin #Bruise back of left thigh Patient has Bruise on the back of his left thigh status post fall. The borders were marked and has remained stable. We'll continue to monitor H&H. Will get CAT scan of by if hemoglobin drops to look for any hematoma #History of coronary artery disease * Continue baby aspirin #Hyperlipidemia * continue simvastatin #History of atrial fibrillation * c/w metoprolol succinate 50 daily * apixaban on hold as above. #Hypertension: * continue metoprolol succinate with holding parameters #Chronic heart failure with reduced ejection fraction * Hold Lasix for now given syncopal episode #Psoriasis * On adalimumab 40 mg injection every 2 weeks #Overactive bladder: * continue oxybutynin #Depression: * continue Zoloft Problem List: 1. Syncope and collapse 2. Weakness Pain Ratin Pain Location: knees Pain Goal: Pain 4 or less Pain Plan: PRN ordered meds Tomorrow's Labs & Rationales: CBC to monitor H&H BEP to monitor electrolytes Jason Lopez 11/23/17 1410: Attending MD Review Statement Attending Statement Attending MD Statement: examined this patient, discuss w/resident/PA/LEGAL INSTRUMENTS EXAMINER, agreed w/resident/PA/LEGAL INSTRUMENTS EXAMINER, discussed with family, reviewed EMR data (avail), discussed with nursing, discussed with case mgmt, reviewed images, amended to note Attending Assessment/Plan: 87-year-old male past medical history of A. fib on Eliquis, bioprosthetic aortic valve for aortic stenosis who is here with an unwitnessed fall and possible syncope. He has complete right carotid occlusion and was evaluated by vascalar surgery and right now no intervention is planned. B/L Lower extremity knee pain and knee effusion 2/2 DJD/OA. Orthopedics consulted and s/p arthorcentesis from both knees. (bloody tap possible traumatic or possible hemarthrosis). Provide pain control. PO vicodin. ELiquis resume if ok with orthopedics. Cardiology consulted for possible syncope. ECHO with mild to moderate valvular abnormalities. Afib rate controlled on eliquis. Follow cardiology and orthopedics. PT recommend STR discharge to [place].
--- NOTE | 2017-11-23 14:43 | Cons- Neurology ---
General Information and HPI Consulting Request Date of Consult: 11/23/17 Requested By: Lela Cowart MD Reason for Consult: Syncope in patient on Eliquis Source of Information: old records Exam Limitations: unable to give history History of Present Illness: Consultation received this AM on 87 year old intellectually challenged male admitted several days ago after a fall at home. No specific hx of the event available, but he did have a mechanical fall a week earlier at an adult day care center. He gives no history, doesn't even recall why he is in the hospital. Syncope was in the differential diagnosis on the admitting H&P Allergies/Medications Allergies: Coded Allergies: No Known Allergies (06/23/17) Home Med List: Adalimumab (Humira Pen) 40 MG/0.8 ML PEN.IJ.KIT 40 MG SC Q2W PSORIASIS ( Reported) Albuterol Sulfate (Ventolin Hfa) 18 GM HFA.AER.AD 2 PUF INH Q4-6 PRN PRN ASTHMA (Reported) Albuterol Sulfate 2.5 MG/3 ML (0.083 %) VIAL.NEB 1 Vial INH/BILLIE TID PRN RESP. (Reported) Apixaban (Eliquis) 5 MG TABLET 5 MG PO Q12H AF Aspirin (Ecotrin*) 81 MG TABLET.DR 1 TAB PO DAILY HEART/BLOOD (Reported) Clotrimazole 1 % CREAM..G. 1 CED TOP QAMPM rash apply to affected area(s) Cyanocobalamin (Vitamin B-12) (Cyanocobalamin Injection) 1,000 MCG/ML VIAL 1 ML IM Q30D SUPPLEMENT (Reported) Docusate Sodium (Colace) 100 MG CAPSULE 1 CAP PO DAILY STOOL SOFTENER ( Reported) Ergocalciferol (Vitamin D2) (Vitamin D2) 50,000 UNIT CAPSULE 1 CAP PO Q30D SUPPLEMENT (Reported) Fluticasone/Salmeterol (Advair 250-50 Diskus) 250 MCG-50 MCG/DOSE BLST.W.DEV 1 PUF INH BID RESP. (Reported) Folic Acid 1 MG TABLET 1 TAB PO DAILY SUPPLEMENT (Reported) Furosemide 40 MG TABLET 1 TAB PO DAILY DIURETIC (Reported) Metoprolol Succinate 50 MG TAB.ER.24H 1 TAB PO DAILY HEART (Reported) Oxybutynin Chloride (Oxybutynin Chloride ER) (Unknown Strength) TAB.ER.24 ( Unknown Dose) PO DAILY UNKNOWN (Reported) Sennosides (Senna) 8.6 MG TABLET 2 TAB PO QHS GI (Reported) Sertraline HCl 50 MG TABLET 1 TAB PO DAILY DEPRESSION (Reported) Simvastatin (Simvastatin*) 40 MG TABLET 1 TAB PO QPM CHOLESTEROL (Reported) Tolterodine Tartrate (Detrol LA) 4 MG CAP.ER.24H 1 CAP PO DAILY BLADDER ( Reported) Triamcinolone Acetonide 0.1 % OINT...G. 1 CED TOP AD SKIN (Reported) Current Medications: Current Medications Sig/Lissa Start time Last Medication Dose Route Stop Time Status Admin Acetaminophen 650 MG Q6P PRN 11/20 1715 AC PO Albuterol Sulfate 2 PUF Q4-6 PRN PRN 11/20 1830 AC INH Apixaban 5 MG BID 11/21 0900 DC 11/22 PO 2127 Aspirin Buffered 81 MG DAILY 11/21 1108 AC 11/23 PO 1037 Atorvastatin Calcium 20 MG 1700 11/21 1700 AC 11/22 PO 1631 Budesonide/ 2 PUF BID 11/20 2100 AC 11/23 Formoterol Fumarate INH 1043 Docusate Sodium 100 MG DAILY 11/21 0900 AC 11/23 PO 1037 Hydrocodone Bitart/ 1 TAB Q8P PRN 11/20 1730 AC 11/23 Acetaminophen PO 1036 Metoprolol Succinate 50 MG DAILY 11/22 0900 AC 11/23 PO 1357 Oxybutynin Chloride 5 MG TID 11/22 0900 AC 11/23 PO 1357 Sertraline HCl 50 MG DAILY 11/20 1817 AC 11/23 PO 1037 Review of Systems Review of Systems: Pain and swelling in BLE, denies headache, vision loss, lateralized weakness or numbness. Ros limited by mental state, many responses irrelevant. Past History Travel History Traveled to [place] past 21 day No Medical History Blood Transfusion Hx: No Neurological: NONE EENT: PSORIASIS Cardiovascular: AFIB, CAD, mitral stenosis Respiratory: asthma Gastrointestinal: NONE Hepatic: NONE Renal: NONE Musculoskeletal: gout, OSTEOARTHRITIS Psychiatric: NONE Endocrine: NONE Blood Disorders: NONE Cancer(s): NONE RESIDENT INSPECTOR/Reproductive: NONE Other Medical Hx: Psoriasis Surgical History Surgical History: CABG Family History Relations & Conditions If Any: SISTER FH: diabetes mellitus Psychosocial History Where Do You Live? Home Who Do You Live With? self Services at Home: Home Health Aide, Nursing Primary Language: Tajik Smoking Status: Never Smoked ETOH Use: former heavy use Illicit Drug Use: denies illicit drug use Functional Ability Ambulation: walker Exam & Diagnostic Data Vital Signs and I&O Vital Signs Date Time Temp Pulse Resp B/P B/P Pulse O2 O2 Flow FiO2 Mean Ox Delivery Rate 11/23 1423 Room Air 11/23 1357 82 116/70 11/23 0554 98.2 74 20 110/62 97 Room Air 11/23 0133 98.3 76 20 122/60 97 Room Air 11/23 0000 94 Room Air 11/23 0000 98.7 70 18 166/64 94 Room Air 11/22 1600 100.1 80 19 120/80 93 Room Air Intake & Output 11/23 1600 11/23 0800 11/23 0000 Intake Total 480 110 240 Output Total 700 300 450 Balance -220 -190 -210 Intake, IV 10 Intake, Oral 480 100 240 Output, Urine 700 300 450 Patient 273 lb Weight Physical Exam: Overweight, edema both LE, comfortable at rest but c/o pain on any passive movement of legs Awake oriented to GH and name, not month,yr, season no language errors recall impaired affect normal VFF, EOMI, P4ERRL face symmetric and lower CN normal power/tone normal BUE coord slow but not ataxic sensation preserved to light touch all 4 extremities DTRs hypoactive, unable to test in LE Last 48 Hours of Lab Results: Laboratory Tests 11/23 11/23 11/23 0915 0915 0706 Chemistry Sodium (137 - 145 mmol/L) 137 Potassium (3.5 - 5.1 mmol/L) 3.9 Chloride (98 - 107 mmol/L) 103 Carbon Dioxide (22 - 30 mmol/L) 27 Anion Gap (5 - 16) 7 BUN (9 - 20 mg/dL) 19 Creatinine (0.7 - 1.2 mg/dL) 0.8 Estimated GFR (>60 ml/min) > 60 BUN/Creatinine Ratio (7 - 25 %) 23.8 Hematology CBC w Diff NO MAN DIFF REQ WBC (4.8 - 10.8 /CUMM) 5.0 RBC (4.70 - 6.10 /CUMM) 3.49 L Hgb (14.0 - 18.0 G/DL) 10.2 L Hct (42 - 52 %) 31.1 L MCV (80.0 - 94.0 FL) 89.2 MCH (27.0 - 31.0 PG) 29.2 MCHC (33.0 - 37.0 G/DL) 32.7 L RDW (11.5 - 14.5 %) 15.1 H Plt Count (130 - 400 /CUMM) 134 MPV (7.4 - 10.4 FL) 9.1 Gran % (42.2 - 75.2 %) 61.7 Lymphocytes % (20.5 - 51.1 %) 23.0 Monocytes % (1.7 - 9.3 %) 13.3 H Eosinophils % (0 - 5 %) 1.5 Basophils % (0.0 - 2.0 %) 0.5 Absolute Granulocytes (1.4 - 6.5 /CUMM) 3.1 Absolute Lymphocytes (1.2 - 3.4 /CUMM) 1.2 Lymphocytes (%) 4 1 Absolute Monocytes (0.10 - 0.60 /CUMM) 0.7 H Absolute Eosinophils (0.0 - 0.7 /CUMM) 0.1 Absolute Basophils (0.0 - 0.2 /CUMM) 0 % Normal PMNs (%) 86 92 [facility] (%) 9 7 Other Body Source Fluid WBC (0 - 5 /CUMM) 6336 H 3608 H Fld Total RBCs Counted (0 /CUMM) 7121439 H 77984 H Urines Sodium Urate Crystals (NONE) RARE 11/22 0450 Chemistry Sodium (137 - 145 mmol/L) 138 Potassium (3.5 - 5.1 mmol/L) 3.9 Chloride (98 - 107 mmol/L) 103 Carbon Dioxide (22 - 30 mmol/L) 25 Anion Gap (5 - 16) 10 BUN (9 - 20 mg/dL) 22 H Creatinine (0.7 - 1.2 mg/dL) 0.7 Estimated GFR (>60 ml/min) > 60 BUN/Creatinine Ratio (7 - 25 %) 31.4 H Hematology CBC w Diff NO MAN DIFF REQ WBC (4.8 - 10.8 /CUMM) 5.4 RBC (4.70 - 6.10 /CUMM) 3.53 L Hgb (14.0 - 18.0 G/DL) 10.0 L Hct (42 - 52 %) 31.3 L MCV (80.0 - 94.0 FL) 88.7 MCH (27.0 - 31.0 PG) 28.4 MCHC (33.0 - 37.0 G/DL) 32.0 L RDW (11.5 - 14.5 %) 14.5 Plt Count (130 - 400 /CUMM) 121 L MPV (7.4 - 10.4 FL) 8.7 Gran % (42.2 - 75.2 %) 65.4 Lymphocytes % (20.5 - 51.1 %) 20.0 L Monocytes % (1.7 - 9.3 %) 13.7 H Eosinophils % (0 - 5 %) 0.8 Basophils % (0.0 - 2.0 %) 0.1 Absolute Granulocytes (1.4 - 6.5 /CUMM) 3.6 Absolute Lymphocytes (1.2 - 3.4 /CUMM) 1.1 L Absolute Monocytes (0.10 - 0.60 /CUMM) 0.7 H Absolute Eosinophils (0.0 - 0.7 /CUMM) 0 Absolute Basophils (0.0 - 0.2 /CUMM) 0 Imaging/Other Studies: Dopplers: Occlusion MEJIA non-significant stenosis LICA vertebral flows antegrade CT Head: Age-appropriate moderate diffuse cortical atrophy is noted, unchanged since 09/10/2015. Mild chronic microvascular deep white matter ischemic changes are also present, unchanged. Specifically, no evidence of intra-axial mass, mass effect, extra-axial fluid collection, midline shift, acute intraparenchymal hemorrhage and/or acute infarction present. Assessment/Plan Assessment: Unwitnessed fall in challenged elderly male with severe edema BLE, previously using walker and witnessed fall at day care a week earlier. No evidence of syncope but possible, does have AF and cardiac disease Occlusion of carotid will not cause black-out, incidental finding Recommendations: I personally feel the risk of further falls, potential head injury with bleed or other hemorrhagic complications on full anticoagulation outweighs the risk of cardioembolism and think full anticoagulation should be stopped. Plavix and ASA substituted. Review decision with cardiology Consult Acknowledgment - Thank you for your consult request.
[2017-11-23 15:27] VITALS: BP 110/60
[2017-11-23 22:35] VITALS: BP 102/60
--- NOTE | 2017-11-23 23:12 | PN- Cardiology ---
Subjective Subjective: Sanguinous effusion aspirated from right knee, and serosanguinous aspirate from left knee. Given the patient's frailty, neurology belves risks of continuing anticoagulation for atrial fibrillation outweight benefits, and i completely agree. Objective Vital Signs and I&Os Vital Signs Date Time Temp Pulse Resp B/P B/P Pulse O2 O2 Flow FiO2 Mean Ox Delivery Rate 11/23 2235 99.0 76 20 102/60 96 Room Air 11/23 1527 98.0 95 20 110/60 98 Room Air 11/23 1423 Room Air 11/23 1357 82 116/70 11/23 0554 98.2 74 20 110/62 97 Room Air 11/23 0133 98.3 76 20 122/60 97 Room Air 11/23 0000 94 Room Air 11/23 0000 98.7 70 18 166/64 94 Room Air Intake & Output 11/23 1600 11/23 0800 11/23 0000 11/22 1600 11/22 0800 11/22 0000 Intake Total 480 446 924 0816 708 1180 Output Total 700 300 450 450 200 250 Balance -220 -190 -210 900 508 930 Intake, IV 10 750 468 460 Intake, Oral 480 100 240 600 240 720 Number 0 Bowel Movements Output, Stool 0 Output, Urine 700 300 450 450 200 250 Patient 273 lb 288 lb Weight Weight Bed scale Measurement Method Physical Exam: General Appearance: Alert, Oriented X3, Cooperative, No Acute Distress HEENT:UT, Mucous Membr. moist/pink Neck: Supple, trachea midline, no JVD Cardiovascular: Irregularly irregular, systolic ejection murmur 3/6 left sternal border, radiating to carotids. Lungs: Clear to Auscultation, Normal Air Movement Abdomen: Normal Bowel Sounds, Soft, No Tenderness. Extremities: b/l LE edema 3+ Vascular: Pulses Symmetrical Current Medications: Current Medications Sig/Lissa Start time Last Medication Dose Route Stop Time Status Admin Acetaminophen 650 MG Q6P PRN 11/20 1715 AC PO Albuterol Sulfate 2 PUF Q4-6 PRN PRN 11/20 1830 AC INH Apixaban 5 MG BID 11/21 0900 DC 11/22 PO 2127 Aspirin Buffered 81 MG DAILY 11/21 1108 AC 11/23 PO 1037 Atorvastatin Calcium 20 MG 1700 11/21 1700 AC 11/23 PO 1722 Budesonide/ 2 PUF BID 11/20 2100 AC 11/23 Formoterol Fumarate INH 2118 Docusate Sodium 100 MG DAILY 11/21 0900 AC 11/23 PO 1037 Hydrocodone Bitart/ 1 TAB Q8P PRN 11/20 1730 AC 11/23 Acetaminophen PO 1036 Metoprolol Succinate 50 MG DAILY 11/22 0900 AC 11/23 PO 1357 Oxybutynin Chloride 5 MG TID 11/22 0900 AC 11/23 PO 2117 Sertraline HCl 50 MG DAILY 11/20 1817 AC 11/23 PO 1037 Results Last 48 Hrs of Labs/Mics: Laboratory Tests 11/23/17914: Lymphocytes 4, % Normal PMNs 86, Misc Hematology Test 9, Fluid WBC 6336 H, Fld Total RBCs Counted 7336039 H 11/23/17914: Lymphocytes 1, % Normal PMNs 92, Misc Hematology Test 7, Fluid WBC 3608 H, Fld Total RBCs Counted 00183 H, Sodium Urate Crystals RARE 11/23/17 0706: Anion Gap 7, Estimated GFR > 60, BUN/Creatinine Ratio 23.8, CBC w Diff NO MAN DIFF REQ, RBC 3.49 L, MCV 89.2, MCH 29.2, MCHC 32.7 L, RDW 15.1 H, MPV 9.1, Gran % 61.7, Lymphocytes % 23.0, Monocytes % 13.3 H, Eosinophils % 1.5, Basophils % 0.5, Absolute Granulocytes 3.1, Absolute Lymphocytes 1.2, Absolute Monocytes 0.7 H, Absolute Eosinophils 0.1, Absolute Basophils 0 11/22/17 0450: Anion Gap 10, Estimated GFR > 60, BUN/Creatinine Ratio 31.4 H, CBC w Diff NO MAN DIFF REQ, RBC 3.53 L, MCV 88.7, MCH 28.4, MCHC 32.0 L, RDW 14.5, MPV 8.7, Gran % 65.4, Lymphocytes % 20.0 L, Monocytes % 13.7 H, Eosinophils % 0.8, Basophils % 0.1, Absolute Granulocytes 3.6, Absolute Lymphocytes 1.1 L, Absolute Monocytes 0.7 H, Absolute Eosinophils 0, Absolute Basophils 0 Assessment/Plan Assessment/Plan elderly gentleman with moderate intellectual disability, atrial fibrillation on eliquis, s/p bioprosthetic aortic valve replacement, who sustained a fall from his height with unclear circumstances. He has hemarthrosis in the right knee and possibly left knee as well, which likely are a result of his fall while anticoagulated. In addition, mr Garcia has signs of right heart failure and venous insuffiency , following IV rehydration. I am in agreement with Dr Brannon regarding permanently discontinuing this patient's anticoagulation given his overall frailty and fall risk. I would maintain him on aspirin alone. He would benefit from diuretics for his edema, perhaps 20 mg PO bid, in the setting of his recent dehydration status. Continue telemetry? Yes
[2017-11-24 06:47] VITALS: BP 108/64
--- NOTE | 2017-11-24 07:49 | PN- Housestaff ---
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 Poor historian. Still reports pain in his knees. Able to leave his legs now. Does not allow for physical exam on the lower extremities. He denies any headache, nausea, vomiting, dizziness, lightheadedness, chest pain, shortness of breath, abdominal pain. VSS. No events reported. Review of Systems Constitutional: Reports: no symptoms. Objective Last 24 Hrs of Vital Signs/I&O Vital Signs Date Time Temp Pulse Resp B/P B/P Pulse O2 O2 Flow FiO2 Mean Ox Delivery Rate 11/24 0810 98.4 68 20 108/64 11/24 0647 98.4 68 20 108/64 96 Room Air 11/23 2235 99.0 76 20 102/60 96 Room Air 11/23 1527 98.0 95 20 110/60 98 Room Air 11/23 1423 Room Air 11/23 1357 82 116/70 Intake & Output 11/24 1600 11/24 0800 11/24 0000 Intake Total 610 350 Output Total 225 700 Balance 385 -350 Intake, IV 10 Intake, Oral 600 350 Output, Urine 225 700 Patient 287 lb 286 lb Weight Physical Exam General Appearance: Alert, Cooperative Other Physical Findings: Skin: No Rashes HEENT: Atraumatic, PERRLA, EOMI, Mucous Membr. moist/pink Neck: Supple Lymphatic: Cervical nl Cardiovascular: Irregularly irregular Lungs: Clear to Auscultation, Normal Air Movement Abdomen: Normal Bowel Sounds, Soft, No Tenderness, No Hepatospenomegaly, No Masses Neurological: Normal Speech, Normal Tone, ROM, strength intact in UE, unable to test LEs given pain Extremities: b/l LE edema, knees tenderness to palpation Vascular: Pulses Symmetrical Current Medications: Current Medications Sig/Lissa Start time Last Medication Dose Route Stop Time Status Admin Acetaminophen 650 MG Q6P PRN 11/20 1715 AC PO Albuterol Sulfate 2 PUF Q4-6 PRN PRN 11/20 1830 AC INH Apixaban 5 MG BID 11/21 0900 DC 11/22 PO 2127 Aspirin Buffered 81 MG DAILY 11/21 1108 AC 11/24 PO 0810 Atorvastatin Calcium 20 MG 1700 11/21 1700 AC 11/23 PO 1722 Budesonide/ 2 PUF BID 11/20 2100 AC 11/24 Formoterol Fumarate INH 0810 Docusate Sodium 100 MG DAILY 11/21 0900 AC 11/24 PO 0810 Furosemide 20 MG 7:30 AM, & 4:30 PM 11/24 0730 AC 11/24 PO 0756 Furosemide 20 MG ONCE ONE 11/23 2345 DC 11/24 PO 11/23 2346 0032 Heparin Sodium 5,000 UNIT .STK-MED ONE 11/23 2056 DC (Porcine) IV 11/23 2057 Hydrocodone Bitart/ 1 TAB Q8P PRN 11/20 1730 AC 11/23 Acetaminophen PO 1036 Metoprolol Succinate 50 MG DAILY 11/22 0900 AC 11/24 PO 0810 Oxybutynin Chloride 5 MG TID 11/22 09 AC 11/24 PO 0810 Sertraline HCl 50 MG DAILY 11/20 1817 AC 11/24 PO 0810 Assessment/Plan Assessment: This is a 87-year-old male with past medical history significant for A. fib on apixaban, heart failure with reduced ejection fraction, mitral stenosis, prosthetic aortic valve, CAD status post CABG and aortic valve replacement, COPD /asthma, gout, osteoarthritis, psoriasis, HTN, HLD, OA, who presents after suffering an unwitnessed fall while at home. #Unwitnessed fall/questionable syncope: Patient is a poor historian and much of the history was obtained from his niece on admission who participates in his care. * c/w telemtry monitor * Serial troponin and EKG negative * EKG showed atrial fibrillation, rate under control no acute ST-T wave changes * Parcel Post Officer recs appreciated. * Per cardio stop apixaban for 24 hours now that sanguinus fluid noted on joint aspiration. * Patient has history of bioprosthetic aortic valve. Echocardiogram is pending. #Generalized weakness: * c/w PT #Bilateral knee pain: * No fever, leukocytosis. However history of psoriasis, on adalimumab * Uric acid was 6.1. Less likely gout. * Most possibly bilateral knee osteoarthritis, end-stage, flare up from recent fall * Knee joint aspiration revealed bilateral sanguinous fluid. * Orthopedic consult appreciated; follow recs * Per cardio and neuro is okay to discontinue anticoagulation and maintain the patient on aspirin only. * c/w current pain mx regimen * Will add scheduled Tylenol * Needs to work with PT #Right carotid artery complete occlusion carotid doppler- 1. 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 2. LEFT: Minimal, nonhemodynamically significant stenosis of the proximalleft internal carotid artery corresponding to a 0-49% stenosis by velocity criteria. 3. No evidence for hemodynamically significant stenosis in the external carotid arteries. * Vascular surgery following. * Family doesn't want any further escalation of care. Additionally in the setting of carotid occlusion no surgical intervention is recommended. * Recommended outpatient follow-up for surveillance of left internal carotid artery * Will continue baby aspirin #Bruise back of left thigh Patient has Bruise on the back of his left thigh status post fall. The borders were marked and has remained stable. We'll continue to monitor H&H. Will get CAT scan of by if hemoglobin drops to look for any hematoma #History of coronary artery disease * Continue baby aspirin #Hyperlipidemia * continue simvastatin #History of atrial fibrillation * c/w metoprolol succinate 50 daily * apixaban on hold as above. #Hypertension: * continue metoprolol succinate with holding parameters #Chronic heart failure with reduced ejection fraction * Hold Lasix for now given syncopal episode #Psoriasis * On adalimumab 40 mg injection every 2 weeks #Overactive bladder: * continue oxybutynin #Depression: * continue Zoloft Problem List: 1. Syncope and collapse 2. Weakness Pain Ratin Pain Location: Knees Pain Goal: Pain 4 or less Pain Plan: When necessary Vicodin, scheduled Tylenol Tomorrow's Labs & Rationales: BEPand magnesium to monitor electrolytes CBC to monitor H&H Jason Lopez 11/24/17 1115: Attending MD Review Statement Attending Statement Attending MD Statement: examined this patient, discuss w/resident/PA/DERMATOLOGY SALES REPRESENTATIVE, agreed w/resident/PA/DERMATOLOGY SALES REPRESENTATIVE, discussed with family, reviewed EMR data (avail), discussed with nursing, discussed with case mgmt, reviewed images, amended to note Attending Assessment/Plan: Patient seen/examined bedside. Carotid USG shows complete occlusion of right carotids not amenable to surgical intervention as per vascular surgery. Patient c/o b/l knee pain. He is on PO meds for pain control. Patient anticoagulation held for high risk of falls and now found to have hemarthrosis. Cardiology and Neurology recommend to disconitnue anticoagulation. Patient also on low dose diuretics as per cardiology recommendations. He has mild hyponetremia whch is asymptomatic. Woill watch for soidum levels and provide pain control. Patient encouraged to work with PT. Plan is to discharge to [facility].
[2017-11-24 08:31] LABS: ABSOLUTE BASOPHIL COUNT 0 /CUMM (0.0-0.2); ABSOLUTE EOSINOPHIL COUNT 0.1 /CUMM (0.0-0.7); ABSOLUTE GRANULOCYTE CT 3.8 /CUMM (1.4-6.5); ABSOLUTE LYMPH COUNT 0.9 /CUMM (1.2-3.4); ABSOLUTE MONOCYTE COUNT 0.6 /CUMM (0.10-0.60); BASOPHIL % 0.6 % (0.0-2.0); EOSINOPHIL % 1.2 % (0-5); GRANULOCYTE % 70.1 % (42.2-75.2); HEMATOCRIT 30.2 % (42-52); MEAN CORPUSCULAR HGB 29.5 PG (27.0-31.0); MEAN CORPUSCULAR HGB CONC 33.3 G/DL (33.0-37.0); MEAN CORPUSCULAR VOLUME 88.7 FL (80.0-94.0); MEAN PLATELET VOLUME 9.6 FL (7.4-10.4); PLATELET COUNT 154 /CUMM (130-400); RBC DISTRIBUTION WIDTH 14.5 % (11.5-14.5); WHITE BLOOD CELL COUNT 5.4 /CUMM (4.8-10.8)
[2017-11-24 15:23] VITALS: BP 104/68
[2017-11-24 23:05] VITALS: BP 100/64
[2017-11-25 05:24] VITALS: BP 108/60
--- NOTE | 2017-11-25 08:00 | PN- Housestaff ---
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 Poor historian. Denies any pain in his knees. Able to lift his legs now. He denies any headache, nausea, vomiting, dizziness, lightheadedness, chest pain, shortness of breath, abdominal pain. VSS. No events reported. Review of Systems Constitutional: Reports: no symptoms. Objective Last 24 Hrs of Vital Signs/I&O Vital Signs Date Time Temp Pulse Resp B/P B/P Pulse O2 O2 Flow FiO2 Mean Ox Delivery Rate 11/25 1729 98.2 73 18 110/62 11/25 0837 73 110/62 11/25 0524 98.2 62 18 108/60 96 Room Air 11/24 2305 99.1 85 18 100/64 93 Room Air Intake & Output 11/25 1600 11/25 0800 11/25 0000 Intake Total 460 20 700 Output Total 633 321 2964 Balance 110 -780 -355 Intake, IV 10 Intake, Oral 450 20 700 Number 1 Bowel Movements Output, Urine 581 464 4343 Patient 251 lb 251 lb Weight Physical Exam General Appearance: Alert, Cooperative, No Acute Distress Other Physical Findings: Skin: No Rashes HEENT: Atraumatic, PERRLA, EOMI, Mucous Membr. moist/pink Neck: Supple Lymphatic: Cervical nl Cardiovascular: Irregularly irregular Lungs: Clear to Auscultation, Normal Air Movement Abdomen: Normal Bowel Sounds, Soft, No Tenderness, No Hepatospenomegaly, No Masses Neurological: Normal Speech, Normal Tone, ROM, strength intact in UE Extremities: b/l LE edema, knees non-tender to palpation Vascular: Pulses Symmetrical Current Medications: Current Medications Sig/Lissa Start time Last Medication Dose Route Stop Time Status Admin Acetaminophen 650 MG .STK-MED ONE 11/25 1154 DC PO 11/25 1155 Acetaminophen 650 MG .STK-MED ONE 11/25 0506 DC PO 11/25 0507 Acetaminophen 650 MG .STK-MED ONE 11/25 0008 DC PO 11/25 0009 Acetaminophen 650 MG Q6 11/24 1200 DCD 11/25 PO 1201 Albuterol Sulfate 2 PUF Q4-6 PRN PRN 11/20 1830 DCD INH Aspirin Buffered 81 MG DAILY 11/21 1108 DCD 11/25 PO 0837 Atorvastatin Calcium 20 MG 1700 11/21 1700 DCD 11/25 PO 1525 Bisacodyl 10 MG ONCE ONE 11/25 1200 DC 11/25 CT 11/25 1201 1201 Budesonide/ 2 PUF BID 11/20 2100 DCD 11/25 Formoterol Fumarate INH 0837 Docusate Sodium 100 MG DAILY 11/21 0900 DCD 11/25 PO 0837 Furosemide 20 MG 7:30 AM, & 4:30 PM 11/24 0730 DCD 11/25 PO 1525 Hydrocodone Bitart/ 1 TAB Q8P PRN 11/20 1730 DCD 11/23 Acetaminophen PO 1036 Metoprolol Succinate 50 MG DAILY 11/22 0900 DCD 11/25 PO 0837 Oxybutynin Chloride 5 MG TID 11/22 0900 DCD 11/25 PO 1246 Patient Medication 1 ED ONE ONE 11/25 1730 DC Teaching ED 11/25 1731 Sertraline HCl 50 MG DAILY 11/20 1817 DCD 11/25 PO 0837 Assessment/Plan Assessment: This is a 87-year-old male with past medical history significant for A. fib on apixaban, heart failure with reduced ejection fraction, mitral stenosis, prosthetic aortic valve, CAD status post CABG and aortic valve replacement, COPD /asthma, gout, osteoarthritis, psoriasis, HTN, HLD, OA, who presents after suffering an unwitnessed fall while at home. #Unwitnessed fall/questionable syncope: Patient is a poor historian and much of the history was obtained from his niece on admission who participates in his care. * c/w telemtry monitor * Serial troponin and EKG negative * EKG showed atrial fibrillation, rate under control no acute ST-T wave changes * Continuing Education Instructor recs appreciated. * Per cardio stop apixaban and maintain the patient on aspirin only now that sanguinus fluid noted on joint aspiration. * Patient has history of bioprosthetic aortic valve. Echocardiogram is pending. #Generalized weakness: * c/w PT #Bilateral knee pain: * No fever, leukocytosis. However history of psoriasis, on adalimumab * Uric acid was 6.1. Less likely gout. * Most possibly bilateral knee osteoarthritis, end-stage, flare up from recent fall * Knee joint aspiration revealed bilateral sanguinous fluid. * Orthopedic consult appreciated; follow recs * Per cardio and neuro is okay to discontinue anticoagulation and maintain the patient on aspirin only. * c/w current pain mx regimen * c/w scheduled Tylenol * Needs to work with PT #Right carotid artery complete occlusion carotid doppler- 1. 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 2. LEFT: Minimal, nonhemodynamically significant stenosis of the proximalleft internal carotid artery corresponding to a 0-49% stenosis by velocity criteria. 3. No evidence for hemodynamically significant stenosis in the external carotid arteries. * Vascular surgery following. * Family doesn't want any further escalation of care. Additionally in the setting of carotid occlusion no surgical intervention is recommended. * Recommended outpatient follow-up for surveillance of left internal carotid artery * Will continue baby aspirin #Bruise back of left thigh Patient has Bruise on the back of his left thigh status post fall. The borders were marked and has remained stable. We'll continue to monitor H&H. Will get CAT scan of by if hemoglobin drops to look for any hematoma #History of coronary artery disease * Continue baby aspirin #Hyperlipidemia * continue simvastatin #History of atrial fibrillation * c/w metoprolol succinate 50 daily * apixaban on hold as above. #Hypertension: * continue metoprolol succinate with holding parameters #Chronic heart failure with reduced ejection fraction * Hold Lasix for now given syncopal episode #Psoriasis * On adalimumab 40 mg injection every 2 weeks #Overactive bladder: * continue oxybutynin #Depression: * continue Zoloft Problem List: 1. Syncope and collapse 2. Weakness Pain Ratin Pain Location: Knees Pain Goal: Pain 4 or less Pain Plan: Scheduled tylenol Tomorrow's Labs & Rationales: Jason Howell 11/25/17 1044: Attending MD Review Statement Attending Statement Attending MD Statement: examined this patient, discuss w/resident/PA/BUCKET TURNER, agreed w/resident/PA/BUCKET TURNER, discussed with family, reviewed EMR data (avail), discussed with nursing, discussed with case mgmt, reviewed images, amended to note Attending Assessment/Plan: Patient tolerating diuretics and working with PT. His knee pain is well controlled now. Patient vital stable for discharge. Patient can be discharged to [facility].
[2017-11-25] MEDS ORDERED: TYLENOL325 M1 PO (12:30)
[2017-11-25] MEDS ORDERED: FUROSEMIDE20 M1 PO (12:30)
--- NOTE | 2017-11-25 12:30 | Patient Discharge Instructions ---
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 -Please follow up with vascular surgeon, Dr. Levy in 1 week after discharge. -Please follow-up with die repairer stamping, Dr. Purdy in 1 week after discharge. -Please follow-up with orthopedics Dr. Rivera in 1 week after discharge. -Please follow up with Neurologist, Dr. Sanabria in 1 week after discharge. Diet Continue normal diet: Yes Recommended Diet: Heart Healthy Activity Additional ACTIVITY Info: As tolerated/walker Acute Coronary Syndrome Inclusion Criteria At DC or during hospital stay patient has or had the following: Discharge Core Measures Meds if any: Prescribed or Continued at Discharge Meds if any: NOT Prescribed or Continued at Discharge Congestive Heart Failure Inclusion Criteria At DC or during hospital stay patient has or had the following: Discharge Core Measures Meds if any: Prescribed or Continued at Discharge Meds if any: NOT Prescribed or Continued at Discharge Cerebrovascular accident Inclusion Criteria At DC or during hospital stay patient has or had the following: CVA/TIA Diagnosis No Discharge Core Measures Meds if any: Prescribed or Continued at Discharge Meds if any: NOT Prescribed or Continued at Discharge Venous thromboembolism Discharge Core Measures - Per Current guidelines, there needs to be overlap - treatment for the first 5 days of Warfarin therapy. - If discharged on Warfarin prior to 5 days of - overlap therapy, the patient will need to be - assessed for post discharge needs including - *Post discharge parental anticoagulation - *Warfarin and/or parental anticoagulation education - *Follow up date to check INR post discharge Meds if any: Prescribed or Continued at Discharge Note: Overlap Therapy is Warfarin and Anticoagulant Meds if any: NOT Prescribed or Continued at Discharge
[2017-11-25] MEDS ORDERED: OXYBUTYNIN CHLO15 M1 PO (12:32)
[2017-11-25 17:29] VITALS: BP 110/62
== END 2017-11-25 17:50 | DRG 312 ==
LOC: ERH 11:56 → 1NO 16:53 → ERHI 16:53 → CRI 16:53 → 1NO 16:53 → ENRESERV 11-21 02:09 → CRI 11-21 03:08 → 1NO 11-23 01:19 → ENTRNSPT 11-25 13:51 → EDTRNSPT 11-25 13:53 → EDTRNSPTTYP 11-25 13:53 → ENPENDDIS 11-25 15:18 → 1NO 11-25 17:50 → CMPTRNSPT 11-26 07:13
PROVIDERS: Hospitalist; Internal Medicine; Internal Medicine Hematology & Oncology; Physician Assistant Medical
PROC: 0S9C3ZZ Drainage of Right Knee Joint, Percutaneous Approach (ICD-10-PCS; principal; 2017-11-23)
PROC: 0S9D3ZX Drainage of Left Knee Joint, Percutaneous Approach, Diagnostic (ICD-10-PCS; principal; 2017-11-23)
DX: R55 Syncope and collapse (principal); E87.2 Acidosis; I48.91 Unspecified atrial fibrillation; I11.0 Hypertensive heart disease with heart failure; I50.22 Chronic systolic (congestive) heart failure; E86.0 Dehydration; L40.50 Arthropathic psoriasis, unspecified; F79 Unspecified intellectual disabilities; E78.5 Hyperlipidemia, unspecified; F32.9 Major depressive disorder, single episode, unspecified; I05.0 Rheumatic mitral stenosis; I25.10 Atherosclerotic heart disease of native coronary artery without angina pectoris; I44.7 Left bundle-branch block, unspecified; J44.9 Chronic obstructive pulmonary disease, unspecified; Z79.01 Long term (current) use of anticoagulants; Z91.81 History of falling; M10.9 Gout, unspecified; Z95.1 Presence of aortocoronary bypass graft; Z95.2 Presence of prosthetic heart valve; R26.2 Difficulty in walking, not elsewhere classified; R53.1 Weakness; M17.0 Bilateral primary osteoarthritis of knee; M25.462 Effusion, left knee; M25.461 Effusion, right knee; M19.90 Unspecified osteoarthritis, unspecified site; W18.30XA Fall on same level, unspecified, initial encounter; Y92.538 Other ambulatory health services establishments as the place of occurrence of the external cause; Z79.82 Long term (current) use of aspirin; Z79.51 Long term (current) use of inhaled steroids; N32.81 Overactive bladder; Z66 Do not resuscitate
CPT/HCPCS: 1NP; 87075; CCU; ERO; 36415; 36592; 73562-LT; 73562-RT; 74176; 81001; 82436; 87040; 87086; 87804; 87804-59; 93005; 93010; 93306; 93970; 97110-GO; 97161-GP; J1644; J3490; J7040